=== PATIENT | male | born 1955 | race Caucasian/White ===

== ENCOUNTER 2017-01-04 10:37 | Inpatient (IN) | payer OTHER ==
[2017-01-04] VITALS (7 sets, daily range): BP systolic 110–134; BP diastolic 84–106; PULSE 84–190; RESP 18–22; TEMP 97.5–98; O2SAT 95–100
[~2017-01-04] VITALS: Ht 182.9 cm; Wt 74.5 kg
--- NOTE | 2017-01-04 10:50 | PD ---
HPI Chief Complaint: Cardiac Complaint Time Seen by Provider: 10:47 Travel History International Travel<30 days: No Contact w/Intl Traveler<30days: No Traveled to known affect area: No History of Present Illness HPI Patient is a 61-year-old male presents emergency Department with palpitations the funny feeling in his chest. He is also had some shortness of breath. 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 Initially was noted to have a heart rate of 180 in triage and was brought back to the emergency department expeditiously. He states he is also noticed that his legs of been more swollen recently. Denies any nausea vomiting denies any long stasis trips or history of blood clots. FOR[facility]LY [facility], LATER [facility] Past Medical History Medical History: Denies Significant Hx Past Surgical History Surgical History: No Previous Surgery Social History Alcohol Use: Yes Tobacco Use: Yes Substance Use: No (Ex cocaine user.) Allergies-Medications (Allergen,Severity, Reaction): Coded Allergies: No Known Allergies (Unverified , 01/04/17) Review of Systems Except as stated in HPI: all other systems reviewed are Neg Physical Exam Narrative GENERAL: Well-developed well-nourished no obvious distress SKIN: Focused skin assessment warm/dry. HEAD: Atraumatic. Normocephalic. EYES: Pupils equal and round. No scleral icterus. No injection or drainage. ENT: No nasal bleeding or discharge. Mucous membranes pink and moist. NECK: Trachea midline. No JVD. CARDIOVASCULAR: Mildly tachycardic and regular rhythm.. 2+ bilateral equal pulses in all 4 extremity's.. No murmur appreciated. RESPIRATORY: No accessory muscle use. Clear to auscultation. Breath sounds equal bilaterally. GASTROINTESTINAL: Abdomen soft, non-tender, nondistended. Hepatic and splenic margins not palpable. MUSCULOSKELETAL: No obvious deformities. No clubbing. No cyanosis. 2+ bilateral lower extremity edema from the knees distally. Slightly larger on the right. NEUROLOGICAL: Awake and alert. No obvious cranial nerve deficits. Motor grossly within normal limits. Normal speech. PSYCHIATRIC: Appropriate mood and affect; insight and judgment normal. Data Data Last Documented VS Vital Signs Date Time Temp Pulse Resp B/P Pulse Ox O2 Delivery O2 Flow Rate FiO2 01/04/17 10:55 100 Room Air 01/04/17 10:50 97.9 108 20 134/106 Orders Electrocardiogram (01/04/17 10:47) B-Type Natriuretic Peptide (01/04/17 10:47) Ckmb (Isoenzyme) Profile (01/04/17 10:47) Complete Blood Count With Diff (01/04/17 10:47) Comprehensive Metabolic Panel (01/04/17 10:47) Magnesium (Mg) (01/04/17 10:47) Prothrombin Time / Inr (Pt) (01/04/17 10:47) Act Partial Throm Time (Ptt) (01/04/17 10:47) Troponin I (01/04/17 10:47) Chest, Single Ap (01/04/17 10:47) Ecg Monitoring (01/04/17 10:47) Iv Access Insert/Monitor (01/04/17 10:47) Oximetry (01/04/17 10:47) Oxygen Administration (01/04/17 10:47) Aspirin Chew (Aspirin Chew) (01/04/17 11:00) Sodium Chloride 0.9% Flush (Ns Flush) (01/04/17 11:00) Ct Pulmonary Angiogram (01/04/17 10:47) Us Leg Venous Doppler Bilat (01/04/17 10:47) Sodium Chlorid 0.9% 500 Ml Inj (Ns 500 M (01/04/17 11:00) Iohexol 350 Inj (Omnipaque 350 Inj) (01/04/17 13:21) Furosemide Inj (Lasix Inj) (01/04/17 13:30) Admit Order (Ed Use Only) (01/04/17 ) Labs Laboratory Tests Test 01/04/17 10:55 White Blood Count 7.2 TH/MM3 Red Blood Count 4.54 MIL/MM3 Hemoglobin 13.9 GM/DL Hematocrit 43.2 % Mean Corpuscular Volume 95.2 FL Mean Corpuscular Hemoglobin 30.6 PG Mean Corpuscular Hemoglobin 32.2 % Concent Red Cell Distribution Width 15.5 % Platelet Count 298 TH/MM3 Mean Platelet Volume 7.7 FL Neutrophils (%) (Auto) 64.5 % Lymphocytes (%) (Auto) 24.8 % Monocytes (%) (Auto) 8.5 % Eosinophils (%) (Auto) 1.4 % Basophils (%) (Auto) 0.8 % Neutrophils # (Auto) 4.6 TH/MM3 Lymphocytes # (Auto) 1.8 TH/MM3 Monocytes # (Auto) 0.6 TH/MM3 Eosinophils # (Auto) 0.1 TH/MM3 Basophils # (Auto) 0.1 TH/MM3 CBC Comment DIFF FINAL Differential Comment Prothrombin Time 12.5 SEC Prothromb Time International 1.1 RATIO Ratio Activated Partial 25.4 SEC Thromboplast Time Sodium Level 139 MEQ/L Potassium Level 4.4 MEQ/L Chloride Level 108 MEQ/L Carbon Dioxide Level 23.8 MEQ/L Anion Gap 7 MEQ/L Blood Urea Nitrogen 23 MG/DL Creatinine 1.28 MG/DL Estimat Glomerular Filtration 57 ML/MIN Rate Random Glucose 75 MG/DL Calcium Level 8.6 MG/DL Magnesium Level 2.1 MG/DL Total Bilirubin 0.6 MG/DL Aspartate Amino Transf 28 U/L (AST/SGOT) Alanine Aminotransferase 59 U/L (ALT/SGPT) Alkaline Phosphatase 132 U/L Total Creatine Kinase 96 U/L Troponin I 0.05 NG/ML B-Type Natriuretic Peptide 2441 PG/ML Total Protein 6.9 GM/DL Albumin 3.5 GM/DL [facility] Medical Decision Making Medical Screen Exam Complete: Yes Emergency Medical Condition: Yes Interpretation(s) EKG shows sinus tachycardia at a rate of 114, intervals otherwise within normal limits. Left atrial enlargement, borderline LVH. T-wave inversions in V4 through V6 without any ST segment elevation. This is an abnormal EKG. Differential Diagnosis DVT, PE, ACS, acute CHF, new onset CHF, AMI. Narrative Course Patient roomed emergency department, initial workup and physical exam consistent with new onset CHF and pleural effusions. DVT study negative, PE study negative. Recommended patient to be admitted for new onset CHF and management an. He is agreeable. Was given Lasix. Aspirin. Heart rate somewhat better in emerged Department with minimal intervention. Diagnosis Primary Impression: Tachycardia Additional Impressions: New onset of congestive heart failure Heart failure Pleural effusion Admitting Information Admitting Physician Requests: Admit Condition: Stable Heri Cramer MD Jan 04, 2017 10:50
[2017-01-04] MEDS ORDERED: SODIUM CHLORID 0.9% 500 ML INJ 500 ML IV ONE (11:00)
[2017-01-04] MEDS ORDERED: ASPIRIN 81 MG CHEW TAB PO ONE (11:00)
[2017-01-04] MEDS ORDERED: SODIUM CHLORIDE 0.9% FLUSH 10 ML FLUSH IVF PRN (11:00)
[2017-01-04 11:16] LABS: AUTOMATED NEUTROPHIL # 4.6 TH/MM3 (1.8-7.7); BASOPHIL # 0.1 TH/MM3 (0-0.2); BASOPHIL % 0.8 % (0.0-2.0); EOSINOPHIL # 0.1 TH/MM3 (0-0.4); EOSINOPHIL % 1.4 % (0.0-4.0); HEMATOCRIT 43.2 % (39.0-51.0); HEMO FLAGS DIFF FINAL; LYMPH % 24.8 % (9.0-44.0); LYMPHOCYTE # 1.8 TH/MM3 (1.0-4.8); MEAN CELL VOLUME 95.2 FL (80.0-100.0); MEAN CORPUSCULAR HEMOGLOBIN 30.6 PG (27.0-34.0); MEAN CORPUSCULAR HGB CONC 32.2 % (32.0-36.0); MONO % 8.5 % (0.0-8.0); NEUT % 64.5 % (16.0-70.0); PLATELET COUNT 298 TH/MM3 (150-450); RED BLOOD COUNT 4.54 MIL/MM3 (4.50-5.90); RED CELL DISTRIBUTION WIDTH 15.5 % (11.6-17.2); WHITE BLOOD COUNT 7.2 TH/MM3 (4.0-11.0)
[2017-01-04 11:21] LABS: APTT (PATIENT) 25.4 SEC (24.3-30.1); INTERNATIONAL NORMALIZED RATIO 1.1 RATIO; PROTHROMBIN TIME - PATIENT 12.5 SEC (9.8-11.6)
[2017-01-04 11:30] LABS: ANION GAP 7 MEQ/L (5-15); AST (GOT) 28 U/L (15-37); BICARBONATE 23.8 MEQ/L (21.0-32.0); BLOOD UREA NITROGEN 23 MG/DL (7-18); CHLORIDE 108 MEQ/L (98-107); GLOMERULAR FILTRATION RATE 57 ML/MIN (>89); MAGNESIUM 2.1 MG/DL (1.5-2.5); POTASSIUM 4.4 MEQ/L (3.5-5.1); SODIUM (NA) 139 MEQ/L (136-145)
[2017-01-04 11:31] LABS: ALT (GPT) 59 U/L (12-78)
[2017-01-04 11:35] LABS: ALKALINE PHOSPHATASE 132 U/L (45-117); TOTAL BILIRUBIN ADULT 0.6 MG/DL (0.2-1.0)
[2017-01-04 11:39] LABS: CREATINE KINASE 96 U/L (39-308)
--- NOTE | 2017-01-04 11:51 | RADRPT ---
EXAM DATE/TIME: 01/04/2017 11:08 [facility] COMPARISON: No previous studies available for comparison. INDICATIONS : Short of breath and difficulty breathing for a few weeks. MEDICAL HISTORY : None. SURGICAL HISTORY : None. ENCOUNTER: Initial ACUITY: 2 weeks PAIN SCORE: 0/10 LOCATION: Bilateral chest FINDINGS: The heart is enlarged. Minimal patchiness is noted within the right medial lung base consistent with atelectasis and/or mild infiltrate. The left lung is clear. CONCLUSION: 1. Minimal patchiness within the medial aspect of the right lung base consistent with atelectasis and /or mild infiltrate. Clinical correlation is recommended. 2. Cardiomegaly. Heri Patino MD on January 04, 2017 at 11:21 Board Certified Radiologist. This report was verified electronically.
--- NOTE | 2017-01-04 12:21 | RADRPT ---
EXAM DATE/TIME: 01/04/2017 11:16 [facility] COMPARISON: No previous studies available for comparison. INDICATIONS : Bilateral leg swelling. MEDICAL HISTORY : Bilateral leg swelling. SURGICAL HISTORY : None. ENCOUNTER: Initial ACUITY: 1 week PAIN SCORE: 4/10 LOCATION: Bilateral leg. TECHNIQUE: Venous ultrasound of the left and right leg was performed from the inguinal ligament to the proximal calf. Real-time, color Doppler and spectral tracing, compression and augmentation techniques were us ed. FINDINGS: RIGHT LEG: There is normal compressibility of the deep venous system from the inguinal region to the proximal ca lf. No echogenic clot is seen in the lumen of the common femoral, femoral, popliteal, and posterior tibial veins. There is a normal response of the venous system to proximal and distal augmentation an d respiration. LEFT LEG: There is normal compressibility of the deep venous system from the inguinal region to the proximal ca lf. No echogenic clot is seen in the lumen of the common femoral, femoral, popliteal, and posterior tibial veins. There is a normal response of the venous system to proximal and distal augmentation an d respiration. CONCLUSION: No evidence of deep venous thrombosis within the lower extremities. Heri Patino MD on January 04, 2017 at 12:19 Board Certified Radiologist. This report was verified electronically.
[2017-01-04] MEDS ORDERED: IOHEXOL 350 MG/ML 10 ML VIAL (for RAD DIAG) IV ONE (13:21)
[2017-01-04] MEDS ORDERED: FUROSEMIDE 40 MG/4 ML VIAL IV PUSH ONE (13:30)
--- NOTE | 2017-01-04 13:31 | RADRPT ---
EXAM DATE/TIME: 01/04/2017 13:12 [facility] COMPARISON: CHEST SINGLE AP, January 04, 2017, 11:08. INDICATIONS : Dypsnea with shortness of breath and difficulty breathing. Bilateral lower extremity swelling. IV CONTRAST: 55 cc Omnipaque 350 (iohexol) IV RADIATION DOSE: 10.03 CTDIvol (mGy) MEDICAL HISTORY : None SURGICAL HISTORY : None. ENCOUNTER: Initial ACUITY: 1 day PAIN SCALE: 2/10 LOCATION: chest TECHNIQUE: Volumetric scanning of the chest was performed using a pulmonary embolism protocol MIP images were re constructed. Using automated exposure control and adjustment of the mA and/or kV according to patien t size, radiation dose was kept as low as reasonably achievable to obtain optimal diagnostic quality images. DICOM format image data is available electronically for review and comparison. Follow-up recommendations for detected pulmonary nodules are based at a minimum on nodule size and pa tient risk factors according to Fleischner Society Guidelines. FINDINGS: PULMONARY ARTERIES: No filling defects are seen in the pulmonary arteries through the segmental level. LUNGS: There is no pneumothorax . There is mild patchy consolidation in the right posterior lung base which may be compressive. No concerning pulmonary nodule is visualized. PLEURAE: There are small to moderate bilateral pleural effusions right greater than left. MEDIASTINUM: There is good visualization of the great vessels of the middle mediastinum. No evidence of mediastin al or hilar adenopathy/mass. Heart size is mildly enlarged. MUSCULOSKELETAL: Within normal limits for patient age. MISCELLANEOUS: The visualized upper abdominal organs demonstrate no acute abnormality. There are degenerative change s in the right glenohumeral joint. CONCLUSION: 1. No evidence of pulmonary embolism. 2. Rhls-th-[id number] bilateral pleural effusions right greater than left. 3. No pulmonary edema. Andrew French MD on January 04, 2017 at 13:27 Board Certified Radiologist. This report was verified electronically.
[2017-01-04] MEDS ORDERED: SODIUM CHLORIDE 0.9% FLUSH 10 ML FLUSH IV FLUSH PRN (14:00)
[2017-01-04] MEDS ORDERED: HEPARIN SODIUM - SQ 10,000 UNITS/ML VIAL SQ SCH (15:00)
--- NOTE | 2017-01-04 15:31 | PD.CONS ---
HPI Consult Requested By Primary Care Physician No Primary Care Physician History of Present Illness 61-year-old male presents to the ER with palpitations and shortness of breath no significant past medical history. 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 In the triage heart rate of 180, uncontrolled BP. He also reports legs swelling. BNP elevated. Denies nausea, vomiting, diarrhea, bleeding, chills, fever, chest pain, PND or orthopnea. Cardiology consulted for evaluation of new onset CHF. Review of Systems Consitutional: DENIES: Fatigue, Fever, Chills, Weight gain, Weight loss Eyes: DENIES: Amaurosis Fugax, Change in vision HEENT: DENIES: Lightheadedness, Change in hearing Respiratory: DENIES: See HPI, Cough, Snoring, Shortness of breath, Wheezing, Sputum production Cardiovascular: COMPLAINS OF: See HPI, Palpitations, DENIES: Chest pain, Syncope, Tachycardia Gastrointestinal: DENIES: Nausea, Vomiting, Change in bowel habits, Reflux, Bloody stools, Melena Genitourinary: DENIES: Urinary incontinence, Difficulty voiding Integumentary: DENIES: Rash Neurologic: DENIES: Tingling or numbness, Memory problems, Poor Balance, Stroke symptoms Musculoskeletal: DENIES: Joint pain, Muscle pain, Limited range of motion, Back pain Psychiatric: DENIES: Anxiety, Depression, Sleep disturbances Hematologic: DENIES: Bruising tendencies, Bleeding tendencies Endocrine: DENIES: Weight gain, Weight loss, Thyroid disease Past Family Social History Allergies: Coded Allergies: No Known Allergies (Unverified , 01/04/17) Past Medical History None Past Surgical History None Reported Medications Current Medications Medications (Trade) Dose Ordered Sig/Gian Route Start Time Stop Time Status Last Admin (NS Flush) 2 ml UNSCH PRN IVF 01/04/17 11:00 (NS Flush) 2 ml BID IV FLUSH 01/04/17 21:00 (Lasix Inj) 40 mg BID@18 IVP 01/05/17 09:00 (KCl) 20 meq DAILY PO 01/05/17 09:00 (Aspirin Chew) 81 mg DAILY CHEW 01/05/17 09:00 (Prinivil) 10 mg DAILY PO 01/05/17 09:00 (Heparin Inj) 5,000 units Q12H SQ 01/04/17 15:00 Active Ordered Medications Current Medications Medications (Trade) Dose Ordered Sig/Gian Route Start Time Stop Time Status Last Admin (NS Flush) 2 ml UNSCH PRN IVF 01/04/17 11:00 (NS Flush) 2 ml BID IV FLUSH 01/04/17 21:00 (Lasix Inj) 40 mg BID@09,18 IVP 01/05/17 09:00 (KCl) 20 meq DAILY PO 01/05/17 09:00 (Aspirin Chew) 81 mg DAILY CHEW 01/05/17 09:00 (Prinivil) 10 mg DAILY PO 01/05/17 09:00 (Heparin Inj) 5,000 units Q12H SQ 01/04/17 15:00 Social History +Alcohol + hx Cocaine Physical Exam Vital Signs Vital Signs Date Time Temp Pulse Resp B/P Pulse Ox O2 Delivery O2 Flow Rate FiO2 01/04/17 10:55 100 Room Air 01/04/17 10:55 100 Room Air 01/04/17 10:50 97.9 108 20 134/106 100 Room Air 01/04/17 10:46 97.9 112 22 134/106 100 01/04/17 10:42 97.5 190 19 131/100 95 Laboratory Laboratory Tests Test 01/04/17 10:55 White Blood Count 7.2 Red Blood Count 4.54 Hemoglobin 13.9 Hematocrit 43.2 Mean Corpuscular Volume 95.2 Mean Corpuscular Hemoglobin 30.6 Mean Corpuscular Hemoglobin 32.2 Concent Red Cell Distribution Width 15.5 Platelet Count 298 Mean Platelet Volume 7.7 Neutrophils (%) (Auto) 64.5 Lymphocytes (%) (Auto) 24.8 Monocytes (%) (Auto) 8.5 Eosinophils (%) (Auto) 1.4 Basophils (%) (Auto) 0.8 Neutrophils # (Auto) 4.6 Lymphocytes # (Auto) 1.8 Monocytes # (Auto) 0.6 Eosinophils # (Auto) 0.1 Basophils # (Auto) 0.1 CBC Comment DIFF FINAL Differential Comment Prothrombin Time 12.5 Prothromb Time International 1.1 Ratio Activated Partial 25.4 Thromboplast Time Sodium Level 139 Potassium Level 4.4 Chloride Level 108 Carbon Dioxide Level 23.8 Anion Gap 7 Blood Urea Nitrogen 23 Creatinine 1.28 Estimat Glomerular Filtration 57 Rate Random Glucose 75 Calcium Level 8.6 Magnesium Level 2.1 Total Bilirubin 0.6 Aspartate Amino Transf 28 (AST/SGOT) Alanine Aminotransferase 59 (ALT/SGPT) Alkaline Phosphatase 132 Total Creatine Kinase 96 Troponin I 0.05 B-Type Natriuretic Peptide 2441 Total Protein 6.9 Albumin 3.5 Result Diagram: 01/04/17 1055 01/04/17 1055 Imaging Last Impressions Lower Extremity Ultrasound 01/04/17 1047 Signed Impressions: Service Date/Time: December 11:16 - CONCLUSION: No evidence of deep venous thrombosis within the lower extremities. Heri Patino MD Chest X-Ray 01/04/17 104 Signed Impressions: Service Date/Time: , January 04, 2017 11:08 - CONCLUSION: 1. Minimal patchiness within the medial aspect of the right lung base consistent with atelectasis and/or mild infiltrate. Clinical correlation is recommended. 2. Cardiomegaly. Heri Patino MD CT Angiography 01/04/171046 Signed Impressions: Service Date/Time: December 13:12 - CONCLUSION: 1. No evidence of pulmonary embolism. 2. [id number] bilateral pleural effusions right greater than left. 3. No pulmonary edema. Andrew French MD Assessment and Plan Problem List: (1) Heart failure Assessment and Plan: 61 y/o M with new onset heart failure. Cardiac risk factors uncontrolled BP, age. Chest pain free. Recommendations: - IV diuresis - Strict I&O - Low salt diet - 2Dechocardiogram - Aspirin 81 mg PO daily - Lipid profile - TSH, Free T3 and T4 - Cycle cardiac markers x3 - Toxicology screen - Ischemic w/o before d/c (2) Tachycardia Villafuerte-Moe Silver MD Jan 04, 2017 15:31
--- NOTE | 2017-01-04 16:07 | HHI.HP ---
[facility] No Primary Care Physician Admission Diagnosis New Onset CHF, SOB. Diagnoses: (1) New onset of congestive heart failure Chief Complaint: Dyspnea Travel History International Travel<30 Days: No Contact w/Intl Traveler <30 Da: No Traveled to Known Affected Are: No History of Present Illness The patient is a 61-year-old male who denies prior medical history. He presented to emergency department with complaint of shortness of breath has been worsening over last few days. It initially started about 2 weeks ago. 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 He reports increased swelling in both legs. He denies chest pain. He states that he had an episode of worsening shortness of breath about 10 days ago. He states that he contacted a friend who is a physician and advised him to come to the hospital because he was "having a heart attack". The patient did not seek medical attention at that time. He is not having any chest pain now. Review of Systems Constitutional: DENIES: Fever, Chills, Night Sweats Eyes: DENIES: Blurred vision, Vision loss Ears, nose, mouth, throat: DENIES: Hearing loss Respiratory: COMPLAINS OF: Shortness of breath, DENIES: Cough, Wheezing, Sputum production Cardiovascular: COMPLAINS OF: Dyspnea on Exertion, Lower Extremity Edema, DENIES: Chest pain, Palpitations Gastrointestinal: DENIES: Abdominal pain, Constipation, Diarrhea, Nausea, Vomiting Genitourinary: DENIES: Urinary frequency, Urinary incontinence, Urgency, Hematuria, Dysuria, Nocturia Musculoskeletal: DENIES: Joint pain, Muscle aches Integumentary: DENIES: Pruritus, Rash Hematologic/lymphatic: DENIES: Bruising Neurologic: DENIES: Headache Past Family Social History Past Medical History History of hypertension many years ago, patient states that resolved with diet changes Past Surgical History Inguinal hernia surgery 2 Tonsillectomy Orchiectomy Reported Medications None Allergies: Coded Allergies: No Known Allergies (Unverified , 01/04/17) Family History Heart disease, hypertension Social History Denies tobacco use. Has history of heavy alcohol use. Recently switched from vodka to beer. Reports history of cocaine use, most recently 1 month ago. Denies IV drug use. Physical Exam Vital Signs Vital Signs Date Time Temp Pulse Resp B/P Pulse Ox O2 Delivery O2 Flow Rate FiO2 01/04/17 10:55 100 Room Air 01/04/17 10:55 100 Room Air 01/04/17 10:50 97.9 108 20 134/106 100 Room Air 01/04/17 10:46 97.9 112 22 134/106 100 01/04/17 10:42 97.5 190 19 131/100 95 Physical Exam GENERAL: Well-nourished, well-developed male in no acute distress. HEENT: Normocephalic, atraumatic. Pupils equal, round and reactive. Extraocular movements intact. No scleral icterus. No injection or drainage. Oropharynx is clear. Mucous membranes are moist. Dentures. CARDIOVASCULAR: Tachycardic. 2/6 systolic murmur. RESPIRATORY: Bibasilar crackles are noted. Breathing is non-labored. GASTROINTESTINAL: Abdomen soft, non-tender, nondistended. EXTREMITIES: 2+ bilateral ankle edema. No calf tenderness. PSYCH: Alert and oriented x 3. Laboratory Laboratory Tests Test 01/04/17 10:55 White Blood Count 7.2 Red Blood Count 4.54 Hemoglobin 13.9 Hematocrit 43.2 Mean Corpuscular Volume 95.2 Mean Corpuscular Hemoglobin 30.6 Mean Corpuscular Hemoglobin 32.2 Concent Red Cell Distribution Width 15.5 Platelet Count 298 Mean Platelet Volume 7.7 Neutrophils (%) (Auto) 64.5 Lymphocytes (%) (Auto) 24.8 Monocytes (%) (Auto) 8.5 Eosinophils (%) (Auto) 1.4 Basophils (%) (Auto) 0.8 Neutrophils # (Auto) 4.6 Lymphocytes # (Auto) 1.8 Monocytes # (Auto) 0.6 Eosinophils # (Auto) 0.1 Basophils # (Auto) 0.1 CBC Comment DIFF FINAL Differential Comment Prothrombin Time 12.5 Prothromb Time International 1.1 Ratio Activated Partial 25.4 Thromboplast Time Sodium Level 139 Potassium Level 4.4 Chloride Level 108 Carbon Dioxide Level 23.8 Anion Gap 7 Blood Urea Nitrogen 23 Creatinine 1.28 Estimat Glomerular Filtration 57 Rate Random Glucose 75 Calcium Level 8.6 Magnesium Level 2.1 Total Bilirubin 0.6 Aspartate Amino Transf 28 (AST/SGOT) Alanine Aminotransferase 59 (ALT/SGPT) Alkaline Phosphatase 132 Total Creatine Kinase 96 Troponin I 0.05 B-Type Natriuretic Peptide 2441 Total Protein 6.9 Albumin 3.5 Result Diagram: 01/04/17 1055 01/04/17 1055 Imaging Last Impressions Lower Extremity Ultrasound 01/04/17 1047 Signed Impressions: Service Date/Time: December 11:16 - CONCLUSION: No evidence of deep venous thrombosis within the lower extremities. Heri Patino MD Chest X-Ray 01/04/17 104 Signed Impressions: Service Date/Time: , January 04, 2017 11:08 - CONCLUSION: 1. Minimal patchiness within the medial aspect of the right lung base consistent with atelectasis and/or mild infiltrate. Clinical correlation is recommended. 2. Cardiomegaly. Heri Patino MD CT Angiography 01/04/171046 Signed Impressions: Service Date/Time: December 13:12 - CONCLUSION: 1. No evidence of pulmonary embolism. 2. [id number] bilateral pleural effusions right greater than left. 3. No pulmonary edema. Andrew French MD Assessment and Plan Assessment and Plan 1. New onset congestive heart failure: Appreciate cardiology recommendations. Continue diuresis. Strict intake/output. Heart healthy diet. Check 2-D echocardiogram. Aspirin 81 mg daily. Monitor on telemetry. 2. Alcohol abuse: Patient was counseled. CIWA protocol. Alcohol withdrawal precautions. 3. Cocaine abuse: Patient was counseled. States that his most recent use was 1 month ago. Check toxicology screen. 4. DVT prophylaxis: Heparin. Sukumar Locke MD Jan 04, 2017 16:07
[2017-01-04] MEDS ORDERED: IOHEXOL 350 MG/ML 100 ML BTL (for Cath Lab) OTHER ONE (18:38)
[2017-01-04] MEDS ORDERED: HEPARIN-NS/PF INJ 500 ML ONE (18:42)
[2017-01-04] MEDS ORDERED: MIDAZOLAM HCL 2 MG/2 ML VIAL ONE (18:51)
[2017-01-04] MEDS ORDERED: ONDANSETRON HCL 4 MG/2 ML VIAL IV PRN (20:00)
[2017-01-04] MEDS ORDERED: ATROPINE SULFATE 1 MG/ML VIAL IV PRN (20:00)
[2017-01-04] MEDS ORDERED: MISC INFORMATION XX ONE (20:00)
--- NOTE | 2017-01-04 20:07 | CATHPROC ---
[employer] HIS Report Study Information Study Number Admission Scheduled Start Study Start [id number] Jan 04 2017 1:49PM 01/04/2017 Jan 04 2017 6:30PM [facility] Service Cardiac Catheterization Admit Source Facility Department Emergency department [facility] - Digital Strategy Director Physician and Clinical Staff Initial Moe Maxwell Ophthalmic Medical Technician Sandar Middleton,MARTA Recorder Keila Ruffin,RT(R) (BS) Recorder Vivien Spangler,RT(R) Andrew Torres RCIS(BS) Procedures Performed Procedure Location (Site) Vessel Name Angiogram LV LV Ventricle Coronary Angiograms LCA Left Coronary Coronary Angiograms RCA Right Coronary L Heart Cath Wire insertion Fem Art (right) Femoral Art Equipment Time Wholesale Diamond Broker Description Size Mfg Part Number Used/Scraped PERCLOSE, PRO GLIDE CLOSER 19:41 PAN [employer]ITICAL CARE FR 6 [id number] *[id number] Used DEVICE TRANSDUCER, TRUWAVE [id number] 19:16 REYES ELDRIDGE * Used W/STOCKCOCK *[id number]- INTRODUCER SET, 19:16 [employer]. FR 5 SC-NT-U-SST Used MICROPUNCTURE, STIFFENED *[id number] 534-545T *[id number] 534-546T *[id number] 534-520T *[id number] 534-521T *[id number] [id number] *[id number] WIRE, AMPLATZ SUPER STIFF 19:22 Meditech .035 [id number] *[id number] Used STRT [id number] 19:16 [email or web address] PACK, CCL CUSTOM * Used *[id number] 19:16 Protean Payment MEDICAL WIRE, 3MMJ .035 180CM 180CM Used *[id number] 19:16 NAMIC MANIFOLD, 4 PORT * Used *[id number] 19:35 NYCOMED OMNIPAQUE, 300 MG, 50ML 50ML [id number] Used 19:16 NYCOMED OMNIPAQUE, 350 MG, 150ML 150ML [id number] Used [id number] 19:16 BOTELLO MEDICAL BLANKET,WARM AIR CCL * Used *[id number] 19:16 TERUMO MEDICAL SHEATH, FR5 TERUMO (10CM) FR 5 Used *[id number] Equipment Model, Serial, Lot Number and Expiration Data Description Model Number Serial Number Lot Number Expiration Date WIRE, AMPLATZ SUPER STIFF STRT [id number] 10-16-2019 History: Current Medications Medication Dosage/Unit Route Frequency Last Date/Time Taken HEPARIN ASA History: Allergies Allergy Reaction No Known Allergies History: Risk Factors Family History of Hypertension Dyslipidemia Previous CO Previous Heart Failure Premature CAD Yes No No No Yes Prior Valve Prior PCI Prior CABG Surgery No No No Cerebrovascular Peripheral Artery Chronic Lung On Dialysis Diabetes Disease Disease Disease No No No No No History: Symptoms/Diagnosis Selection Items Chest pain History: Stress Tests Stress or Imaging Studies Performed No History: Other Current Smoker No Labs Hgb (g/dl) Hct (%) WBC (l/cumm) Platelets (thousands) 11.60-17.00 35.00-51.00 4.00-11.00 150.00-450.00 13.9 43.2 7.2 298 Glucose (mg/dl) BUN (mg/dl) Creatinine (mg/dl) BUN:Creatinine (1:x) 74.00-106.00 7.00-18.00 0.50-1.30 10.00-20.00 75 23 1.2 19.2 Na (meq/l) K (meq/l) 136.00-145.00 3.50-5.10 139 4.4 INR (PTT:PT) 0.90-1.10 1.1 Medication Medication Total Dose (Bolus/Oral) Medication Total Dosage/Unit 1% XYLOCAINE 20 mL FENTANYL 50 mcg VERSED 2 mg Medications (Bolus/Oral) Medication Time Given Dosage/Unit Administered By Reason VERSED 01/04/2017 7:11:30 PM 2 mg Sandra Middleton 2 mg VERSED given in lab by Sandra Middleton, MARTA in Left Antecubital via Peripheral IV. Ordered by Moe Casper. FENTANYL 01/04/2017 7:12:45 PM 50 mcg Sandra Middleton 50 mcg FENTANYL given in lab by Sandra Middleton RN in Left Antecubital via Peripheral IV. Ordered by Moe Ruggiero. 1% XYLOCAINE 01/04/2017 7:13:18 PM 20 mL Moe Ruggiero 20 mL 1% XYLOCAINE given in lab by Moe Ruggiero in Right Groin via Subcutaneous. Ordered by Moe Casper. Medication (Drip) Medication Time Given Dosage/Unit Concentration/Unit Diluent (ml) Solution IV Solutions 01/04/2017 6:38:28 PM 50 mL (IV) 500 NaCl .9 IV Solutions given in lab by Sandra Middleton RN in Left Antecubital via Peripheral IV. Pump/Drip Flow using NaCl .9. Initial Case Assessment Cardiovascular HR Rhythm NIBP Chest Pain 96 nsr 129/103 0 Edema Present Skin color Skin Moderate Normal Warm Circulatory - Right Pulses Dorsalis Pedis Femoral 3 3 Scale (0,1,2,3,4,d) Circulatory - Left Pulses Dorsalis Pedis Femoral 3 3 Scale (0,1,2,3,4,d) Circulatory - Lower Extremities Color Lower Right Color Lower Left Normal Normal Neurological State Oriented to time-place- Alert Moves all extremities person Respiration - General Respiration Rate SpO2 (%) (B/min) 20 100 Final Case Assessment Cardiovascular HR Rhythm NIBP Chest Pain 88 nsr 113/90 0 Edema Present Skin color Skin Moderate Normal Warm Circulatory - Right Pulses Dorsalis Pedis Femoral 3 3 Scale (0,1,2,3,4,d) Circulatory - Left Pulses Dorsalis Pedis Femoral 3 3 Scale (0,1,2,3,4,d) Circulatory - Lower Extremities Color Lower Right Color Lower Left Normal Normal Neurological State Oriented to time-place- Alert Moves all extremities person Respiration - General Respiration Rate SpO2 (%) (B/min) 19 97 Chronological Log Time Study Chronological Log 18:38:28 IV Solutions given in lab by Sandra Middleton RN in Left Antecubital via Peripheral IV. Pump /Drip Flow using NaCl .9. 18:38:49 Patient arrived via Bed. 18:38:50 Patient Name, D.O.B, / Armband Verified By R.N. 18:42:17 Consent signed by the physician and the patient and verified by the Digital Strategy Director staff. 18:42:19 Pre-op and post- op instructions given; patient acknowledges understanding of instructions. 18:42:20 Verbal Stimulation=2 Physical Stimulation=2 Airway=2 Respiration=2 TOTAL=8. (0=absent, 1=li mited, 2=present) 18:42:23 Presedation assessment performed by Digital Strategy Director RN. 18:43:21 Patient has been NPO for More than 6Hrs. 18:43:22 Skin Breakdown- none per pt 18:43:23 Patient Warmer Placed on the Table. 18:43:25 Roselia Prominences Protected 18:43:27 A # 20 IV was noted in the Antecubital (left). Grade = 0 18:43:29 History and physical on the chart or being dictated. Assessment: Initial Case, HR=96 BPM, Rhythm=nsr, JFHW=715/103 mmhg, Chest Pain=0, Edema=Mod, Co andrzej=Normal, Skin = Warm Right Pulses: John Ped=3, Femoral=3 Left Pulses: John Ped=3, Femoral=3 18:43:30 Lower Right Extremities: Color=Normal Lower Left Extremities: Color=Normal Neurological: State=Alert, Ox3, WALLER Respiration: Resp=20 B/min, PgY0=574 % Vitals capture started with the following parameters, Patient=Adult, Interval=3 min, Initial Pr uicroy=569 mmHg, 18:46:27 Deflation Rate=5 mmHg, Cuff placed on Right Arm 18:46:59 HR=96 bpm, CEBP=181/103 mmhg, HfZ3=548 %, Resp=23 B/min, Pain=0, Augie=10, Krueger=2 18:47:18 Reference ECG taken 18:49:59 HR=98 bpm, LXBH=057/101 mmhg, SpO2=98.0 %, Resp=28 B/min, Pain=0, Augie=10, Krueger=2 18:52:59 HR=98 bpm, CRSD=825/101 mmhg, WxS6=963.0 %, Resp=21 B/min, Pain=0, Augie=10, Krueger=2 18:55:58 HR=95 bpm, GLZG=238/104 mmhg, SpO2=99.0 %, Resp=22 B/min, Pain=0, Augie=10, Krueger=2 18:59:02 HR=92 bpm, VJKH=741/85 mmhg, Resp=17 B/min, Pain=0, Augie=10, Krueger=2 19:01:58 HR=92 bpm, ZLHE=126/102 mmhg, Resp=24 B/min, Pain=0, Augie=10, Krueger=2 19:03:52 Bilateral groins prepped with 2% chlorhexidine, and draped after a 3 min. waiting time. 19:04:58 HR=92 bpm, OVLT=602/102 mmhg, IfF6=096 %, Resp=23 B/min, Pain=0, Augie=10, Krueger=2 19:05:38 Pressure channel 1 zeroed. 19:07:59 HR=95 bpm, LLVD=709/104 mmhg, WqB0=946.0 %, Resp=22 B/min, Pain=0, Augie=10, Krueger=2 19:09:52 MD paged 19:09:55 MD responded 19:10:59 HR=97 bpm, ORNT=956/104 mmhg, GmF6=791.0 %, Resp=20 B/min, Pain=0, Augie=10, Krueger=2 19:11:27 MD arrived. 19:11:30 2 mg VERSED given in lab by Sandra Middleton, RN in Left Antecubital via Peripheral IV. Order ed by Moe Ruggiero. 50 mcg FENTANYL given in lab by Sandra Middleton, MARTA in Left Antecubital via Peripheral IV. Order ed by Bahman, 19:12:45 Moe. Time Out. Correct patient, correct procedure,correct physician, power injector not loaded with contrast with surgical 19:12:54 team present. Time Out Concurred by , individual staff in procedure 19:13:16 Case Start 20 mL 1% XYLOCAINE given in lab by Moe Ruggiero in Right Groin via Subcutaneous. Ordered b y Bahman, 19:13:18 Moe. 19:13:59 HR=97 bpm, JATV=400/103 mmhg, KfV2=530.0 %, Resp=22 B/min, Pain=0, Augie=10, Krueger=2 19:14:20 Access site was Right Femoral Artery. A INTRODUCER SET, MICROPUNCTURE, STIFFENED FR 5 was advanced into the Fem Art (right) using the 19:14:32 Percutaneous technique. A SHEATH, FR5 TERUMO (10CM) FR 5 was exchanged in the Fem Art (right). This was necessary in or gareth to 19:14:59 accomodate a larger catheter. 19:15:34 An injection in the Fem Art (right) was made through the SHEATH, FR5 TERUMO (10CM) FR 5. A JR 4.0 INFINITI CATHETER FR 5 was advanced over a wire. OMNIPAQUE, 350 MG, 150ML 150ML was us ed for 19:16:19 injections. 19:16:59 PD=846 bpm, ODHN=450/101 mmhg, SpO2=98.0 %, Resp=18 B/min, Pain=0, Augie=10, Krueger=2 19:17:40 The RCA was injected and visualized at various angles. OMNIPAQUE, 350 MG, 150ML 150ML used . 19:18:28 Catheter was removed A JL 4.0 INFINITI CATHETER FR 5 was advanced over a wire. OMNIPAQUE, 350 MG, 150ML 150ML was us ed for 19:18:29 injections. 19:19:29 The LCA was injected and visualized at various angles. OMNIPAQUE, 350 MG, 150ML 150ML used . 19:19:59 YU=239 bpm, QIUV=321/105 mmhg, SpO2=97.0 %, Resp=18 B/min, Pain=0, Augie=10, Krueger=2 Recorded Pressure: Ao, HI=893, Condition=Condition 1 19:20:34 (Aorta) Ao 118/97/107 19:20:43 Catheter was removed A JL 5.0 INFINITI CATHETER FR 5 was advanced over a wire. OMNIPAQUE, 350 MG, 150ML 150ML was us ed for 19:21:23 injections. 19:23:00 HR=97 bpm, FKAC=065/101 mmhg, SpO2=97.0 %, Resp=17 B/min, Pain=0, Augie=10, Krueger=2 19:23:08 Catheter was removed A AL 1 INFINITI CATHETER FR 5 was advanced over a wire. OMNIPAQUE, 350 MG, 150ML 150ML was used for 19:23:13 injections. 19:24:23 A WIRE, AMPLATZ SUPER STIFF STRT .035 was inserted via Fem Art (right). 19:25:26 Wire removed 19:25:31 Catheter was removed A AL 2 INFINITI CATHETER FR 5 was advanced over a wire. OMNIPAQUE, 350 MG, 150ML 150ML was used for 19:25:38 injections. 19:25:58 HR=97 bpm, JCHP=264/94 mmhg, SpO2=97.0 %, Resp=15 B/min, Pain=0, Augie=10, Krueger=2 19:26:49 A WIRE, AMPLATZ SUPER STIFF STRT .035 was inserted via Fem Art (right). 19:27:57 Wire removed 19:29:00 HR=98 bpm, OTZS=530/91 mmhg, SpO2=98.0 %, Resp=15 B/min, Pain=0, Augie=10, Krueger=2 19:29:07 A WIRE, AMPLATZ SUPER STIFF STRT .035 was inserted via Fem Art (right). 19:29:47 Catheter was removed A PIGTAIL ANG. INFINITI CATHETER FR 5 was advanced over a wire. OMNIPAQUE, 350 MG, 150ML 150ML was used 19:29:51 for injections. 19:30:52 Wire removed Recorded Pressure: LV, HR=98, Condition=Condition 1 19:31:29 (Left Ventricle) LV 150/17/33 19:32:43 HR=95 bpm, KPOI=627/93 mmhg, SpO2=97.0 %, Resp=15 B/min, Pain=0, Augie=10, Krueger=2 19:32:55 Power injector loaded by 19:33:52 The LV was injected at 15 cc/sec for a total of 30. OMNIPAQUE, 300 MG, 50ML 50ML used. 19:34:56 HR=95 bpm, QDMD=405/93 mmhg, SpO2=97.0 %, Resp=14 B/min, Pain=0, Augie=10, Krueger=2 Recorded Pressure: LV, Ao, HR=97, Condition=Condition 1 19:35:18 (Left Ventricle) LV 152/18/37, (Aorta) Ao 111/84/97 19:37:59 HR=92 bpm, OKRL=626/94 mmhg, SpO2=98.0 %, Resp=15 B/min, Pain=0, Augie=10, Krueger=2 19:39:40 PERCLOSE, PRO GLIDE CLOSER DEVICE FR 6 placement in the Fem Art (right) 19:39:57 Case End 19:39:59 Sterile dressing applied to site 19:40:00 Contrast Scanned 19:40:00 No case complications noted. 19:40:12 Cine recording checked. 19:40:59 HR=94 bpm, VAGS=658/92 mmhg, SpO2=98.0 %, Resp=20 B/min 19:44:01 HR=90 bpm, TPGM=381/91 mmhg, SpO2=98.0 %, Resp=17 B/min 19:47:01 HR=88 bpm, DOSY=049/90 mmhg, SpO2=97.0 %, Resp=19 B/min Assessment: Final Case, HR=88 BPM, Rhythm=nsr, WZJE=091/90 mmhg, Chest Pain=0, Edema=Mod, Deep [place] r=Normal, Skin = Warm Right Pulses: John Ped=3, Femoral=3 Left Pulses: John Ped=3, Femoral=3 19:48:40 Lower Right Extremities: Color=Normal Lower Left Extremities: Color=Normal Neurological: State=Alert, Ox3, WALLER Respiration: Resp=19 B/min, SpO2=97 % 19:55:29 A Left Heart Cath was performed. 19:56:14 Patient moved to bed End Study - Contrast Media Used In Study Contrast Total Opened (mL) Total Used (mL) Total Wasted (mL) Omnipaque 90 90 0 End Study - Maximum Contrast Load Max Contrast Load (mL) 341.7 End Study - Radiation Exposure Fluoro Time (minutes) 7.8 End Study - Patient Disposition Complications Transferred To Interventional Outcome No Telemetry Bed No attempt made
[2017-01-04] MEDS: SODIUM CHLORIDE 0.9% FLUSH 10 ML FLUSH IV FLUSH SCH (21:00)
--- NOTE | 2017-01-04 22:17 | MA ---
cc: SAPNA HU DATE 01/04/17 DATE OF 1955 PROCEDURE PERFORMED 1. Left heart catheterization. 2. Selective right and left coronary angiography. 3. Left ventriculogram. 4. Right common femoral artery angiography. INDICATION New-onset heart failure. DESCRIPTION OF PROCEDURE Consent signed. The patient was brought into the cardiac salvage laborer in fasting state. The right groin was prepped and draped in sterile fashion using 1% lidocaine for local anesthesia and a micropuncture kit, a 5-Yakut sheath was inserted into the right common femoral artery. The right common femoral artery angiography was performed to confirm position of the sheath, then selective right and left coronary angiography was performed with a JR-4 and JL-5 diagnostic catheters. Angiography was taken in multiple views. The aortic valve was not able to crossed with a pigtail and a J-wire, This appears to be severe calcification in the LVOT and the aortic valve annulus. Thus, we were able to cross with an AL-2 over a straight Amplatz wire. The Amplatz then was exchanged for a pigtail, this was followed by pressure recordings, left ventriculogram and pullback. The patient tolerated the procedure well without complications. Estimated blood loss less than 30 cc. Total contrast used 90 cc. The right groin access site was closed with a basket closure device. RESULTS LEFT VENTRICLE The left ventricular pressure was 152/21 with an LVEDP of 37. The aortic pressure was 112/83 with a mean of 97. There was a significant gradient upon pullback of more than 40 mmHg consistent with severe aortic stenosis. Left ventriculogram revealed diffusely hypokinetic left ventricle with an estimated ejection fraction of 20-25%. ANGIOGRAPHY 1. Right coronary artery. The right coronary artery is a small vessel, is patent with DINORAH III flow, nonobstructive coronary artery disease. 2. The left main is patent with DINORAH III flow. It measures more than 4 mm. 3. The LAD is a transapical vessel, is giving off one diagonal branch which is patent. The LAD is patent with nonobstructive coronary artery disease. It had a 10% lesion on its proximal segment right at the take off of S1. 4. Left circumflex artery is a dominant vessel. It is patent with DINORAH III flow. No significant obstructive coronary artery disease, is giving off two OM branches which are patent and small. 5. Ramus, the patient has a prominent ramus that bifurcates and goes all the way into the apex. The ramus vessel has minimal luminal irregularities and is patent. CONCLUSION 1. Nonischemic cardiomyopathy with what appears to be severe aortic stenosis. 2. Severe systolic dysfunction. 3. Elevated LVEDP. RECOMMENDATIONS The patient will be admitted to the [facility] for post cath care. He will be managed for his heart failure with IV diuresis, strict in and outputs, low-salt diet and daily weights. He will be started in optimal medical management for heart failure with Coreg, SUMIT inhibitors, Aldactone. He will also get a full 2-D echocardiogram for better interrogate the aortic valve and he will be consulted to CT surgery for AVR. MD FUNMILAYO Duarte/DEJA /7:47 PM /9:49 PM NATIVIDAD
[2017-01-05] VITALS (26 sets, daily range): BP systolic 110–126; BP diastolic 80–96; PULSE 82–104; RESP 18; TEMP 97.7–98.7; O2SAT 96–100
[2017-01-05] MEDS: POTASSIUM CHLORIDE 20 MEQ CONTROLLED RELEASE TAB PO SCH (07:34)
[2017-01-05] MEDS: LISINOPRIL 10 MG TAB PO SCH (07:35)
[2017-01-05] MEDS: SODIUM CHLORIDE 0.9% FLUSH 10 ML FLUSH IV FLUSH SCH ×2 (07:35→20:39)
[2017-01-05] MEDS: ASPIRIN 81 MG CHEW TAB CHEW SCH (07:35)
[2017-01-05] MEDS: FUROSEMIDE 40 MG/4 ML VIAL IVP SCH ×2 (07:35→17:19)
[2017-01-05 08:17] LABS: BICARBONATE 28.9 MEQ/L (21.0-32.0)
[2017-01-05 08:28] LABS: HDL CHOLESTEROL 50.9 MG/DL (40.0-60.0)
--- NOTE | 2017-01-05 09:13 | EKG ---
Date Performed: 01/04/2017 Time Performed: 10:44:50 PTAGE: 61 years EKG: SINUS TACHYCARDIA POSSIBLE LEFT ATRIAL ENLARGEMENT ST DEVIATION AND MODERATE T-WAVE ABNORMA LITY, CONSIDER LATERAL ISCHEMIA ABNORMAL ECG NO PREVIOUS TRACING DOCTOR: Abdelrahman Rader Interpretating Date/Time 01/05/2017 09:13:00
--- NOTE | 2017-01-05 09:16 | EKG ---
Date Performed: 01/05/2017 Time Performed: 06:22:22 PTAGE: 61 years EKG: Sinus rhythm Possible left atrial abnormality Left ventricular hypertrophy Extensive ST-T changes may be due to h ypertrophy and/or ischemia Abnormal ECG PREVIOUS TRACING : 01/04/2017 18.32 Compared to prior tracing no significant change DOCTOR: Abdelrahman Rader Interpretating Date/Time 01/05/2017 09:15:48
--- NOTE | 2017-01-05 09:16 | EKG ---
Date Performed: 01/04/2017 Time Performed: 18:32:25 PTAGE: 61 years EKG: Sinus rhythm LEFT ATRIAL ENLARGEMENT LEFT VENTRICULAR HYPERTROPHY AND ST-T CHANGE ABNORMAL ECG Compared to prior tracing no significant change PREVIOUS TRACING : 01/04/2017 10.44 DOCTOR: Abdelrahman Rader Interpretating Date/Time 01/05/2017 09:15:51
--- NOTE | 2017-01-05 10:35 | HHI.PR ---
Subjective Remarks Follow-up CHF. The patient denies chest pain. Shortness of breath is improving. He also believes that his lower extremity swelling is improving. Had cardiac catheterization yesterday evening. Objective Vitals Vital Signs Date Time Temp Pulse Resp B/P Pulse Ox O2 Delivery O2 Flow Rate FiO2 01/05/17 09:00 95 01/05/17 08:00 99 01/05/17 07:00 97.7 82 18 126/96 97 01/05/17 07:00 100 01/05/17 06:06 99 01/05/17 05:00 100 01/05/17 04:00 100 01/05/17 03:00 97.9 103 18 110/80 96 01/05/17 03:00 92 01/05/17 02:00 96 01/05/17 01:00 92 01/05/17 00:00 92 01/04/17 23:00 98.0 98 18 110/84 99 01/04/17 23:00 94 01/04/17 22:24 100 01/04/17 22:00 84 01/04/17 20:17 100 Room Air 01/04/17 10:55 100 Room Air 01/04/17 10:55 100 Room Air 01/04/17 10:50 97.9 108 20 134/106 100 Room Air 01/04/17 10:46 97.9 112 22 134/106 100 01/04/17 10:42 97.5 190 19 131/100 95 I/O 01/04/17 01/04/17 01/04/17 01/05/17 01/05/17 01/05/17 07:00 15:00 23:00 07:00 15:00 23:00 Intake Total 800 ml Output Total 3100 ml 300 ml Balance -3100 ml 500 ml Intake Oral 800 ml Output Urine Total 3100 ml 300 ml # Voids 4 2 Result Diagram: 01/04/17 1055 01/05/17 0656 Imaging Last Impressions Lower Extremity Ultrasound 01/04/17 104 Signed Impressions: Service Date/Time: December 11:16 - CONCLUSION: No evidence of deep venous thrombosis within the lower extremities. Heri Patino MD Chest X-Ray 01/04/17 1047 Signed Impressions: Service Date/Time: December 11:08 - CONCLUSION: 1. Minimal patchiness within the medial aspect of the right lung base consistent with atelectasis and/or mild infiltrate. Clinical correlation is recommended. 2. Cardiomegaly. Heri Patino MD CT Angiography 01/04/17 1047 Signed Impressions: Service Date/Time: December 13:12 - CONCLUSION: 1. No evidence of pulmonary embolism. 2. Kmly-di-viowukza bilateral pleural effusions right greater than left. 3. No pulmonary edema. Andrew French MD Objective Remarks General: No acute distress. Heart: Regular rate and rhythm. 2/6 systolic murmur. Lungs: Clear to auscultation bilaterally. No wheezes, rales, or rhonchi. Breathing is nonlabored. Abdomen: Soft, nontender, nondistended. Extremities: 1+ bilateral lower extremity edema. Psych: Alert and oriented. Procedures 01/04/17 cardiac catheterization Urinary Catheter: No Vascular Central Line Catheter: No A/P Problem List: (1) Acute systolic (congestive) heart failure ICD Code: I50.21 Status: Acute (2) Aortic stenosis ICD Code: I35.0 Status: Acute (3) Cardiomyopathy ICD Code: I42.9 Status: Acute Assessment and Plan 1. Acute systolic congestive heart failure, cardiomyopathy: Appreciate cardiology recommendations. Continue diuresis. Strict intake/output. Heart healthy diet. Check 2-D echocardiogram. Aspirin 81 mg daily. Monitor on telemetry. Status post cardiac catheterization, which showed aortic stenosis and cardiomyopathy with ejection fraction of 10-15%. 2. Alcohol abuse: Patient was counseled. [place] protocol. Alcohol withdrawal precautions. 3. Cocaine abuse: Patient was counseled. States that his most recent use was 1 month ago. Urine drug screen is negative. 4. Aortic stenosis: Cardiothoracic surgery consult. Discussed with Dr. Szymanski. 5. DVT prophylaxis: Heparin. Sukumar Locke MD Jan 05, 2017 10:35
[2017-01-05] MEDS ORDERED: LORazepam 2 MG TAB PO PRN (10:45)
[2017-01-05] MEDS ORDERED: FLUMAZENIL 0.5 MG/5 ML VIAL IV PUSH PRN (10:45)
[2017-01-05] MEDS ORDERED: LORazepam 2 MG/ML VIAL IV PUSH PRN ×4 (10:45)
[2017-01-05] MEDS ORDERED: LORazepam 1 MG TAB PO PRN (10:45)
--- NOTE | 2017-01-05 12:11 | PD.CARD.PN ---
Subjective Subjective Remarks no CV complaints no overnight events Objective Medications Current Medications Medications (Trade) Dose Ordered Sig/Gian Route Start Time Stop Time Status Last Admin (NS Flush) 2 ml UNSCH PRN IVF 01/04/17 11:00 (NS Flush) 2 ml BID IV FLUSH 01/04/17 21:00 01/05/17 07:35 (Lasix Inj) 40 mg BID@09,18 IVP 01/05/17 09:00 01/05/17 07:35 (KCl) 20 meq DAILY PO 01/05/17 09:00 01/05/17 07:34 (Aspirin Chew) 81 mg DAILY CHEW 01/05/17 09:00 01/05/17 07:35 (Prinivil) 10 mg DAILY PO 01/05/17 09:00 01/05/17 07:35 (Atropine Inj) 0.5 mg UNSCH PRN IV 01/04/17 20:00 (Zofran Inj) 4 mg Q4H PRN IV 01/04/17 20:00 (Romazicon Inj) 0.2 mg Q1M PRN IV PUSH 01/05/17 10:45 (Ativan) 1 mg Q4H PRN PO 01/05/17 10:45 (Ativan Inj) 1 mg Q4H PRN IV PUSH 01/05/17 10:45 (Ativan) 2 mg Q2H PRN PO 01/05/17 10:45 (Ativan Inj) 2 mg Q2H PRN IV PUSH 01/05/17 10:45 (Ativan Inj) 2 mg Q1H PRN IV PUSH 01/05/17 10:45 (Ativan Inj) 2 mg Q15M PRN IV PUSH 01/05/17 10:45 Vital Signs / I&O Vital Signs Date Time Temp Pulse Resp B/P Pulse Ox O2 Delivery O2 Flow Rate FiO2 01/05/17 11:04 104 01/05/17 10:34 94 01/05/17 09:00 95 01/05/17 08:00 99 01/05/17 07:00 97.7 82 18 126/96 97 01/05/17 07:00 100 01/05/17 06:06 99 01/05/17 05:00 100 01/05/17 04:00 100 01/05/17 03:00 97.9 103 18 110/80 96 01/05/17 03:00 92 01/05/17 02:00 96 01/05/17 01:00 92 01/05/17 00:00 92 01/04/17 23:00 98.0 98 18 110/84 99 01/04/17 23:00 94 01/04/17 22:24 100 01/04/17 22:00 84 01/04/17 20:17 100 Room Air I/O 01/04/17 01/04/17 01/04/17 01/05/17 01/05/17 01/05/17 07:00 15:00 23:00 07:00 15:00 23:00 Intake Total 800 ml Output Total 3100 ml 300 ml Balance -3100 ml 500 ml Intake Oral 800 ml Output Urine Total 3100 ml 300 ml # Voids 4 2 Physical Exam GENERAL: Well-nourished, well-developed patient. SKIN: Warm and dry. HEAD: Normocephalic. EYES: No scleral icterus. No injection or drainage. NECK: Supple, trachea midline. No JVD or lymphadenopathy. CARDIOVASCULAR: Regular rate and rhythm ++murmurs, gallops, or rubs. RESPIRATORY: Breath sounds equal bilaterally. No accessory muscle use. GASTROINTESTINAL: Abdomen soft, non-tender, nondistended. EXTREMITIES: No cyanosis, or edema. NEUROLOGICAL: Awake, alert, and oriented x 3. Non-focal. Laboratory Laboratory Tests Test 01/04/17 01/04/17 01/05/17 17:40 23:04 06:56 Total Creatine Kinase 74 U/L 60 U/L Troponin I 0.12 NG/ML 0.24 NG/ML Urine Opiates Screen NEG Urine Barbiturates Screen NEG Urine Amphetamines Screen NEG Urine Benzodiazepines Screen NEG Urine Cocaine Screen NEG Urine Cannabinoids Screen NEG Sodium Level 139 MEQ/L Potassium Level 4.0 MEQ/L Chloride Level 106 MEQ/L Carbon Dioxide Level 28.9 MEQ/L Anion Gap 4 MEQ/L Blood Urea Nitrogen 22 MG/DL Creatinine 1.11 MG/DL Estimat Glomerular Filtration 67 ML/MIN Rate Random Glucose 80 MG/DL Calcium Level 8.3 MG/DL Triglycerides Level 81 MG/DL Cholesterol Level 128 MG/DL LDL Cholesterol 61 MG/DL HDL Cholesterol 50.9 MG/DL Cholesterol/HDL Ratio 2.51 RATIO Thyroid Stimulating Hormone 3.060 uIU/ML 3rd Gen Imaging Last Impressions Lower Extremity Ultrasound 01/04/171046 Signed Impressions: Service Date/Time: December 11:16 - CONCLUSION: No evidence of deep venous thrombosis within the lower extremities. Heri Patino MD Chest X-Ray 01/04/171046 Signed Impressions: Service Date/Time: , January 04, 2017 11:08 - CONCLUSION: 1. Minimal patchiness within the medial aspect of the right lung base consistent with atelectasis and/or mild infiltrate. Clinical correlation is recommended. 2. Cardiomegaly. Heri Patino MD CT Angiography [id number]/04/171046 Signed Impressions: Service Date/Time: December 13:12 - CONCLUSION: 1. No evidence of pulmonary embolism. 2. Ntwb-xh-axqajefu bilateral pleural effusions right greater than left. 3. No pulmonary edema. Andrew French MD Assessment and Plan Problem List: (1) Heart failure Assessment and Plan: 61 y/o with nonischemic cardiomyopathy, calcific aortic valve likely severe with symptoms of syncope. Awaiting echo and CT surgery evaluation. Recommendations: - Medical management (2) Tachycardia Problem Qualifiers (1) Heart failure: Moe Ruggiero MD Jan 05, 2017 12:11
[2017-01-05] MEDS ORDERED: DOBUTamine PREMIX DRIP 250 ML ONE (13:56)
[2017-01-05] MEDS ORDERED: METOPROLOL TARTRATE 5 MG/5 ML VIAL ONE (15:14)
--- NOTE | 2017-01-05 20:08 | ECHRPT ---
Indication: CONCLUSIONS The left ventricular systolic function is severely reduced with an estimated ejection fraction in th e range of 20-25%. There is global left ventricular dysfunction. The right ventricular systoilc function is mildly decreased. Mild mitral valve regurgitation. Severe aortic valve stenosis (Mean grad 37, Peak grad 68, ASHLYN 0.42). Trace aortic valve regurgitation. There is mild tricuspid valve regurgitation. BP: 134 / 106 HR: 108 Rhythm: Technical Quality:Good FINDINGS LEFT VENTRICLE Normal left ventricular size. Wall thickness is measured at the upper limits of normal. The left ventricular systolic function is severely reduced with an estimated ejection fraction in th e range of 20-25%. There is global left ventricular dysfunction. RIGHT VENTRICLE The right ventricular systoilc function is mildly decreased. The right ventricle is mildly dilated. LEFT ATRIUM The left atrial size is normal. RIGHT ATRIUM The right atrial size is mildly dilated. ATRIAL SEPTUM The interatrial septum not well visualized. AORTA The aortic root and proximal ascending aorta are normal in size on limited imaging. MITRAL VALVE Mild thickening of the mitral valve leaflets. Mild mitral annular calcification. Mild mitral valve regurgitation. No mitral valve stenosis (MVA calculated at 1.15, but mean gradient of 1) AORTIC VALVE Severe aortic valve stenosis (Mean grad 37, Peak grad 68, ASHLYN 0.42) Severe thickening of the aortic valve leaflets. Trace aortic valve regurgitation. TRICUSPID VALVE There is mild tricuspid valve regurgitation. There is estimated moderate pulmonary hypertension present (58 mmHg). PULMONARY VALVE The pulmonary valve is not well visualized. VESSELS The inferior vena cava is normal in size. PERICARDIUM No pericardial effusion. Terry Barnes DO (Electronically Signed) Final Date:05 January 2017 20:07
--- NOTE | 2017-01-05 20:32 | RADRPT ---
EXAM DATE/TIME: 01/05/2017 19:12 [facility] COMPARISON: No previous studies available for comparison. INDICATIONS : Pre operation AVR. MEDICAL HISTORY : Bilateral leg swelling. SURGICAL HISTORY : None. ENCOUNTER: Initial ACUITY: 1 day PAIN SCORE: 0/10 LOCATION: Bilateral neck PEAK SYSTOLIC VELOCITIES (cm/sec): ICA/CCA RATIO: Right: 1.2 Left: 1.0 ICA: Right: 61 Left: 50 CCA: Right: 61 Left: 77 ECA: Right: 64 Left: 72 VERTEBRAL: Right: 25 antegrade Left: 19 antegrade Elevated flow velocities and ICA/CCA ratios have been found to correlate with increased degrees of vessel stenosis, calculated as percentage of diameter relative to a normal segment of distal ICA/CCA FINDINGS: RIGHT CAROTID: No significant stenosis is visualized. The waveforms are within normal limits. LEFT CAROTID: No significant stenosis is visualized. The waveforms are within normal limits. VERTEBRAL ARTERIES: Antegrade flow is seen in both vertebral arteries. MISCELLANEOUS: None. CONCLUSION: No significant plaque or stenosis of either carotid. Willie Joseph MD on January 05, 2017 at 20:30 Board Certified Radiologist. This report was verified electronically.
[2017-01-06] VITALS (24 sets, daily range): BP systolic 96–126; BP diastolic 76–96; PULSE 87–105; RESP 17–20; TEMP 97.7–98.3; O2SAT 92–100
[2017-01-06] MEDS: LISINOPRIL 10 MG TAB PO SCH (08:20)
[2017-01-06] MEDS: POTASSIUM CHLORIDE 20 MEQ CONTROLLED RELEASE TAB PO SCH (08:20)
[2017-01-06] MEDS: FUROSEMIDE 40 MG/4 ML VIAL IVP SCH ×2 (08:20→17:49)
[2017-01-06] MEDS: SODIUM CHLORIDE 0.9% FLUSH 10 ML FLUSH IV FLUSH SCH ×2 (08:21→21:00)
[2017-01-06] MEDS: ASPIRIN 81 MG CHEW TAB CHEW SCH (08:21)
--- NOTE | 2017-01-06 09:23 | PD.CARD.PN ---
Subjective Subjective Remarks Pt asymptomatic Objective Medications Administered Medications Medications (Trade) Dose Ordered Sig/Gian Route PRN Reason Start Time Stop Time Status Last Admin Dose Admin Sodium Chloride (NS Flush) 2 ml BID IV FLUSH 01/04/17 21:00 01/06/17 08:21 Furosemide (Lasix Inj) 40 mg BID@,18 IVP 01/05/17 09:00 01/06/17 08:20 Potassium Chloride (KCl) 20 meq DAILY PO 01/05/17 09:00 01/06/17 08:20 Aspirin (Aspirin Chew) 81 mg DAILY CHEW 01/05/17 09:00 01/06/17 08:21 Lisinopril (Prinivil) 10 mg DAILY PO 01/05/17 09:00 01/06/17 08:20 Vital Signs / I&O Vital Signs Date Time Temp Pulse Resp B/P Pulse Ox O2 Delivery O2 Flow Rate FiO2 01/06/17 08:00 97.7 100 17 126/96 100 01/06/17 07:00 105 01/06/17 06:00 87 01/06/17 05:00 93 01/06/17 04:00 96 01/06/17 04:00 98.0 96 18 124/93 96 01/06/17 03:00 92 01/06/17 02:00 90 01/06/17 01:00 89 01/06/17 00:00 98.3 92 18 122/91 97 01/06/17 00:00 92 01/05/17 23:00 88 01/05/17 22:00 90 01/05/17 21:00 93 01/05/17 20:00 92 01/05/17 20:00 98.1 92 18 110/84 98 01/05/17 18:18 83 01/05/17 17:41 98 01/05/17 16:11 96 01/05/17 15:34 100 01/05/17 15:33 98.7 97 18 119/91 100 01/05/17 14:03 86 01/05/17 13:39 99 01/05/17 13:14 95 01/05/17 12:20 96 01/05/17 12:17 98.2 95 18 111/88 98 01/05/17 11:04 104 01/05/17 10:34 94 I/O 801/05/17 01/05/17 01/06/17 01/06/17 01/06/17 07:00 15:00 23:00 07:00 15:00 23:00 Intake Total 800 ml 450 ml 610 ml Output Total 300 ml 2900 ml 1500 ml Balance 500 ml -2450 ml -890 ml Intake Oral 800 ml 450 ml 600 ml IV Total 10 ml Output Urine Total 300 ml 2900 ml 1500 ml # Voids 2 # Bowel Movements 0 0 Physical Exam GENERAL: This is a well-nourished, well-developed patient, in no apparent distress. CARDIOVASCULAR: Regular rate and rhythm 3/6 patel RESPIRATORY: Clear to auscultation. Breath sounds equal bilaterally. No wheezes , rales, or rhonchi. GASTROINTESTINAL: Abdomen soft, non-tender, nondistended. Normal active bowel sounds MUSCULOSKELETAL: Extremities without clubbing, cyanosis, or edema. NEURO: Alert & Oriented x4 to person, place, time, situation. Moves all ext x4 Imaging Last Impressions Carotid Artery Ultrasound 01/05/17 0000 Signed Impressions: Service Date/Time: Thursday, January 05, 2017 19:12 - CONCLUSION: No significant plaque or stenosis of either carotid. Willie Joseph MD Lower Extremity Ultrasound 01/04/171046 Signed Impressions: Service Date/Time: December 11:16 - CONCLUSION: No evidence of deep venous thrombosis within the lower extremities. Heri Patino MD Chest X-Ray 01/04/171046 Signed Impressions: Service Date/Time: December 11:08 - CONCLUSION: 1. Minimal patchiness within the medial aspect of the right lung base consistent with atelectasis and/or mild infiltrate. Clinical correlation is recommended. 2. Cardiomegaly. Heri Patino MD CT Angiography 01/04/171046 Signed Impressions: Service Date/Time: December 13:12 - CONCLUSION: 1. No evidence of pulmonary embolism. 2. Gcho-al-sncyuzzd bilateral pleural effusions right greater than left. 3. No pulmonary edema. Andrew French MD Assessment and Plan Problem List: (1) Heart failure Assessment and Plan: 61 y/o with nonischemic cardiomyopathy, calcific aortic valve likely severe with symptoms of syncope. Awaiting echo and CT surgery evaluation. Recommendations: - Medical management (2) Tachycardia Problem Qualifiers (1) Heart failure: Js Zelaya MD Jan 06, 2017 09:23
[2017-01-06 10:04] LABS: BICARBONATE 31.6 MEQ/L (21.0-32.0); POTASSIUM 3.8 MEQ/L (3.5-5.1)
--- NOTE | 2017-01-06 13:28 | HHI.PR ---
Subjective Remarks No acute events overnight. Afebrile, vital signs stable. Patient with no complaints this morning. States his leg swelling is significantly improved. Denies shortness of breath or chest pain at rest. Does endorse shortness of breath on ambulation. Objective Vitals Vital Signs Date Time Temp Pulse Resp B/P Pulse Ox O2 Delivery O2 Flow Rate FiO2 01/06/17 13:00 103 01/06/17 12:00 96 01/06/17 11:00 98 01/06/17 11:00 98.0 97 17 96/76 97 01/06/17 10:00 93 01/06/17 09:00 92 01/06/17 08:30 92 21 01/06/17 08:00 97.7 100 17 126/96 100 01/06/17 08:00 92 01/06/17 07:00 105 01/06/17 06:00 87 01/06/17 05:00 93 01/06/17 04:00 96 01/06/17 04:00 98.0 96 18 124/93 96 01/06/17 03:00 92 01/06/17 02:00 90 01/06/17 01:00 89 01/06/17 00:00 98.3 92 18 122/91 97 01/06/17 00:00 92 01/05/17 23:00 88 01/05/17 22:00 90 01/05/17 21:00 93 01/05/17 20:00 92 01/05/17 20:00 98.1 92 18 110/84 98 01/05/17 18:18 83 01/05/17 17:41 98 01/05/17 16:11 96 01/05/17 15:34 100 01/05/17 15:33 98.7 97 18 119/91 100 01/05/17 14:03 86 01/05/17 13:39 99 I/O 01/05/17 01/05/17 01/05/17 01/06/17 01/06/17 01/06/17 07:00 15:00 23:00 07:00 15:00 23:00 Intake Total 800 ml 450 ml 610 ml Output Total 300 ml 2900 ml 1500 ml Balance 500 ml -2450 ml -890 ml Intake Oral 800 ml 450 ml 600 ml IV Total 10 ml Output Urine Total 300 ml 2900 ml 1500 ml # Voids 2 # Bowel Movements 0 0 Result Diagram: 01/04/17 1055 01/06/17 0901 Objective Remarks General: No acute distress. Heart: Regular rate and rhythm. 2/6 systolic murmur. Lungs: Clear to auscultation bilaterally. No wheezes, rales, or rhonchi. Breathing is nonlabored. Abdomen: Soft, nontender, nondistended. Extremities: 1+ bilateral lower extremity edema. Psych: Alert and oriented. Procedures 01/04/17 cardiac catheterization A/P Problem List: (1) Acute systolic (congestive) heart failure ICD Code: I50.21 Status: Acute (2) Aortic stenosis ICD Code: I35.0 Status: Acute (3) Cardiomyopathy ICD Code: I42.9 Status: Acute Assessment and Plan 1. Acute systolic congestive heart failure, cardiomyopathy: Appreciate cardiology recommendations for medical management at this time. Continue diuresis. Strict intake/output. Heart healthy diet. ECHO significant for severe aortic stenosis and ejection fraction of 2025 percent. Aspirin 81 mg daily. Monitor on telemetry. Status post cardiac catheterization, which showed aortic stenosis and cardiomyopathy with ejection fraction of 10-15%. CT surgery consulted. 2. Alcohol abuse: Patient was counseled. CIWA protocol. Alcohol withdrawal precautions. 3. Cocaine abuse: Patient was counseled. States that his most recent use was 1 month ago. Urine drug screen is negative. 4. Aortic stenosis: Cardiothoracic surgery consult. 5. DVT prophylaxis: Heparin. Discharge Planning Pending CT surgery recommendations Esme Barnett MD R3 Jan 06, 2017 13:28
[2017-01-06] MEDS ORDERED: EPINEPHrine HCL (1:10,000) 1 MG/10 ML SYRINGE ONE (16:57)
[2017-01-06] MEDS ORDERED: ATROPINE SULFATE 1 MG/10 ML SYRINGE ONE (16:57)
[2017-01-06] MEDS ORDERED: IOHEXOL 350 MG/ML 10 ML VIAL (for RAD DIAG) IV ONE (18:51)
--- NOTE | 2017-01-06 20:23 | RADRPT ---
EXAM DATE/TIME: 01/06/2017 17:28 [facility] COMPARISON: No previous studies available for comparison. INDICATIONS : Chest pain. IV CONTRAST: 100 cc Omnipaque 350 (iohexol) IV RADIATION DOSE: 9.33 CTDIvol (mGy) MEDICAL HISTORY : None SURGICAL HISTORY : Umbilical hernia repair. ENCOUNTER: Initial ACUITY: 1 day PAIN SCALE: 0/10 LOCATION: chest TECHNIQUE: Volumetric scanning was performed using a multi-row detector CT scanner. The data was post processed with a variety of visualization algorithms including full volume maximum intensity projection, multi -planar sliding thin slab reformation, curved planar reformation, and surface rendering techniques. Using automated exposure control and adjustment of the mA and/or kV according to patient size, radiat ion dose was kept as low as reasonably achievable to obtain optimal diagnostic quality images. DIC OM format image data is available electronically for review and comparison. FINDINGS: CARDIAC: The coronary system is left dominant. The RCA is patent without any calcifications in left main is al so patent. There is mild to moderate calcifications involving the diagonal branch and mild to moderat e stenosis is present. The circumflex appears intact. There is no pericardial effusion AORTIC ROOT/VALVE: Aortic cusps and anulus demonstrate dense calcifications. The aortic root measures 3.2 x 3.1 cm in AP and transverse diameters. Mid thoracic ascending aorta measures 3.9 x 3.7 cm in AP and transverse diameters with no calcif ications. The distance from the annular base 2 left coronary takeoff measures 1.5 cm and 1.7 cm the r ight coronary takeoff. THORACIC AORTA: Origin of the great vessels is normal. No evidence of aneurysm, mural thrombus, dissection, mural ca lcification, or stenosis. ABDOMINAL AORTA: No evidence of aneurysm, mural thrombus, dissection, mural calcification, or stenosis. CELIAC ARTERY: Celiac artery is widely patent. SMA: Superior mesenteric artery is widely patent. RIGHT RENAL ARTERY: Right renal artery is widely patent. LEFT RENAL ARTERY: Left renal artery is widely patent. RIGHT COMMON ILIAC: No evidence of aneurysm, mural thrombus, dissection, mural calcification, or stenosis. The common fe moral measures 1 cm. LEFT COMMON ILIAC: No evidence of aneurysm, mural thrombus, dissection, mural calcification, or stenosis. The common fe moral measures 1 cm. THORAX: Small bilateral pleural effusions are present with slight right lung base compressive collapse. ABDOMEN: The liver, spleen, pancreas, kidneys, adrenals are unremarkable. PELVIS: There are scattered diverticuli mainly in the sigmoid colon without definite signs of diverticulitis. CONCLUSION: Small bilateral pleural effusions with dense calcifications of aortic valve and measurements as above . Jim Gunderson MD on January 06, 2017 at 20:13 Board Certified Radiologist. This report was verified electronically.
[2017-01-07] VITALS (17 sets, daily range): BP systolic 91–115; BP diastolic 66–87; PULSE 74–99; RESP 18–20; TEMP 97.2–98.4; O2SAT 96–97
[2017-01-07] MEDS: FUROSEMIDE 40 MG/4 ML VIAL IVP SCH ×2 (09:00→18:36)
--- NOTE | 2017-01-07 12:56 | HHI.PR ---
Subjective Remarks No acute events overnight. Afebrile, vital signs stable. Patient with no complaints this morning. Denies chest pain/shortness of breath. Objective Vitals Vital Signs Date Time Temp Pulse Resp B/P (MAP) Pulse Ox O2 Delivery O2 Flow Rate FiO2 01/07/17 06:00 90 01/07/17 05:00 93 01/07/17 04:00 92 01/07/17 04:00 98.0 92 20 114/87 (96) 96 01/07/17 03:00 93 01/07/17 02:00 88 01/07/17 01:00 86 01/07/17 00:00 96 01/07/17 00:00 98.1 96 18 105/80 (88) 97 01/06/17 23:00 93 01/06/17 22:09 96 01/06/17 22:00 90 01/06/17 21:00 88 01/06/17 20:00 98.2 94 20 117/82 (94) 96 01/06/17 20:00 94 01/06/17 18:00 103 01/06/17 16:00 101 01/06/17 15:00 97 01/06/17 15:00 98.0 97 17 112/83 (93) 95 01/06/17 14:13 100 01/06/17 13:00 103 I/O 01/06/17 01/06/17 01/06/17 01/07/17 01/07/17 01/07/17 07:00 15:00 23:00 07:00 15:00 23:00 Intake Total 610 ml 310 ml 471 ml Output Total 1500 ml 1900 ml 2000 ml Balance -890 ml -1590 ml -1529 ml Intake Oral 600 ml 310 ml 461 ml IV Total 10 ml 10 ml Output Urine Total 1500 ml 1900 ml 2000 ml # Bowel Movements 0 0 Result Diagram: 01/04/17 1055 01/06/17 0901 Objective Remarks General: No acute distress. Heart: Regular rate and rhythm. 2/6 systolic murmur. Lungs: Clear to auscultation bilaterally. No wheezes, rales, or rhonchi. Breathing is nonlabored. Abdomen: Soft, nontender, nondistended. Extremities: 1+ bilateral lower extremity edema. Psych: Alert and oriented. Procedures 01/04/17 cardiac catheterization A/P Problem List: (1) Acute systolic (congestive) heart failure ICD Code: I50.21 - Acute systolic (congestive) heart failure Status: Acute (2) Aortic stenosis ICD Code: I35.0 - Nonrheumatic aortic (valve) stenosis Status: Acute (3) Cardiomyopathy ICD Code: I42.9 - Cardiomyopathy, unspecified Status: Acute Assessment and Plan 1. Acute systolic congestive heart failure, cardiomyopathy: Appreciate cardiology recommendations for medical management at this time. Continue diuresis. Strict intake/output. Heart healthy diet. ECHO significant for severe aortic stenosis and ejection fraction of 2024 percent. Aspirin 81 mg daily. Monitor on telemetry. Status post cardiac catheterization, which showed aortic stenosis and cardiomyopathy with ejection fraction of 10-15%. CT surgery consulted. 2. Alcohol abuse: Patient was counseled. [place] protocol. Alcohol withdrawal precautions. 3. Cocaine abuse: Patient was counseled. States that his most recent use was 1 month ago. Urine drug screen is negative. 4. Aortic stenosis: Cardiothoracic surgery consult. 5. DVT prophylaxis: Heparin. Discharge Planning Pending CT surgery recommendations Esme Barnett MD R3 Jan 07, 2017 12:56
[2017-01-07] MEDS: SODIUM CHLORIDE 0.9% FLUSH 10 ML FLUSH IV FLUSH SCH (21:00)
[2017-01-07] MEDS: CARVEDILOL 3.125 MG TAB PO SCH (21:24)
[2017-01-08] VITALS (26 sets, daily range): BP systolic 91–105; BP diastolic 64–82; PULSE 79–103; RESP 16–18; TEMP 97.4–98.4; O2SAT 96–99
--- NOTE | 2017-01-08 08:04 | MB ---
cc: JENNY MINA MD DATE OF CONSULTATION 01/05/17 DATE OF 1955 HISTORY OF PRESENT ILLNESS A 61-year-old male who presented to the emergency room with shortness of breath, palpitations. Apparently, he started having some symptoms of lightheadedness, fatigue approximately 3-4 weeks ago. 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 He describes as some episodes of some previous presyncopal episodes. He just recently had an episode where he had a syncopal episode and apparently woke up after the fire department arrived. He fell back, hit his head, scraped both of his knees. He was working outside with his linen tech which led him to just come into the emergency room department. On arrival his heart rate was in the 180s. Blood pressure was 130/100. Showed some T-wave inversion on EKG in the lateral leads. Sinus tachycardia, concern for some lateral ischemia. Troponins were 0.05, 0.12, 0.24. The patient was felt to be ruled in for a non-STEMI. He underwent cardiac cath by Dr. Villafuerte which showed a significant gradient upon pullback of more than 40 mmHg consistent with severe aortic stenosis. The LV gram showed diffuse hypokinesis of the left ventricle with an EF of 10-15%. The patient had nonobstructive disease in the RCA with minimal stenosis in the proximal LAD. No significant disease in the left circ and also the ramus. At this time full 2-D echo is pending. We were consulted to evaluate for open aortic valve replacement versus candidate for transcatheter aortic valve replacement. Tentative STS risk score is 2.13 but will need to be redone once the full 2-D echo is available. Risk of morbidity/mortality 19, frailty score spending. PAST MEDICAL HISTORY He has not seen a physician or medical care since 1993. Has no past medical history. PAST SURGICAL HISTORY Surgeries include tonsillectomy, right inguinal hernia repair. ALLERGIES No known allergies. MEDICATIONS Takes no home medications. FAMILY HISTORY Mother alive at 85 with a pacemaker and hypertension. Father at age 72 from alcohol and tobacco abuse. He has one living brother that has prostate cancer. SOCIAL HISTORY The patient , has two children. Prior illicit drug use. quit cocaine 1 year ago, quit smoking marijuana 2 years ago. Quit drinking spirits or vodka four years ago but will still drink three beers per day. No tobacco. REVIEW OF SYSTEMS g GENERAL: No night sweats, fever, heat or cold intolerance. SKIN: No psoriasis, itching or hives. HEENT: No blurred vision, hearing loss. RESPIRATORY: Positive for shortness of breath, paroxysmal nocturnal dyspnea, lower extremity edema. CARDIOVASCULAR: No chest pain. Positive for recent syncope. GASTROINTESTINAL: No diarrhea, vomiting. GENITOURINARY: No burning frequency, urgency SUPERINTENDENT RECREATION: No history of TIA, CVA, seizure disorder. ENDOCRINOLOGY: No history of diabetes and/or hypothyroidism. PHYSICAL EXAMINATION VITAL SIGNS: On exam blood pressure 130/90, heart rate of 95-100, O2 sat 100% on room air. GENERAL: Patient is awake, alert, no acute distress. The patient does wear upper and lower dentures. HEENT: Head is normocephalic, atraumatic. Pupils equal and reactive. Oral mucosa pink, moist. NECK: Supple. No JVD. HEART: Sounds S1-S2, regular rate and rhythm. Grade 2-3/6 systolic murmur best noted in the right sternal border. LUNGS: Diminished in the base, otherwise, clear to auscultation. EXTREMITIES: Reveal trace edema with good distal pulses. LABORATORY FINDINGS Shows hemoglobin 13, hematocrit of 43, white cell count 7.2, platelet count 298, sodium 139, potassium 4.0, BUN of 22, creatinine 1.1, glucose of 80, troponin as above, the BNP initially was 2400, TSH of 3, INR 1.1. Urine drug screen negative. RADIOLOGICAL EXAMS Ultrasound of the lower extremities showed no evidence of DVT bilaterally. Chest x-ray showed some minimal patchiness in the medial aspect of the right lung base. CTA of the chest no evidence of pulmonary emboli, mild to moderate bilateral pleural effusions, the right greater than the left. MEDICATIONS Current medications include: 1. Lasix IV. 2. Aspirin. 3. SUMIT inhibitor. IMPRESSION This is a 61-year-old male with nonischemic cardiomyopathy with EF of 10-15%, severe aortic stenosis by heart catheterization, significant gradient upon pullback of more than 40 mmHg consistent with the severe aortic stenosis. 2-D echo is still pending. TAVR CT pending. Pulmonary function testing pending. Again, initial risk score of 2.12, frailty pending. Again, will need second opinion per cardiovascular surgery if the patient would be a candidate for transcatheter aortic valve replacement. We will need to wait for further testing as above for further evaluation if whether or not the patient is a candidate for open versus TAVR. Dictated by CRISTOBAL Ovalle Jenny GARRETT/DEJA /4:08 PM /7:59 AM
--- NOTE | 2017-01-08 08:05 | HHI.PR ---
Subjective Remarks no complains of chest pains or shortness of breath good po telemetry in SR Objective Vitals Vital Signs Date Time Temp Pulse Resp B/P (MAP) Pulse Ox O2 Delivery O2 Flow Rate FiO2 01/08/17 06:00 79 01/08/17 05:00 82 01/08/17 04:00 80 01/08/17 04:00 98.2 80 18 92/76 (81) 97 01/08/17 03:00 82 01/08/17 02:00 85 01/08/17 01:00 89 01/08/17 00:00 98.4 90 18 94/64 (74) 97 01/08/17 00:00 90 01/07/17 23:00 93 01/07/17 22:00 90 01/07/17 21:00 93 01/07/17 20:00 99 01/07/17 20:00 98.0 99 20 115/74 (88) 96 01/07/17 18:21 79 01/07/17 17:24 78 01/07/17 16:36 99 01/07/17 15:00 94 01/07/17 15:00 97.2 74 18 102/71 (81) 96 01/07/17 11:00 98.4 96 18 91/66 (74) 01/07/17 11:00 96 I/O 01/07/17 01/07/17 01/07/17 01/08/17 01/08/17 01/08/17 07:00 15:00 23:00 07:00 15:00 23:00 Intake Total 471 ml 1000 ml 250 ml Output Total 2000 ml 1500 ml 1500 ml Balance -1529 ml -500 ml -1250 ml Intake Oral 461 ml 1000 ml 240 ml IV Total 10 ml 10 ml Output Urine Total 2000 ml 1500 ml 1500 ml # Bowel Movements 0 1 0 Result Diagram: 01/04/17 1055 01/06/17 0901 Imaging Last Impressions Chest CTA 01/05/17 0000 Signed Impressions: Service Date/Time: Friday, January 06, 2017 17:28 - CONCLUSION: Small bilateral pleural effusions with dense calcifications of aortic valve and measurements as above. Jim Gunderson MD Carotid Artery Ultrasound 01/05/17 0000 Signed Impressions: Service Date/Time: Thursday, January 05, 2017 19:12 - CONCLUSION: No significant plaque or stenosis of either carotid. Willie Joseph MD Lower Extremity Ultrasound 01/04/171046 Signed Impressions: Service Date/Time: December 11:16 - CONCLUSION: No evidence of deep venous thrombosis within the lower extremities. Heri Patino MD Chest X-Ray 01/04/171046 Signed Impressions: Service Date/Time: December 11:08 - CONCLUSION: 1. Minimal patchiness within the medial aspect of the right lung base consistent with atelectasis and/or mild infiltrate. Clinical correlation is recommended. 2. Cardiomegaly. Heri Patino MD CT Angiography 01/04/171046 Signed Impressions: Service Date/Time: December 13:12 - CONCLUSION: 1. No evidence of pulmonary embolism. 2. Lhyp-sz-wcmcbrfc bilateral pleural effusions right greater than left. 3. No pulmonary edema. Andrew French MD Objective Remarks awake and alert oriented x 3- good sats at room air anicteric' no carotid bruit lungs- no rales or wheezes regular rhythm, 3/6 systolic murmur left sternal border abdomen soft, nontender extremiteis no edema, ++ peripheral pulses neuro exam- unremarkable Procedures 01/04/17 cardiac catheterization- non ischemic cardiomypathy, severe LV dysfunction A/P Problem List: (1) Acute systolic (congestive) heart failure ICD Code: I50.21 - Acute systolic (congestive) heart failure Status: Acute (2) Aortic stenosis ICD Code: I35.0 - Nonrheumatic aortic (valve) stenosis Status: Acute (3) Cardiomyopathy ICD Code: I42.9 - Cardiomyopathy, unspecified Status: Acute Assessment and Plan 61 years old male admitted for new onset CHF- clinically improved Acute systolic congestive heart failure, cardiomyopathy secondary to - Severe Aortic stenosis. - non ischemic CMP S/P cardiac catheterization: ECHO significant for severe aortic stenosis and ejection fraction of 5 percent. Cardiology ff- ? candidate for AICD/Life Vest if no plans for surgery Cardiothoracic surgery ff - evaluate for open AVR vs TAVR Strict intake/output. Heart healthy diet. Aspirin 81 mg daily. continue on Coreg. - adjust dose as BP tolerates . consider starting SUMIT if BP stabilizes change to po Lasix 40 mg po bid Alcohol abuse: Patient was counseled. [facility] protocol. patient admits to [employer] in the past- 5 years ago. Now states occasionally drinks beer- 1-2 at the most. no DTs Cocaine abuse: Patient was counseled. States that his most recent use was 1 month ago. Urine drug screen is negative. DVT- ambulate, Increase activity. Lovenox 30 mg SQ daily Problem Qualifiers (1) Aortic stenosis: Qualified Codes: I35.0 - Nonrheumatic aortic (valve) stenosis (2) Cardiomyopathy: Qualified Codes: I42.8 - Other cardiomyopathies Oly Mcelroy MD Jan 08, 2017 08:05
[2017-01-08] MEDS: CARVEDILOL 3.125 MG TAB PO SCH ×2 (09:45→21:00)
[2017-01-08] MEDS: POTASSIUM CHLORIDE 20 MEQ CONTROLLED RELEASE TAB PO SCH (09:46)
[2017-01-08] MEDS: ASPIRIN 81 MG CHEW TAB CHEW SCH (09:46)
[2017-01-08] MEDS: LISINOPRIL 10 MG TAB PO SCH (09:47)
[2017-01-08] MEDS: SODIUM CHLORIDE 0.9% FLUSH 10 ML FLUSH IV FLUSH SCH ×3 (09:49→21:15)
--- NOTE | 2017-01-08 10:19 | PD.CARD.PN ---
Subjective Subjective Remarks no CV complaints Objective Medications Current Medications Medications (Trade) Dose Ordered Sig/Gian Route Start Time Stop Time Status Last Admin (NS Flush) 2 ml UNSCH PRN IVF 01/04/17 11:00 (NS Flush) 2 ml BID IV FLUSH 01/04/17 21:00 01/08/17 09:49 (KCl) 20 meq DAILY PO 01/05/17 09:00 01/08/17 09:46 (Aspirin Chew) 81 mg DAILY CHEW 01/05/17 09:00 01/08/17 09:46 (Prinivil) 10 mg DAILY PO 01/05/17 09:00 01/08/17 09:47 (Atropine Inj) 0.5 mg UNSCH PRN IV 01/04/17 20:00 (Zofran Inj) 4 mg Q4H PRN IV 01/04/17 20:00 (Romazicon Inj) 0.2 mg Q1M PRN IV PUSH 01/05/17 10:45 (Ativan) 1 mg Q4H PRN PO 01/05/17 10:45 01/06/17 22:36 (Ativan Inj) 1 mg Q4H PRN IV PUSH 01/05/17 10:45 (Ativan) 2 mg Q2H PRN PO 01/05/17 10:45 01/07/17 21:25 (Ativan Inj) 2 mg Q2H PRN IV PUSH 01/05/17 10:45 (Ativan Inj) 2 mg Q1H PRN IV PUSH 01/05/17 10:45 (Ativan Inj) 2 mg Q15M PRN IV PUSH 01/05/17 10:45 (Coreg) 3.125 mg BID PO 01/07/17 21:00 01/08/17 09:45 (Lasix) 40 mg BID@,18 PO 01/08/17 09:00 (Lovenox Inj) 40 mg Q24H SQ 01/08/17 12:00 Vital Signs / I&O Vital Signs Date Time Temp Pulse Resp B/P (MAP) Pulse Ox O2 Delivery O2 Flow Rate FiO2 01/08/17 09:25 98 01/08/17 08:31 97.4 87 16 105/82 (90) 98 01/08/17 08:31 96 01/08/17 06:00 79 01/08/17 05:00 82 01/08/17 04:00 80 01/08/17 04:00 98.2 80 18 92/76 (81) 97 01/08/17 03:00 82 01/08/17 02:00 85 01/08/17 01:00 89 01/08/17 00:00 98.4 90 18 94/64 (74) 97 01/08/17 00:00 90 01/07/17 23:00 93 01/07/17 22:00 90 01/07/17 21:00 93 01/07/17 20:00 99 01/07/17 20:00 98.0 99 20 115/74 (88) 96 01/07/17 18:21 79 01/07/17 17:24 78 01/07/17 16:36 99 01/07/17 15:00 94 01/07/17 15:00 97.2 74 18 102/71 (81) 96 01/07/17 11:00 98.4 96 18 91/66 (74) 01/07/17 11:00 96 I/O 01/07/17 01/07/17 01/07/17 01/08/17 01/08/17 01/08/17 07:00 15:00 23:00 07:00 15:00 23:00 Intake Total 471 ml 1000 ml 250 ml Output Total 2000 ml 1500 ml 1500 ml Balance -1529 ml -500 ml -1250 ml Intake Oral 461 ml 1000 ml 240 ml IV Total 10 ml 10 ml Output Urine Total 2000 ml 1500 ml 1500 ml # Bowel Movements 0 1 0 Physical Exam GENERAL: Well-nourished, well-developed patient. SKIN: Warm and dry. HEAD: Normocephalic. EYES: No scleral icterus. No injection or drainage. NECK: Supple, trachea midline. No JVD or lymphadenopathy. CARDIOVASCULAR: Regular rate and rhythm ++murmurs, gallops, or rubs. RESPIRATORY: Breath sounds equal bilaterally. No accessory muscle use. GASTROINTESTINAL: Abdomen soft, non-tender, nondistended. EXTREMITIES: No cyanosis, or edema. NEUROLOGICAL: Awake, alert, and oriented x 3. Non-focal. Laboratory Laboratory Tests Test 01/08/17 09:57 Imaging Last Impressions Chest CTA 01/05/17 0000 Signed Impressions: Service Date/Time: Friday, January 06, 2017 17:28 - CONCLUSION: Small bilateral pleural effusions with dense calcifications of aortic valve and measurements as above. K. George Gunderson MD Carotid Artery Ultrasound 01/05/17 0000 Signed Impressions: Service Date/Time: Thursday, January 05, 2017 19:12 - CONCLUSION: No significant plaque or stenosis of either carotid. Willie Joseph MD Lower Extremity Ultrasound 01/04/171046 Signed Impressions: Service Date/Time: , January 04, 2017 11:16 - CONCLUSION: No evidence of deep venous thrombosis within the lower extremities. Heri Patino MD Chest X-Ray 01/04/171046 Signed Impressions: Service Date/Time: , January 04, 2017 11:08 - CONCLUSION: 1. Minimal patchiness within the medial aspect of the right lung base consistent with atelectasis and/or mild infiltrate. Clinical correlation is recommended. 2. Cardiomegaly. Heri Patino MD CT Angiography 01/04/171046 Signed Impressions: Service Date/Time: December 13:12 - CONCLUSION: 1. No evidence of pulmonary embolism. 2. Zxyv-ep-uagjchtb bilateral pleural effusions right greater than left. 3. No pulmonary edema. Andrew French MD Assessment and Plan Problem List: (1) Heart failure ICD Codes: I50.9 - Heart failure, unspecified Status: Acute Plan: 61 y/o M severe symptomatic 2/4 Frail, STS ~2%. Awaiting 2nd CT surgery opinion for TAVR vs AVR. Recommendations: Medical therapy. CT surgery evaluation (2) Tachycardia ICD Codes: R00.0 - Tachycardia, unspecified Status: Acute Problem Qualifiers (1) Heart failure: Qualified Codes: I50.23 - Acute on chronic systolic (congestive) heart failure Moe Ruggiero MD Jan 08, 2017 10:19
--- NOTE | 2017-01-08 10:28 | ECHRPT ---
Indication: AORTIC STENOSIS, DOBUTAMINE CONCLUSIONS Low Flow Low Gradient Severe Aortic Stenosis STRESS TEST Protocol: Duration (m:s): Resting HR (bpm): Resting BP (mmHg): / MPHR: 157 Target HR: 133 Peak HR (bpm): Peak BP (mmHg): / % MPHR: Double Product: Target HR Summary: BP Response: Termination Reason: Cardiac Symptoms: REST ECHO FINDINGS 5 mcgs mean gradient 43 mmHg Post Dobutamine 31 mmHg MEASUREMENTS (Male/Female) Normal Values 2D ECHO LVOT Diameter 1.8 cm Aortic Root Diameter 3.0 cm DOPPLER AV Peak Velocity 374.8 cm/s LVOT Peak Gradient 1.0 mmHg AV Peak Gradient 56.2 mmHg LVOT Velocity Time Integr 9.9 cm AV Mean Gradient 36.8 mmHg AV Area Cont Eq vti 0.3 cm AV Velocity Time Integral 78.1 cm AV Area Cont Eq pk 0.3 cm LVOT Peak Velocity 50.4 cm/s Moe Ruggiero MD (Electronically Signed) Final Date:08 January 2017 10:27
[2017-01-08 10:48] LABS: BICARBONATE 32.9 MEQ/L (21.0-32.0); POTASSIUM 4.4 MEQ/L (3.5-5.1)
[2017-01-08] MEDS: FUROSEMIDE 40 MG TAB PO SCH ×2 (13:28→21:15)
--- NOTE | 2017-01-08 13:35 | PD.CONS ---
History of Present Illness Service CT Surgery Consult Requested By Dr. Villafuerte Reason for Consult Severe , combined acute on chronic CHF Primary Care Physician No Primary Care Physician Diagnoses: (1) Heart failure (2) New onset of congestive heart failure (3) Aortic stenosis (4) Cardiomyopathy History of Present Illness 61y/o male presents with presyncope and dyspnea. He has no past cardiac history and has been seen by Dr. Szymanski for a surgical opinion already. He was working and experienced lightheadedness and dyspnea leading to his presentation. He states he has "blacked out" recently as well. He underwent ECHO and was found to have low EF at ~20% with severe/critical . He denies PND/orthopnea. Review of Systems Constitutional: COMPLAINS OF: Diaphoretic episodes, Fatigue, DENIES: Fever, Weight gain, Weight loss, Chills, Dizziness, Change in appetite, Night Sweats Endocrine: DENIES: Heat/cold intolerance, Polydipsia, Polyuria, Polyphagia Eyes: DENIES: Blurred vision, Diplopia, Eye inflammation, Eye pain, Vision loss , Photosensitivity, Double Vision Ears, nose, mouth, throat: DENIES: Tinnitus, Hearing loss, Vertigo, Nasal discharge, Oral lesions, Throat pain, Hoarseness, Ear Pain, Running Nose, Epistaxis, Sinus Pain, Toothache, Odynophagia Respiratory: DENIES: Apneas, Cough, Snoring, Wheezing, Hemoptysis, Sputum production, Shortness of breath Cardiovascular: COMPLAINS OF: Syncope, Dyspnea on Exertion, DENIES: Chest pain , Palpitations, PND, Lower Extremity Edema, Orthopnea, Claudication Gastrointestinal: DENIES: Abdominal pain, Black stools, Bloody stools, Constipation, Diarrhea, Nausea, Vomiting, Difficulty Swallowing, Anorexia Genitourinary: DENIES: Sexual dysfunction, Urinary frequency, Urinary incontinence, Urgency, Hematuria, Dysuria, Nocturia, Penile Discharge, Testicular Pain, Testicular Swelling Musculoskeletal: DENIES: Joint pain, Muscle aches, Stiffness, Joint Swelling, Back pain, Neck pain Integumentary: DENIES: Abnormal pigmentation, Nail changes, Pruritus, Rash Hematologic/lymphatic: DENIES: Bruising, Lymphadenopathy Immunologic/allergic: DENIES: Eczema, Urticaria Neurologic: DENIES: Abnormal gait, Headache, Localized weakness, Paresthesias, Seizures, Speech Problems, Tremor, Poor Balance Psychiatric: DENIES: Anxiety, Confusion, Mood changes, Depression, Hallucinations, Agitation, Suicidal Ideation, Homicidal Ideation, Delusions Past Family Social History Allergies: Coded Allergies: No Known Allergies (Unverified , 01/04/17) Past Medical History Past Medical History History of hypertension many years ago, patient states that resolved with diet changes Past Surgical History Inguinal hernia surgery 2 Tonsillectomy Orchiectomy Reported Medications None Allergies: Coded Allergies: No Known Allergies (Unverified , 01/04/17) Family History Heart disease, hypertension Social History Denies tobacco use. Has history of heavy alcohol use. Recently switched from vodka to beer. Reports history of cocaine use, most recently 1 month ago. Denies IV drug use. Physical Exam Vital Signs Vital Signs Date Time Temp Pulse Resp B/P (MAP) Pulse Ox O2 Delivery O2 Flow Rate FiO2 01/08/17 13:02 88 01/08/17 12:23 97.9 94 18 98/68 (78) 99 01/08/17 12:23 91 01/08/17 11:16 99 01/08/17 10:00 103 01/08/17 09:25 98 01/08/17 09:00 97 01/08/17 08:31 97.4 87 16 105/82 (90) 98 01/08/17 08:31 96 01/08/17 06:00 79 01/08/17 05:00 82 01/08/17 04:00 80 01/08/17 04:00 98.2 80 18 92/76 (81) 97 01/08/17 03:00 82 01/08/17 02:00 85 01/08/17 01:00 89 01/08/17 00:00 98.4 90 18 94/64 (74) 97 01/08/17 00:00 90 01/07/17 23:00 93 01/07/17 22:00 90 01/07/17 21:00 93 01/07/17 20:00 99 01/07/17 20:00 98.0 99 20 115/74 (88) 96 01/07/17 18:21 79 01/07/17 17:24 78 01/07/17 16:36 99 01/07/17 15:00 94 01/07/17 15:00 97.2 74 18 102/71 (81) 96 Physical Exam GENERAL: This is a well-nourished, well-developed patient, in no apparent distress. SKIN: No rashes, ecchymoses or lesions. Cool and dry. HEAD: Atraumatic. Normocephalic. No temporal or scalp tenderness. EYES: Pupils equal round and reactive. Extraocular motions intact. No scleral icterus. No injection or drainage. ENT: Nose without bleeding, purulent drainage or septal hematoma. Throat without erythema, tonsillar hypertrophy or exudate. Uvula midline. Airway patent. NECK: Trachea midline. +JVD, no lymphadenopathy. Supple, nontender, no meningeal signs. CARDIOVASCULAR: Regular rate and rhythm with 2/6 STANISLAV. RESPIRATORY: Clear to auscultation. Breath sounds equal bilaterally. No wheezes , rales, or rhonchi. GASTROINTESTINAL: Abdomen soft, non-tender, nondistended. No hepato-splenomegaly , or palpable masses. No guarding. MUSCULOSKELETAL: Extremities without clubbing, cyanosis, or edema. No joint tenderness, effusion, or edema noted. No calf tenderness. Negative Homans sign bilaterally. NEUROLOGICAL: Awake and alert. Cranial nerves II through XII intact. Motor and sensory grossly within normal limits. Five out of 5 muscle strength in all muscle groups. Normal speech. Laboratory Laboratory Tests Test 01/08/17 09:57 Blood Urea Nitrogen 20 Creatinine 1.03 Random Glucose 91 Calcium Level 9.1 Sodium Level 139 Potassium Level 4.4 Chloride Level 99 Carbon Dioxide Level 32.9 Anion Gap 7 Estimat Glomerular Filtration Rate 73 Result Diagram: 01/04/17 1055 01/08/17 0957 Imaging Last Impressions Chest CTA 01/05/17 0000 Signed Impressions: Service Date/Time: Friday, January 06, 2017 17:28 - CONCLUSION: Small bilateral pleural effusions with dense calcifications of aortic valve and measurements as above. Jim Gunderson MD Carotid Artery Ultrasound 01/05/17 0000 Signed Impressions: Service Date/Time: Thursday, January 05, 2017 19:12 - CONCLUSION: No significant plaque or stenosis of either carotid. Willie Joseph MD Lower Extremity Ultrasound 01/04/17 1047 Signed Impressions: Service Date/Time: , January 04, 2017 11:16 - CONCLUSION: No evidence of deep venous thrombosis within the lower extremities. Heri Patino MD Chest X-Ray 01/04/171046 Signed Impressions: Service Date/Time: December 11:08 - CONCLUSION: 1. Minimal patchiness within the medial aspect of the right lung base consistent with atelectasis and/or mild infiltrate. Clinical correlation is recommended. 2. Cardiomegaly. Heri Patino MD CT Angiography 01/04/17 1047 Signed Impressions: Service Date/Time: December 13:12 - CONCLUSION: 1. No evidence of pulmonary embolism. 2. Sftw-qz-qqtaviiy bilateral pleural effusions right greater than left. 3. No pulmonary edema. Andrew French MD Course Patient is stable and being managed for CHF. Assessment and Plan Problem List: (1) Aortic stenosis ICD Codes: I35.0 - Nonrheumatic aortic (valve) stenosis Status: Acute (2) Cardiomyopathy ICD Codes: I42.9 - Cardiomyopathy, unspecified Status: Acute (3) Acute systolic (congestive) heart failure ICD Codes: I50.21 - Acute systolic (congestive) heart failure Status: Acute Assessment and Plan 61 y/o male presents with severe . Risk of AVR is higher secondary to low EF. Otherwise, patient is a reasonable surgical candidate. Will discuss with Dr. Villafuerte and Stephon. Problem Qualifiers (1) Heart failure: Qualified Codes: I50.23 - Acute on chronic systolic (congestive) heart failure (2) Aortic stenosis: Qualified Codes: I35.0 - Nonrheumatic aortic (valve) stenosis (3) Cardiomyopathy: Qualified Codes: I42.8 - Other cardiomyopathies Kim Ruby MD Jan 08, 2017 13:35
[2017-01-08] MEDS: ENOXAPARIN SODIUM 40 MG/0.4 ML SYRINGE SQ SCH (13:44)
[2017-01-08] MEDS ORDERED: ceFAZolin 2 GM PREMIX 50 ML IV SCH (16:00)
[2017-01-08] MEDS ORDERED: INSULIN REGULAR (IV INFUSION) 100 UNITS in SODIUM CHLORIDE 0.9% INJ 100 ML IV SCH (16:00)
[2017-01-08] MEDS ORDERED: SODIUM CHLORIDE 0.9% FLUSH 10 ML FLUSH IV FLUSH PRN (16:00)
[2017-01-08] MEDS ORDERED: METOPROLOL TARTRATE 25 MG TAB PO SCH (16:00)
[2017-01-08] MEDS ORDERED: CHLORHEXIDINE GLUCONATE 4% SOLN 120 ML BTL TOPICAL SCH (16:00)
[2017-01-08] MEDS ORDERED: CEFAZOLIN INJ 500 MG in SODIUM CHLORIDE 0.9% IRR BTL 500 ML IRRIGATION SCH (16:00)
--- NOTE | 2017-01-08 16:12 | PD.CAR.PN ---
CVT Progress Note Subjective/Hospital Course: 61m/ presented to ED with palpitations, SOB x 1 month, with episode of syncope / + troponins, / pt underwent cardiac cath which showed EF 10-15%, nonobstructive CAD/ significant gradient upon pullback of more than 40mmhg, consistent with severe aortic stenosis fragility 2/4, sts 2.13% PMH: ETOH ECHO: LVSF severly reduced EF 20-25%, global LF dysfunction , mild MR, severe , trace AI, mild TR Objective: Vital Signs Date Time Temp Pulse Resp B/P (MAP) Pulse Ox O2 Delivery O2 Flow Rate FiO2 01/08/17 15:14 92 01/08/17 14:09 95 01/08/17 13:02 88 01/08/17 12:23 97.9 94 18 98/68 (78) 99 01/08/17 12:23 91 01/08/17 11:16 99 01/08/17 10:00 103 01/08/17 09:25 98 01/08/17 09:00 97 01/08/17 08:31 97.4 87 16 105/82 (90) 98 01/08/17 08:31 96 01/08/17 06:00 79 01/08/17 05:00 82 01/08/17 04:00 80 01/08/17 04:00 98.2 80 18 92/76 (81) 97 01/08/17 03:00 82 01/08/17 02:00 85 01/08/17 01:00 89 01/08/17 00:00 98.4 90 18 94/64 (74) 97 01/08/17 00:00 90 01/07/17 23:00 93 01/07/17 22:00 90 01/07/17 21:00 93 01/07/17 20:00 99 01/07/17 20:00 98.0 99 20 115/74 (88) 96 01/07/17 18:21 79 01/07/17 17:24 78 01/07/17 16:36 99 Labs: Laboratory Tests Test 01/08/17 09:57 Blood Urea Nitrogen 20 MG/DL (7-18) Creatinine 1.03 MG/DL (0.60-1.30) Random Glucose 91 MG/DL (74-106) Calcium Level 9.1 MG/DL (8.5-10.1) Sodium Level 139 MEQ/L (136-145) Potassium Level 4.4 MEQ/L (3.5-5.1) Chloride Level 99 MEQ/L (98-107) Carbon Dioxide Level 32.9 MEQ/L (21.0-32.0) Anion Gap 7 MEQ/L (5-15) Estimat Glomerular Filtration Rate 73 ML/MIN (>89) Result Diagram: 01/04/17 1055 01/08/17 0957 (1) Heart failure Plan: 61 y/o M severe symptomatic 2/4 Frail, STS ~2%. eval by Dr Ruby, recommendations for open AVR tentatively scheduled for (2) Tachycardia Problem Qualifiers (1) Heart failure: Qualified Codes: I50.23 - Acute on chronic systolic (congestive) heart failure Pily Winkler Jan 08, 2017 16:12
[2017-01-08] MEDS ORDERED: PILL SPLITTER OTHER PRN (16:15)
[2017-01-08 23:28] LABS: BLOOD, URINE NEG (NEG); GLUCOSE,URINE NEG (NEG); KETONE, URINE NEG (NEG); NITRITE,URINE NEG (NEG); PH, URINE 6.5 (5.0-8.5); URINE COLOR LIGHT-YELLOW (YELLW/STRAW)
[2017-01-08 23:35] LABS: COMMENT (UR) CULT NOT INDICATED; CULTURE IF INDICATED CULT NOT INDICATED
[2017-01-09] VITALS (29 sets, daily range): BP systolic 95–110; BP diastolic 66–84; PULSE 67–108; RESP 16–18; TEMP 97.2–98.4; O2SAT 93–100
--- NOTE | 2017-01-09 08:30 | HHI.PR ---
Subjective Remarks patient comfortable, ambulating around room, no chest pains or shortness of breath Objective Vitals Vital Signs Date Time Temp Pulse Resp B/P (MAP) Pulse Ox O2 Delivery O2 Flow Rate FiO2 01/09/17 06:16 74 01/09/17 05:05 96 01/09/17 04:41 92 01/09/17 03:23 90 01/09/17 03:20 98.0 89 16 95/68 (77) 93 01/09/17 02:06 89 01/09/17 01:04 96 01/09/17 00:00 103 01/08/17 23:00 99 01/08/17 23:00 98.0 96 18 93/71 (78) 96 01/08/17 22:00 92 01/08/17 21:12 98.2 88 18 99/71 (80) 98 01/08/17 21:00 88 01/08/17 20:00 86 01/08/17 19:40 98 21 01/08/17 19:00 92 01/08/17 18:42 97 01/08/17 17:37 102 01/08/17 16:20 101 01/08/17 16:20 98.1 99 18 91/70 (77) 99 01/08/17 15:14 92 01/08/17 14:09 95 01/08/17 13:02 88 01/08/17 12:23 97.9 94 18 98/68 (78) 99 01/08/17 12:23 91 01/08/17 11:16 99 01/08/17 10:00 103 01/08/17 09:25 98 01/08/17 09:00 97 01/08/17 08:31 97.4 87 16 105/82 (90) 98 01/08/17 08:31 96 I/O 01/08/17 01/08/17 01/08/17 01/09/17 01/09/17 01/09/17 06:59 14:59 22:59 06:59 14:59 22:59 Intake Total 250 ml 700 ml 480 ml Output Total 1500 ml 400 ml 2865 ml Balance -1250 ml 300 ml -2385 ml Intake Oral 240 ml 700 ml 480 ml IV Total 10 ml Output Urine Total 1500 ml 400 ml 2865 ml # Voids 7 # Bowel Movements 0 1 Result Diagram: 01/08/17 0957 Imaging Last Impressions Chest CTA 01/05/17 0000 Signed Impressions: Service Date/Time: Friday, January 06, 2017 17:28 - CONCLUSION: Small bilateral pleural effusions with dense calcifications of aortic valve and measurements as above. Jim Gunderson MD Carotid Artery Ultrasound 01/05/17 0000 Signed Impressions: Service Date/Time: Thursday, January 05, 2017 19:12 - CONCLUSION: No significant plaque or stenosis of either carotid. Willie Joseph MD Lower Extremity Ultrasound 01/04/17 1047 Signed Impressions: Service Date/Time: , January 04, 2017 11:16 - CONCLUSION: No evidence of deep venous thrombosis within the lower extremities. Heri Patino MD Chest X-Ray 01/04/17 1047 Signed Impressions: Service Date/Time: , January 04, 2017 11:08 - CONCLUSION: 1. Minimal patchiness within the medial aspect of the right lung base consistent with atelectasis and/or mild infiltrate. Clinical correlation is recommended. 2. Cardiomegaly. Heri Patino MD CT Angiography 01/04/17 1047 Signed Impressions: Service Date/Time: December 13:12 - CONCLUSION: 1. No evidence of pulmonary embolism. 2. [id number]-[id number] bilateral pleural effusions right greater than left. 3. No pulmonary edema. Andrew French MD Objective Remarks awake and alert oriented x 3- good sats at room air anicteric no carotid bruit lungs- no rales or wheezes regular rhythm, 3/6 systolic murmur left sternal border abdomen soft, nontender extremiteis no edema, ++ peripheral pulses neuro exam- unremarkable Procedures 01/04/17 cardiac catheterization- non ischemic cardiomypathy, severe LV dysfunction A/P Problem List: (1) Acute systolic (congestive) heart failure ICD Code: I50.21 - Acute systolic (congestive) heart failure Status: Acute (2) Aortic stenosis ICD Code: I35.0 - Nonrheumatic aortic (valve) stenosis Status: Acute (3) Cardiomyopathy ICD Code: I42.9 - Cardiomyopathy, unspecified Status: Acute Assessment and Plan 61 years old male admitted for new onset CHF- clinically improved Acute systolic congestive heart failure, cardiomyopathy secondary to - Severe Aortic stenosis. - non ischemic CMP S/P cardiac catheterization: ECHO significant for severe aortic stenosis and ejection fraction of 5 percent. Cardiology ff- Cardiothoracic surgery ff -- plan for open AVR- Strict intake/output. Heart healthy diet. Aspirin 81 mg daily. continue on Coreg and SUMIT. - adjust dose as BP tolerates po Lasix 40 mg po bid Alcohol abuse: Patient was counseled. [facility] protocol. patient admits to [employer] in the past- 5 years ago. Now states occasionally drinks beer- 1-2 at the most. no DTs Cocaine abuse: Patient was counseled. States that his most recent use was 1 month ago. Urine drug screen is negative. DVT- ambulate, Increase activity. Lovenox 30 mg SQ daily Problem Qualifiers (1) Aortic stenosis: Qualified Codes: I35.0 - Nonrheumatic aortic (valve) stenosis (2) Cardiomyopathy: Qualified Codes: I42.8 - Other cardiomyopathies Oly Mcelroy MD Jan 09, 2017 08:30
[2017-01-09] MEDS: SODIUM CHLORIDE 0.9% FLUSH 10 ML FLUSH IV FLUSH SCH ×4 (09:00→21:00)
[2017-01-09] MEDS: CARVEDILOL 3.125 MG TAB PO SCH ×2 (09:19→21:00)
[2017-01-09] MEDS: ASPIRIN 81 MG CHEW TAB CHEW SCH (09:19)
[2017-01-09] MEDS: FUROSEMIDE 40 MG TAB PO SCH ×2 (09:19→17:30)
[2017-01-09] MEDS: POTASSIUM CHLORIDE 20 MEQ CONTROLLED RELEASE TAB PO SCH (09:19)
--- NOTE | 2017-01-09 11:08 | PD.CAR.PN ---
CVT Progress Note Subjective/Hospital Course: 61m/ presented to ED with palpitations, SOB x 1 month, with episode of syncope / + troponins, / pt underwent cardiac cath which showed EF 10-15%, nonobstructive CAD/ significant gradient upon pullback of more than 40mmhg, consistent with severe aortic stenosis fragility 2/4, sts 2.13% PMH: ETOH ECHO: LVSF severely reduced EF 20-25%, global LF dysfunction , mild MR, severe , trace AI, mild TR 01/09 pt scheduled for surgery on no evidence of withdrawal Objective: Vital Signs Date Time Temp Pulse Resp B/P (MAP) Pulse Ox O2 Delivery O2 Flow Rate FiO2 01/09/17 10:03 90 01/09/17 09:00 104 01/09/17 08:00 94 01/09/17 07:15 97.9 95 16 109/84 (92) 97 01/09/17 07:00 84 01/09/17 06:16 74 01/09/17 05:05 96 01/09/17 04:41 92 01/09/17 03:23 90 01/09/17 03:20 98.0 89 16 95/68 (77) 93 01/09/17 02:06 89 01/09/17 01:04 96 01/09/17 00:00 103 01/08/17 23:00 99 01/08/17 23:00 98.0 96 18 93/71 (78) 96 01/08/17 22:00 92 01/08/17 21:12 98.2 88 18 99/71 (80) 98 01/08/17 21:00 88 01/08/17 20:00 86 01/08/17 19:40 98 21 01/08/17 19:00 92 01/08/17 18:42 97 01/08/17 17:37 102 01/08/17 16:20 101 01/08/17 16:20 98.1 99 18 91/70 (77) 99 01/08/17 15:14 92 01/08/17 14:09 95 01/08/17 13:02 88 01/08/17 12:23 97.9 94 18 98/68 (78) 99 01/08/17 12:23 91 01/08/17 11:16 99 Result Diagram: 01/08/17 0957 (1) Heart failure Plan: 61 y/o M severe symptomatic 2/4 Frail, STS ~2%. eval by Dr Ruby, recommendations for open AVR tentatively scheduled for (2) Tachycardia Problem Qualifiers (1) Heart failure: Qualified Codes: I50.23 - Acute on chronic systolic (congestive) heart failure Pily Winkler Jan 09, 2017 11:08
[2017-01-09] MEDS: ENOXAPARIN SODIUM 40 MG/0.4 ML SYRINGE SQ SCH (12:17)
[2017-01-09] MEDS ORDERED: ACETAMINOPHEN/HYDROcodone 325 MG/5 MG TAB PO ONE (22:30)
[2017-01-10] VITALS (28 sets, daily range): BP systolic 86–110; BP diastolic 67–91; PULSE 83–106; RESP 16–18; TEMP 97.8–99.1; O2SAT 16–100
[2017-01-10 06:40] LABS: AUTOMATED NEUTROPHIL # 5.3 TH/MM3 (1.8-7.7); BASOPHIL % 0.6 % (0.0-2.0); EOSINOPHIL # 0.2 TH/MM3 (0-0.4); EOSINOPHIL % 2.1 % (0.0-4.0); HEMATOCRIT 45.5 % (39.0-51.0); HEMO FLAGS DIFF FINAL; LYMPH % 21.8 % (9.0-44.0); LYMPHOCYTE # 1.8 TH/MM3 (1.0-4.8); MEAN CELL VOLUME 91.8 FL (80.0-100.0); MEAN CORPUSCULAR HEMOGLOBIN 30.2 PG (27.0-34.0); MEAN CORPUSCULAR HGB CONC 32.9 % (32.0-36.0); MONO % 11.5 % (0.0-8.0); PLATELET COUNT 265 TH/MM3 (150-450); RED BLOOD COUNT 4.96 MIL/MM3 (4.50-5.90); RED CELL DISTRIBUTION WIDTH 14.7 % (11.6-17.2); WHITE BLOOD COUNT 8.3 TH/MM3 (4.0-11.0)
[2017-01-10 07:01] LABS: ALT (GPT) 49 U/L (12-78); ANION GAP 10 MEQ/L (5-15); AST (GOT) 26 U/L (15-37); BICARBONATE 27.4 MEQ/L (21.0-32.0); BLOOD UREA NITROGEN 25 MG/DL (7-18); CHLORIDE 101 MEQ/L (98-107); GLOMERULAR FILTRATION RATE 66 ML/MIN (>89); POTASSIUM 3.7 MEQ/L (3.5-5.1); SODIUM (NA) 138 MEQ/L (136-145)
[2017-01-10 07:03] LABS: ALKALINE PHOSPHATASE 113 U/L (45-117); TOTAL BILIRUBIN ADULT 0.5 MG/DL (0.2-1.0)
[2017-01-10] MEDS: POTASSIUM CHLORIDE 20 MEQ CONTROLLED RELEASE TAB PO SCH (08:55)
[2017-01-10] MEDS: ASPIRIN 81 MG CHEW TAB CHEW SCH (08:56)
[2017-01-10] MEDS: CARVEDILOL 3.125 MG TAB PO SCH ×2 (08:56→21:00)
[2017-01-10] MEDS: FUROSEMIDE 40 MG TAB PO SCH ×2 (08:56→18:33)
[2017-01-10] MEDS: SODIUM CHLORIDE 0.9% FLUSH 10 ML FLUSH IV FLUSH SCH ×4 (08:57→21:00)
--- NOTE | 2017-01-10 09:38 | HHI.PR ---
Subjective Remarks noc hest pain or shortness of breath complained of some low back discomfort "for laying down too much" no nausea or vomiting Objective Vitals Vital Signs Date Time Temp Pulse Resp B/P (MAP) Pulse Ox O2 Delivery O2 Flow Rate FiO2 01/10/17 07:37 98.4 90 16 110/71 (84) 100 01/10/17 06:28 97 01/10/17 05:19 90 01/10/17 04:51 84 01/10/17 03:51 97.9 92 16 101/82 (88) 100 01/10/17 03:19 83 01/10/17 02:14 83 01/10/17 01:00 86 01/10/17 00:00 96 01/09/17 23:00 98.0 95 18 98/72 (81) 98 01/09/17 23:00 91 01/09/17 22:00 94 01/09/17 21:52 94 21 01/09/17 21:00 108 01/09/17 20:15 108 01/09/17 19:20 97 01/09/17 19:20 98.3 92 16 96/80 (85) 94 01/09/17 18:17 67 01/09/17 17:00 92 01/09/17 16:00 90 01/09/17 15:00 90 01/09/17 15:00 97.2 84 16 110/84 (93) 100 01/09/17 14:00 90 01/09/17 13:00 92 01/09/17 12:34 98 21 01/09/17 12:00 90 01/09/17 11:15 98.4 96 16 95/66 (76) 97 01/09/17 11:08 85 01/09/17 10:03 90 I/O 01/09/17 01/09/17 01/09/17 01/10/17 01/10/17 01/10/17 07:00 15:00 23:00 07:00 15:00 23:00 Intake Total 480 ml 800 ml 720 ml Output Total 2865 ml 1300 ml 950 ml Balance -2385 ml -500 ml -230 ml Intake Oral 480 ml 800 ml 720 ml Output Urine Total 2865 ml 1300 ml 950 ml # Voids 7 # Bowel Movements 1 1 Result Diagram: 01/10/17 0550 01/10/17 0530 Imaging Last Impressions Chest CTA 01/05/17 0000 Signed Impressions: Service Date/Time: Friday, January 06, 2017 17:28 - CONCLUSION: Small bilateral pleural effusions with dense calcifications of aortic valve and measurements as above. Jim Gunderson MD Carotid Artery Ultrasound 01/05/17 0000 Signed Impressions: Service Date/Time: Thursday, January 05, 2017 19:12 - CONCLUSION: No significant plaque or stenosis of either carotid. Willie Joseph MD Lower Extremity Ultrasound 01/04/17 1047 Signed Impressions: Service Date/Time: , January 04, 2017 11:16 - CONCLUSION: No evidence of deep venous thrombosis within the lower extremities. Heri Patino MD Chest X-Ray 01/04/171046 Signed Impressions: Service Date/Time: , January 04, 2017 11:08 - CONCLUSION: 1. Minimal patchiness within the medial aspect of the right lung base consistent with atelectasis and/or mild infiltrate. Clinical correlation is recommended. 2. Cardiomegaly. Heri Patino MD CT Angiography 01/04/17 1047 Signed Impressions: Service Date/Time: December 13:12 - CONCLUSION: 1. No evidence of pulmonary embolism. 2. Mpck-su-[id number] bilateral pleural effusions right greater than left. 3. No pulmonary edema. Andrew French MD Objective Remarks awake and alert oriented x 3- good sats at room air anicteric no carotid bruit lungs- no rales or wheezes regular rhythm, 3/6 systolic murmur left sternal border abdomen soft, nontender extremities no edema, ++ peripheral pulses neuro exam- unremarkable Procedures 01/04/17 cardiac catheterization- non ischemic cardiomyopathy, severe LV dysfunction A/P Problem List: (1) Acute systolic (congestive) heart failure ICD Code: I50.21 - Acute systolic (congestive) heart failure Status: Acute (2) Aortic stenosis ICD Code: I35.0 - Nonrheumatic aortic (valve) stenosis Status: Acute (3) Cardiomyopathy ICD Code: I42.9 - Cardiomyopathy, unspecified Status: Acute Assessment and Plan 61 years old male admitted for new onset CHF- clinically improved Acute systolic congestive heart failure, cardiomyopathy secondary to - Severe Aortic stenosis. - non ischemic CMP S/P cardiac catheterization: ECHO significant for severe aortic stenosis and ejection fraction of 5 percent. Cardiothoracic surgery ff -- plan for open AVR- tomorrow patient getting TAVR education Aspirin 81 mg daily. continue on Coreg, Lasix, KCL SUMIT held due to borderline SBP- conisder starting post op Alcohol abuse: Patient was counseled. [facility] protocol. patient admits to [place] in the past- 5 years ago. Now states occasionally drinks beer- 1-2 at the most. no DTs Cocaine abuse: Patient was counseled. States that his most recent use was 1 month ago. Urine drug screen is negative. Acute LOw back pain- mild discussed with him- up and ambulate. Tylenol prn for pain. no narcotics DVT- ambulate, Increase activity. Lovenox 30 mg SQ daily Problem Qualifiers (1) Aortic stenosis: Qualified Codes: I35.0 - Nonrheumatic aortic (valve) stenosis (2) Cardiomyopathy: Qualified Codes: I42.8 - Other cardiomyopathies Oly Mcelroy MD Jan 10, 2017 09:38
[2017-01-10] MEDS ORDERED: ACETAMINOPHEN 325 MG TAB PO PRN (10:00)
[2017-01-10 11:05] LABS: HEMOGLOBIN A1a 1.1 %; HEMOGLOBIN A1b 1.6 %; HEMOGLOBIN Ao 84.7 %; HEMOGLOBIN LA1C 2.2 %; HEMOGLOBIN P3 4.1 %
--- NOTE | 2017-01-10 12:47 | PD.CAR.PN ---
CVT Progress Note Subjective/Hospital Course: 61m/ presented to ED with palpitations, SOB x 1 month, with episode of syncope / + troponins, / pt underwent cardiac cath which showed EF 10-15%, nonobstructive CAD/ significant gradient upon pullback of more than 40mmhg, consistent with severe aortic stenosis fragility 2/4, sts 2.13% PMH: ETOH ECHO: LVSF severely reduced EF 20-25%, global LF dysfunction , mild MR, severe , trace AI, mild TR 01/09 pt scheduled for surgery on no evidence of withdrawal 01/10 doing well, no chest discomfort for surgery in am Objective: GENERAL: SKIN: Warm and dry. HEAD: Normocephalic. EYES: No scleral icterus. No injection or drainage. NECK: Supple, trachea midline. No JVD or lymphadenopathy. CARDIOVASCULAR: Regular rate and rhythm without, gallops, or rubs 3/6 sm RESPIRATORY: Breath sounds equal bilaterally. No accessory muscle use. GASTROINTESTINAL: Abdomen soft, non-tender, nondistended. MUSCULOSKELETAL: No cyanosis, or edema. BACK: Nontender without obvious deformity. No CVA tenderness. Vital Signs Date Time Temp Pulse Resp B/P (MAP) Pulse Ox O2 Delivery O2 Flow Rate FiO2 01/10/17 12:00 98 01/10/17 11:12 97.8 95 16 90/67 (75) 99 01/10/17 11:00 96 01/10/17 10:00 96 01/10/17 09:00 106 01/10/17 08:00 96 01/10/17 07:37 98.4 90 16 110/71 (84) 100 01/10/17 07:00 91 01/10/17 06:28 97 01/10/17 05:19 90 01/10/17 04:51 84 01/10/17 03:51 97.9 92 16 101/82 (88) 100 01/10/17 03:19 83 01/10/17 02:14 83 01/10/17 01:00 86 01/10/17 00:00 96 01/09/17 23:00 98.0 95 18 98/72 (81) 98 01/09/17 23:00 91 01/09/17 22:00 94 01/09/17 21:52 94 21 01/09/17 21:00 108 01/09/17 20:15 108 01/09/17 19:20 97 01/09/17 19:20 98.3 92 16 96/80 (85) 94 01/09/17 18:17 67 01/09/17 17:00 92 01/09/17 16:00 90 01/09/17 15:00 90 01/09/17 15:00 97.2 84 16 110/84 (93) 100 01/09/17 14:00 90 01/09/17 13:00 92 Labs: Laboratory Tests Test 01/10/17 05:30 01/10/17 05:50 Blood Urea Nitrogen 25 MG/DL (7-18) Creatinine 1.13 MG/DL (0.60-1.30) Random Glucose 103 MG/DL (74-106) Total Protein 6.8 GM/DL (6.4-8.2) Albumin 3.2 GM/DL (3.4-5.0) Calcium Level 8.8 MG/DL (8.5-10.1) Alkaline Phosphatase 113 U/L (45-117) Aspartate Amino Transf (AST/SGOT) 26 U/L (15-37) Alanine Aminotransferase (ALT/SGPT) 49 U/L (12-78) Total Bilirubin 0.5 MG/DL (0.2-1.0) Sodium Level 138 MEQ/L (136-145) Potassium Level 3.7 MEQ/L (3.5-5.1) Chloride Level 101 MEQ/L (98-107) Carbon Dioxide Level 27.4 MEQ/L (21.0-32.0) Anion Gap 10 MEQ/L (5-15) Estimat Glomerular Filtration Rate 66 ML/MIN (>89) Hemoglobin A1c 5.8 % (4.3-6.0) White Blood Count 8.3 TH/MM3 (4.0-11.0) Red Blood Count 4.96 MIL/MM3 (4.50-5.90) Hemoglobin 15.0 GM/DL (13.0-17.0) Hematocrit 45.5 % (39.0-51.0) Mean Corpuscular Volume 91.8 FL (80.0-100.0) Mean Corpuscular Hemoglobin 30.2 PG (27.0-34.0) Mean Corpuscular Hemoglobin Concent 32.9 % (32.0-36.0) Red Cell Distribution Width 14.7 % (11.6-17.2) Platelet Count 265 TH/MM3 (150-450) Mean Platelet Volume 7.5 FL (7.0-11.0) Neutrophils (%) (Auto) 64.0 % (16.0-70.0) Lymphocytes (%) (Auto) 21.8 % (9.0-44.0) Monocytes (%) (Auto) 11.5 % (0.0-8.0) Eosinophils (%) (Auto) 2.1 % (0.0-4.0) Basophils (%) (Auto) 0.6 % (0.0-2.0) Neutrophils # (Auto) 5.3 TH/MM3 (1.8-7.7) Lymphocytes # (Auto) 1.8 TH/MM3 (1.0-4.8) Monocytes # (Auto) 1.0 TH/MM3 (0-0.9) Eosinophils # (Auto) 0.2 TH/MM3 (0-0.4) Basophils # (Auto) 0.0 TH/MM3 (0-0.2) CBC Comment DIFF FINAL Differential Comment Result Diagram: 01/10/17 0550 01/10/17 0530 (1) Heart failure Plan: 61 y/o M severe symptomatic 2/4 Frail, STS ~2%. eval by Dr Ruby, recommendations for open AVR tentatively scheduled for (2) Tachycardia Problem Qualifiers (1) Heart failure: Qualified Codes: I50.23 - Acute on chronic systolic (congestive) heart failure Pily Winkler Jan 10, 2017 12:47
[2017-01-11] VITALS (21 sets, daily range): BP systolic 92–133; BP diastolic 52–84; PULSE 73–98; RESP 16–18; TEMP 97.4–98.3; O2SAT 93–100
[2017-01-11] MEDS ORDERED: CALCIUM CHLORIDE 10% SOLN 1 GRAM/10 ML SYR IV ONE (05:00)
[2017-01-11] MEDS ORDERED: ARTIFICIAL TEARS OPTH OINT 3.5 APPLIC/3.5 GM TUBO ONE (05:00)
[2017-01-11] MEDS ORDERED: EPINEPHrine HCL (1:1000) 1 MG/ML VIAL IV ONE (05:00)
[2017-01-11] MEDS ORDERED: MILRINONE LACTATE 20 MG/20 ML VIAL IV ONE (05:00)
[2017-01-11] MEDS ORDERED: MAGNESIUM SULFATE 1000 MG/2 ML VIAL (PED) IV ONE (05:00)
[2017-01-11] MEDS ORDERED: AMINOCAPROIC ACID INJ 250 MG/ML 20 ML VIAL IV ONE (05:00)
[2017-01-11] MEDS ORDERED: HEPARIN SODIUM - SQ 10,000 UNITS/ML VIAL SQ ONE (05:00)
[2017-01-11] MEDS ORDERED: SODIUM BICARBONATE 8.4% INJ 50 MEQ/50 ML SYR IV ONE (05:00)
[2017-01-11] MEDS ORDERED: PHENYLEPHRINE HCL 10 MG/ML VIAL IV ONE (05:00)
[2017-01-11] MEDS ORDERED: PROTAMINE SULFATE 250 MG/25 ML VIAL IV ONE (05:00)
[2017-01-11] MEDS ORDERED: GLYCOPYRROLATE 0.2 MG/ML VIAL IV ONE (05:00)
[2017-01-11] MEDS ORDERED: VASOPRESSIN 20 UNITS/ML VIAL (IVTITR) IV ONE (05:00)
[2017-01-11] MEDS ORDERED: ceFAZolin 2 GM PREMIX 50 ML ONE (06:27)
[2017-01-11] MEDS ORDERED: VANCOMYCIN HCL 1000 MG VIAL ONE (06:27)
[2017-01-11] MEDS ORDERED: HEPARIN SODIUM - SQ 10,000 UNITS/ML VIAL ONE (06:27)
[2017-01-11] MEDS ORDERED: ALBUMIN HUMAN 25% 12.5 GM/50 ML BAGP IV ONE (06:57)
[2017-01-11] MEDS ORDERED: MANNITOL INJ 100 ML ONE (06:57)
[2017-01-11] MEDS ORDERED: HEPARIN SODIUM - IV 10,000 UNITS/10 ML VIAL ONE (06:58)
[2017-01-11] MEDS: POTASSIUM CHLORIDE 20 MEQ CONTROLLED RELEASE TAB PO SCH (09:00)
[2017-01-11] MEDS: CARVEDILOL 3.125 MG TAB PO SCH ×2 (09:00→21:24)
[2017-01-11] MEDS: FUROSEMIDE 40 MG TAB PO SCH ×2 (09:00→17:12)
--- NOTE | 2017-01-11 09:24 | RSPPFT ---
DATE OF PROCEDURE: 01/08/17 COMMENTS: The forced vital capacity is reduced. The FEV1 is reduced. The FEV1/FVC ratio is normal. The FEF 25-75 is normal. IMPRESSION: This is compatible with moderate restrictive lung disease.
[2017-01-11] MEDS ORDERED: LACTATED RINGER'S 1000 ML INJ 1,000 ML IV ONE (09:54)
[2017-01-11] MEDS ORDERED: SODIUM CHLOR 0.9% 250 ML INJ 1,000 ML IV ONE (09:54)
[2017-01-11] MEDS ORDERED: VECURONIUM BROMIDE 20 MG VIAL IV ONE (09:54)
[2017-01-11] MEDS ORDERED: NORMOSOL R INJ 2,000 ML IV ONE (09:54)
[2017-01-11] MEDS ORDERED: VASOPRESSIN 20 UNITS/ML VIAL (IVTITR) ONE (11:34)
[2017-01-11] MEDS ORDERED: DOBUTamine PREMIX DRIP 250 ML IV SCH (11:41)
[2017-01-11] MEDS ORDERED: NITROGLYCERIN-D5W 50 MG/250 ML 250 ML IV PRN (11:41)
[2017-01-11] MEDS ORDERED: LACTATED RINGER'S 1000 ML INJ 500 ML IV PRN (11:41)
[2017-01-11] MEDS ORDERED: CLEVIDIPINE INJ 50 ML IV PRN (11:41)
[2017-01-11] MEDS ORDERED: DOPamine INJ PREMIX 500 ML IV PRN (11:41)
[2017-01-11] MEDS ORDERED: INSULIN REGULAR (IV INFUSION) 100 UNITS in SODIUM CHLORIDE 0.9% INJ 99 ML IV SCH (11:41)
[2017-01-11] MEDS ORDERED: DEXMEDETOMIDINE INJ 200 MCG in SODIUM CHLORIDE 0.9% INJ 50 ML IV PRN (11:41)
[2017-01-11] MEDS ORDERED: PHENYLEPHRINE INJ 40 MG in DEXTROSE 5% IN WATE 500 ML INJ 496 ML IV PRN ×2 (11:41)
[2017-01-11] MEDS ORDERED: ceFAZolin INJ 1,000 MG VIAL ONE (11:42)
[2017-01-11] MEDS ORDERED: RESP: ALBUTEROL 2.5 MG/IPRATROPIUM 0.5 MG NEB (PRN) NEB (11:45)
[2017-01-11] MEDS ORDERED: METOPROLOL TARTRATE 5 MG/5 ML VIAL IV PUSH PRN (11:45)
[2017-01-11] MEDS ORDERED: RESP: RACEPINEPHRINE 2.25% 0.5 ML NEB NEB PRN (11:45)
[2017-01-11] MEDS ORDERED: MAGNESIUM SULFATE INJ 2 GM in SODIUM CHLORIDE 0.9% INJ 100 ML IV PRN ×4 (11:45)
[2017-01-11] MEDS ORDERED: POTASSIUM CHLOR 20 MEQ PREMIX 100 ML IV PRN ×3 (11:45)
[2017-01-11] MEDS ORDERED: CALCIUM CHLORIDE INJ 1 GM in SODIUM CHLORIDE 0.9% INJ 100 ML IV PRN (11:45)
[2017-01-11] MEDS ORDERED: POTASSIUM CHLORIDE 20 MEQ CONTROLLED RELEASE TAB PO PRN ×2 (11:45)
[2017-01-11] MEDS ORDERED: KETOROLAC TROMETHAMINE 30 MG/ML (IVP) VIAL IV PUSH PRN (11:45)
[2017-01-11] MEDS ORDERED: Post-op Orders (for Pharmacy) MISC OTHER ONE (11:45)
[2017-01-11] MEDS ORDERED: ALBUMIN HUMAN 5% 12.5 GM/250 ML BOTTLE IV PRN (11:45)
[2017-01-11] MEDS: ceFAZolin 2 GM PREMIX 50 ML IV SCH ×2 (11:45→18:42)
[2017-01-11] MEDS ORDERED: ONDANSETRON HCL 4 MG/2 ML VIAL IV PUSH PRN (11:45)
[2017-01-11] MEDS ORDERED: ACETAMINOPHEN 650 MG SUPP RECTAL PRN (11:45)
[2017-01-11] MEDS ORDERED: MEPERIDINE HCL 25 MG/ML VIAL IV PRN (11:45)
[2017-01-11] MEDS ORDERED: MORPHINE SULFATE 4 MG/ML INJ IV PRN (11:45)
[2017-01-11] MEDS ORDERED: CALCIUM CHLORIDE 10% 1 GRAM/10 ML VIAL IV PRN (11:45)
[2017-01-11] MEDS ORDERED: SODIUM CHLORIDE 0.9% FLUSH 10 ML FLUSH IV FLUSH PRN (11:45)
[2017-01-11] MEDS ORDERED: DEXTROSE 50% IN WATER 50 ML VIAL(D50) IV PUSH PRN (11:45)
[2017-01-11] MEDS ORDERED: ACETAMINOPHEN 325 MG TAB PO PRN (11:45)
[2017-01-11] MEDS: SODIUM CHLORIDE 0.9% FLUSH 10 ML FLUSH IV FLUSH SCH ×2 (11:45→21:21)
[2017-01-11] MEDS ORDERED: hydrALAZINE HCL 20 MG/ML VIAL IV PRN (11:45)
[2017-01-11] MEDS ORDERED: MIDAZOLAM HCL 5 MG/5 ML VIAL ONE (12:17)
[2017-01-11] MEDS ORDERED: fentaNYL CITRATE 1000 MCG/20 ML VIAL ONE (12:18)
--- NOTE | 2017-01-11 13:03 | PD.OP ---
cc: Moe Ruggiero MD; Josefina Szymanski MD Operative Report Date of Surgery: Jan 11, 2017 Preoperative Diagnosis: Postoperative Diagnosis: Procedure: 1. Mini-Sternotomy 2. Aortic Valve Replacement with a 27mm Mosaic Cinch II Tissue valve Surgeon: Josefina Szymanski Pantograph I Engraver(s): Willie Miller Operation and Findings: PREOPERATIVE DIAGNOSES 1. Severe Aortic Stenosis. 2. Mild Aortic Insufficiency 3. Severe Left Ventricular Dysfunction (EF 15%) 4. Alcoholism POSTOPERATIVE DIAGNOSES Same SURGICAL PROCEDURE 1. Mini-Sternotomy 2. Aortic Valve Replacement with a 27mm Mosaic Cinch II Tissue valve CAR DISPATCHER RACHEL Huynh ANESTHESIA General endotracheal. ARTIFICIAL TEETH INSPECTOR Nomi Miller CRNA, Willy Wang MD PREPARATION ChloraPrep. NEEDLE, SPONGE AND INSTRUMENT COUNT Correct. DRAINS One 32-Kazakh mediastinal tube. COMPLICATIONS None. INDICATIONS The patient is an 61-year-old gentleman with severe aortic stenosis and severe non-ischemic cardiomyopathy, presenting for surgical correction of the above pathology. DESCRIPTION OF PROCEDURE The patient was brought to the operating room and placed supine on the OR table. Following the induction of adequate general endotracheal anesthesia and placement of appropriate monitoring devices, the patient was then prepped and draped in the standard sterile fashion. A 7 cm incision was made overlying the manubrium and the superior aspect of the sternum. Fernando-sternotomy was performed upto the 3rd ICS and the sternotomy T-ed at that point. The pericardium was divided in the midline and the cradle created. The patient was systemically heparinized and anticoagulation monitored by serial ACT measurements. Then 2 pursestring sutures of 2-0 Ethibond were placed on the aorta proximal to the takeoff of the innominate artery, another was placed in the right atrial appendage. At this point, aortic and 2-stage venous cannulas were introduced and attached to the arterial and venous components of the bypass circuit respectively. Antegrade cardioplegia cannula and a left ventricular vent, through the right superior pulmonary vein, were also placed. The patient was placed on cardiopulmonary bypass and core cooling initiated to a temperature of 32 degrees centigrade. The crossclamp was applied and 1.3 L of antegrade cardioplegia solution (Senior Care HTK) given in an antegrade fashion in addition to topical cooling with slushed saline. Upon achieving adequate diastolic arrest of the heart a transverse aortotomy was performed. Additional 500 mls ( Left Main) and 300 mls (RCA) of cardioplegia was given directly in the coronary ostia. The aortic valve was then excised and sent for microbiologic analysis. The valve and annulus were noted to be very heavily calcified. Circumferential decalcification was performed. Horizontal mattress sutures of interrupted 2-0 Ethibond were placed on the aortic annulus with pledgets on the ventricular side. After adequate sizing, a 27 mm Mosaic Cinch II tissue valve was brought in the surgical field and the sutures passed through the skirt and the valve was situated using the Cor-Knot device. This appeared to be a good fit. Gradual rewarming was initiated and the aortotomy closed in 2 layers. This was with 4-0 Prolene; the 1st layer being horizontal mattress, the 2nd layer being running baseball stitch. The cross clamp was removed and upon achieving normothermic cardiac activity, transesophageal echocardiography revealed a well-situated aortic prosthesis with no evidence of perivalvular leak and no aortic stenosis or aortic regurgitation. Protamine was administered. Decannulation was performed and all sites were inspected for hemostasis. At this point the closure was undertaken. The pericardium was reapproximated in the midline. A 32 Fr chest tube was placed and the sternum was reapproximated using stainless steel sternal wires. The musculo-fascial layer was then closed in 3 layers. The patient tolerated the procedure well and was transferred to open heart recovery in stable condition. Josefina Szymanski MD Jan 11, 2017 13:03
--- NOTE | 2017-01-11 13:08 | RADRPT ---
EXAM DATE/TIME: 01/11/2017 12:31 [facility] COMPARISON: CHEST SINGLE AP, January 04, 2017, 11:08. INDICATIONS : Post CABG. MEDICAL HISTORY : None. SURGICAL HISTORY : None. ENCOUNTER: Initial ACUITY: 1 day PAIN SCORE: Non-responsive. LOCATION: Bilateral chest FINDINGS: The endotracheal tube and mediastinal drain are in good position. There is a nasogastric tube. The ti p of the tube is in the distal esophagus. There is a right jugular central line and a 4 [place]une[place] introd ucer in the right jugular vein. There is no pneumothorax. The patient is postmedian sternotomy. Heart is mildly enlarged. CONCLUSION: 1. Stable postoperative chest. Antoine Hsieh MD on January 11, 2017 at 13:05 Board Certified Radiologist. This report was verified electronically.
[2017-01-11] MEDS: ACETAMINOPHEN 1000 MG/100 ML VIAL IV SCH ×2 (13:24→18:42)
[2017-01-11] MEDS ORDERED: CUSTODIOL HTK IRR SOLN 1,000 ML OTHER ONE (14:44)
--- NOTE | 2017-01-11 15:33 | HHI.PR ---
Subjective Remarks patient up already on the chair- extubated awake , complains of pain chest tube side Objective Vitals Vital Signs Date Time Temp Pulse Resp B/P (MAP) Pulse Ox O2 Delivery O2 Flow Rate FiO2 01/11/17 14:38 98.2 01/11/17 13:54 16 01/11/17 13:54 16 01/11/17 13:54 16 01/11/17 12:40 93 Nasal Cannula 4 01/11/17 12:40 93 Nasal Cannula 4.00 01/11/17 12:10 98.2 85 16 95/63 (74) 97 107/67 (80) 01/11/17 12:10 73 01/11/17 11:41 89 98/52 01/11/17 11:34 84 95/63 01/11/17 07:30 85 01/11/17 05:27 83 01/11/17 04:31 84 01/11/17 03:40 98.1 98 16 105/84 (91) 96 01/11/17 03:35 84 01/11/17 02:06 93 01/11/17 01:00 90 01/11/17 00:00 90 01/10/17 23:15 98.2 98 16 86/67 (73) 94 01/10/17 23:00 94 01/10/17 22:00 102 01/10/17 21:00 104 01/10/17 20:20 90 01/10/17 19:30 98.2 90 16 108/91 (97) 93 01/10/17 19:30 96 01/10/17 18:24 91 01/10/17 17:00 96 01/10/17 16:00 102 01/10/17 16:00 99.1 100 18 97/74 (82) 99 I/O 01/10/17 01/10/17 01/10/17 01/11/17 01/11/17 01/11/17 07:00 15:00 23:00 07:00 15:00 23:00 Intake Total 720 ml 720 ml 480 ml 3862 ml Output Total 950 ml 700 ml 1425 ml Balance -230 ml 20 ml 480 ml 2437 ml Intake Oral 720 ml 720 ml 480 ml IV Total 100 ml Autotransfusion 762 ml Other 3000 ml Output Urine Total 950 ml 700 ml 1300 ml Chest Tube Drainage Total 125 ml # Bowel Movements 1 3 0 Result Diagram: 01/10/17 0550 01/10/17 0530 Imaging Last Impressions Chest X-Ray 01/11/17 0000 Signed Impressions: Service Date/Time: December 12:31 - CONCLUSION: 1. Stable postoperative chest. Antoine Hsieh MD Chest CTA 01/05/17 0000 Signed Impressions: Service Date/Time: Friday, January 06, 2017 17:28 - CONCLUSION: Small bilateral pleural effusions with dense calcifications of aortic valve and measurements as above. Jim Gunderson MD Carotid Artery Ultrasound 01/05/17 0000 Signed Impressions: Service Date/Time: Thursday, January 05, 2017 19:12 - CONCLUSION: No significant plaque or stenosis of either carotid. Willie Joseph MD Lower Extremity Ultrasound 01/04/17 1047 Signed Impressions: Service Date/Time: , January 04, 2017 11:16 - CONCLUSION: No evidence of deep venous thrombosis within the lower extremities. Heri Patino MD CT Angiography 01/04/17 1047 Signed Impressions: Service Date/Time: December 13:12 - CONCLUSION: 1. No evidence of pulmonary embolism. 2. [id number] bilateral pleural effusions right greater than left. 3. No pulmonary edema. Andrew French MD Objective Remarks awake and alert oriented x 3- good sats at room air anicteric no carotid bruit sternum- Parveena dressing in place chest tube in place right regular rhythm, 3/6 systolic murmur left sternal border abdomen soft, nontender extremities no edema, ++ peripheral pulses muro in place neuro exam- unremarkable Procedures 01/04/17 cardiac catheterization- non ischemic cardiomyopathy, severe LV dysfunction 01/11- Aortic valve replacement Urinary Catheter: Yes Assessment to: Continue Muro insert reason: Surgical/Invasive Proced Date of Insertion: Jan 11, 2017 A/P Problem List: (1) Acute systolic (congestive) heart failure ICD Code: I50.21 - Acute systolic (congestive) heart failure Status: Acute (2) Aortic stenosis ICD Code: I35.0 - Nonrheumatic aortic (valve) stenosis Status: Acute (3) Cardiomyopathy ICD Code: I42.9 - Cardiomyopathy, unspecified Status: Acute Assessment and Plan 61 years old male admitted for new onset CHF- clinically improved S/P aortic valve replacement due to severe #0 Acute systolic congestive heart failure, cardiomyopathy secondary to - Severe Aortic stenosis. - non ischemic CMP S/P cardiac catheterization: ECHO significant for severe aortic stenosis and ejection fraction of 5 percent. Cardiology and CV surgery ff Aspirin 81 mg daily. Amiodarone, Plavix. continue on Coreg. - adjust dose as BP tolerates . Lasix 40 mg po bid Alcohol abuse: Patient was counseled. [facility] protocol. patient admits to [place] in the past- 5 years ago. Now states occasionally drinks beer- 1-2 at the most. no DTs Cocaine abuse: Patient was counseled. States that his most recent use was 1 month ago. Urine drug screen is negative. DVT- ambulate, Increase activity. Lovenox 30 mg SQ daily PT/OT daily Problem Qualifiers (1) Aortic stenosis: Qualified Codes: I35.0 - Nonrheumatic aortic (valve) stenosis (2) Cardiomyopathy: Qualified Codes: I42.8 - Other cardiomyopathies Oly Mcelroy MD Jan 11, 2017 15:33
[2017-01-11] MEDS: ASPIRIN 81 MG CHEW TAB PO SCH (17:12)
[2017-01-11] MEDS: CLOPIDOGREL 75 MG TAB PO SCH (17:12)
[2017-01-11] MEDS: RESP: ALBUTEROL 2.5 MG/IPRATROPIUM 0.5 MG NEB (SCH) NEB ×2 (17:18→21:34)
[2017-01-11] MEDS: AMIODARONE 200 MG TAB PO SCH (21:18)
[2017-01-11] MEDS ORDERED: NOREPINEPHRINE 4 MG/D5W 250 ML IV PRN (22:15)
[2017-01-12] VITALS (15 sets, daily range): BP systolic 101–129; BP diastolic 61–86; PULSE 76–105; RESP 16–18; TEMP 97.5–98.5; O2SAT 91–97
[2017-01-12] MEDS: oxyCODONE/ACETAMINOPHEN 5 MG/325 MG TAB PO PRN ×3 (03:55→23:14)
[2017-01-12] MEDS: ACETAMINOPHEN 1000 MG/100 ML VIAL IV SCH ×2 (03:56→10:26)
[2017-01-12] MEDS: ceFAZolin 2 GM PREMIX 50 ML IV SCH ×3 (03:56→21:04)
[2017-01-12] MEDS: RESP: ALBUTEROL 2.5 MG/IPRATROPIUM 0.5 MG NEB (SCH) NEB ×4 (04:21→20:00)
[2017-01-12 04:24] LABS: MEAN CELL VOLUME 91.3 FL (80.0-100.0); MEAN CORPUSCULAR HEMOGLOBIN 29.8 PG (27.0-34.0); MEAN CORPUSCULAR HGB CONC 32.6 % (32.0-36.0); PLATELET COUNT 197 TH/MM3 (150-450); RED BLOOD COUNT 3.95 MIL/MM3 (4.50-5.90); RED CELL DISTRIBUTION WIDTH 14.6 % (11.6-17.2); REVIEW FLAG FINAL; WHITE BLOOD COUNT 7.8 TH/MM3 (4.0-11.0)
[2017-01-12 04:56] LABS: BICARBONATE 29.2 MEQ/L (21.0-32.0); MAGNESIUM 2.1 MG/DL (1.5-2.5); POTASSIUM 4.1 MEQ/L (3.5-5.1)
--- NOTE | 2017-01-12 05:56 | RADRPT ---
EXAM DATE/TIME: 01/12/2017 04:34 [facility] COMPARISON: CHEST SINGLE AP, January 11, 2017, 12:31. INDICATIONS : Post CABG, Shortness of breath MEDICAL HISTORY : None. SURGICAL HISTORY : CABG. ENCOUNTER: Subsequent ACUITY: 2 days PAIN SCORE: 7/10 LOCATION: Bilateral chest FINDINGS: A single view of the chest demonstrates the endotracheal tube and nasogastric have been removed. Righ t IJ central line in good position. Other catheter overlies the mid chest from the right lower chest is unchanged. The cardiomediastinal contours are unremarkable. Osseous structures are intact. Small bilateral pleural effusions. Numerous sternal wires CONCLUSION: Small bilateral pleural effusions. Catheter overlies the chest from a lower right aspect is unchanged . Central line in good position right IJ approach. Newton Bowser MD on January 12, 2017 at 5:54 Board Certified Radiologist. This report was verified electronically.
[2017-01-12] MEDS: PANTOPRAZOLE SOD 40 MG DELAYED RELEASE TAB PO SCH (06:08)
[2017-01-12] MEDS: FUROSEMIDE 40 MG/4 ML VIAL IV PUSH SCH (10:01)
[2017-01-12] MEDS: CLOPIDOGREL 75 MG TAB PO SCH (10:01)
[2017-01-12] MEDS: ASPIRIN 81 MG CHEW TAB PO SCH (10:03)
[2017-01-12] MEDS: SODIUM CHLORIDE 0.9% FLUSH 10 ML FLUSH IV FLUSH SCH ×2 (10:03→21:00)
[2017-01-12] MEDS: POTASSIUM CHLORIDE 20 MEQ CONTROLLED RELEASE TAB PO SCH (10:03)
[2017-01-12] MEDS: AMIODARONE 200 MG TAB PO SCH ×2 (10:05→21:03)
--- NOTE | 2017-01-12 10:29 | PD.CAR.PN ---
CVT Progress Note Subjective/Hospital Course: 61m/ presented to ED with palpitations, SOB x 1 month, with episode of syncope / + troponins, / pt underwent cardiac cath which showed EF 10-15%, nonobstructive CAD/ significant gradient upon pullback of more than 40mmhg, consistent with severe aortic stenosis fragility 2/4, sts 2.13% PMH: ETOH ECHO: LVSF severely reduced EF 20-25%, global LF dysfunction , mild MR, severe , trace AI, mild TR 01/09 pt scheduled for surgery on no evidence of withdrawal 01/10 doing well, no chest discomfort for surgery in am 01/11 surgery: 1. Mini-Sternotomy 2. Aortic Valve Replacement with a 27mm Mosaic Cinch II Tissue valve extubated after surgery 01/12 doing well, on nasal cannula, no evidence of withdrawal restarted on BB, on ASA restart low dose in am , if BP tolerates on daily lasix / PT/ OOB / Pulm toileting Objective: General: A&O x 3 SKIN: Warm and dry. prevena dressing to chest HEAD: Normocephalic. EYES: No scleral icterus. No injection or drainage. NECK: Supple, trachea midline. No JVD or lymphadenopathy. CARDIOVASCULAR: Regular rate and rhythm without murmurs, gallops, or rubs RESPIRATORY: Breath sounds equal bilaterally. No accessory muscle use. chest tube to wall suction, no air leak , drained 20cc/ 12 hrs GASTROINTESTINAL: Abdomen soft, non-tender, nondistended. MUSCULOSKELETAL: No cyanosis, or edema. BACK: Nontender without obvious deformity. No CVA tenderness. Date Time Temp Pulse Resp B/P (MAP) Pulse Ox O2 Delivery O2 Flow Rate FiO2 01/12/17 09:29 95 Nasal Cannula 4.00 01/12/17 07:00 97.5 91 17 107/73 (84) 96 114/61 (78) 01/12/17 07:00 96 Nasal Cannula 3.00 01/12/17 07:00 91 01/12/17 03:00 97.7 87 18 101/69 (80) 94 128/67 (87) 01/12/17 03:00 90 01/11/17 23:32 89 01/11/17 23:25 97.8 83 18 112/74 (87) 94 124/61 (82) 01/11/17 21:34 100 Nasal Cannula 3.00 01/11/17 20:00 98 Nasal Cannula 3.00 01/11/17 19:30 97.4 85 18 102/65 (77) 93 133/70 (91) 01/11/17 19:30 93 Nasal Cannula 4.00 01/11/17 19:29 16 01/11/17 19:00 84 01/11/17 19:00 88 Nasal Cannula 4.00 01/11/17 18:29 98.2 01/11/17 17:30 95 Nasal Cannula 2.00 01/11/17 17:20 95 Nasal Cannula 3.00 01/11/17 16:19 98.3 77 16 92/52 (65) 93 01/11/17 16:14 75 01/11/17 16:13 75 01/11/17 16:00 98 Nasal Cannula 3.00 01/11/17 15:00 98 Nasal Cannula 4.00 01/11/17 14:38 98.2 01/11/17 13:54 16 01/11/17 13:54 16 01/11/17 12:40 93 Nasal Cannula 4 01/11/17 12:40 93 Nasal Cannula 4.00 01/11/17 12:10 95 50 01/11/17 12:10 50 01/11/17 12:10 98.2 85 16 95/63 (74) 97 107/67 (80) 01/11/17 12:10 73 01/11/17 11:41 89 98/52 01/11/17 11:34 84 95/63 Labs: Laboratory Tests Test 01/12/17 04:10 White Blood Count 7.8 TH/MM3 (4.0-11.0) Red Blood Count 3.95 MIL/MM3 (4.50-5.90) Hemoglobin 11.8 GM/DL (13.0-17.0) Hematocrit 36.0 % (39.0-51.0) Mean Corpuscular Volume 91.3 FL (80.0-100.0) Mean Corpuscular Hemoglobin 29.8 PG (27.0-34.0) Mean Corpuscular Hemoglobin Concent 32.6 % (32.0-36.0) Red Cell Distribution Width 14.6 % (11.6-17.2) Platelet Count 197 TH/MM3 (150-450) Mean Platelet Volume 7.3 FL (7.0-11.0) Blood Urea Nitrogen 27 MG/DL (7-18) Creatinine 1.00 MG/DL (0.60-1.30) Random Glucose 112 MG/DL (74-106) Calcium Level 8.5 MG/DL (8.5-10.1) Magnesium Level 2.1 MG/DL (1.5-2.5) Sodium Level 138 MEQ/L (136-145) Potassium Level 4.1 MEQ/L (3.5-5.1) Chloride Level 103 MEQ/L (98-107) Carbon Dioxide Level 29.2 MEQ/L (21.0-32.0) Anion Gap 6 MEQ/L (5-15) Estimat Glomerular Filtration Rate 75 ML/MIN (>89) Result Diagram: 01/12/1740901/12/17409 Telemetry: NSR (1) Heart failure Plan: 61 y/o M severe symptomatic 2/4 Frail, STS ~2%. Awaiting 2nd CT surgery opinion for TAVR vs AVR. Recommendations: Medical therapy. CT surgery evaluation (2) Aortic stenosis (3) S/P AVR (aortic valve replacement) Plan: on ASA plavix, BB pulm toileting nebs ezpap , OOB eval for HHC at discharge (4) ETOH abuse (5) Cardiomyopathy Plan: EF 15-20% 3 resume micheal when BP allows continue diuresis +3 kg (6) Acute systolic (congestive) heart failure Problem Qualifiers (1) Heart failure: Qualified Codes: I50.23 - Acute on chronic systolic (congestive) heart failure (2) Aortic stenosis: Qualified Codes: I35.0 - Nonrheumatic aortic (valve) stenosis (3) Cardiomyopathy: Qualified Codes: I42.8 - Other cardiomyopathies Pily Winkler Jan 12, 2017 10:29
[2017-01-12] MEDS ORDERED: GLUCAGON 1 MG/ML VIAL OTHER PRN (10:30)
[2017-01-12] MEDS ORDERED: BISACODYL 10 MG SUPP RECTAL PRN (10:30)
[2017-01-12] MEDS ORDERED: SOD PHOSPHATE/SOD BIPHOSPHATE (ADULT) ENEMA 133ML RECTAL PRN (10:30)
[2017-01-12] MEDS ORDERED: DEXTROSE 50% IN WATER 50 ML VIAL(D50) IV PRN (10:30)
--- NOTE | 2017-01-12 10:38 | HHI.FF ---
Face to Face Verification Diagnosis: (1) New onset of congestive heart failure (2) Aortic stenosis (3) Cardiomyopathy (4) Acute systolic (congestive) heart failure (5) S/P AVR (aortic valve replacement) (6) ETOH abuse Home Health Nursing Order: Signs/symptoms of disease process Medication education-adverse effect Wound care and dressing changes Nursing assessment with vital signs Instructions: Heart and Vascular Surgery patients *Special attention to sternal dressing Mandatory frequency Assess and evaluation, 4 days in a row The next week 3X week 2 times a week for 4 weeks 1 time a week for 5 weeks Schedule Heart and Vascular patients for full 60 day certification period Initial visit Review Open Heart Surgery Discharge Instructions (Sternal precautions, Activity, Elastic hose, Incision care, Driving, Incentive spirometry, Smoking, [place], Work and other) Need Betadine to paint incision Medication reconciliation Importance of follow up care/ check on appointments Make calendar record temperature daily When to call [facility] nurse, review instructions, phone list Incentive Spirometry, demonstration Visit 1- Begin discharge instruction for patient family and/ or caregiver using teach back method- Signs and symptoms of infection Disease characteristics Medicines and side effects Foods and nutrition/ appetite Infection control/ hand washing/ hygiene Visit 2- Continue teaching Discharge instructions- include additional information on smoking cessation , sternal dressing (sternal vac) Visit 3- Continue teaching- Cough and deep breathing, incision monitoring. Choose my plate Visit 4- Continue teaching- Discuss limitations Discuss how they are feeling Discuss progress toward goals Remaining visits- continue teaching and monitoring PREVENA Single Use Negative Wound Therapy System Caregiver Instruction Sheet 1. A Prevena dressing system was applied to the chest incision during surgery , to promote wound healing. It works via a suction device (negative pressure wound therapy) to remove low to moderate levels of exudate (drainage) and infectious materials. We recommend that the device stay in place for up to seven days, from day of surgery. 2. Day of Surgery____/ Day of Removal ____01/18/17 3. The dressing should only be removed by a health youth career specialist. Please arrange removal of device to coincide with Home Health visit and or with Nursing staff at Rehab 4. If skin reddening or irritation of skin occurs, or excessive drainage, please notify the Cardiovascular Surgeons office at [phone]. 5. Light showering is permissible; however the pump should be disconnected and placed in safe location, where it will not get wet. The dressing should not be exposed to direct spray or submerged in water. No bath tub / shower only. Ensure the end of the tubing attached to the dressing is facing down so that water does not enter the top of the tube. 6. To remove Prevena dressing: press purple button to turn off device / remove the suction. Then disconnect the tubing from the pump. The fixation strips should be stretched away from the skin and the dressing lifted at one corner and peeled back until it has been fully removed. 7. After removal, it is ok to shower daily using liquid dial soap and clean wash cloth, rinse and pat dry, and leave incision open to air dry. For any concerns regarding Prevena dressing, and or wounds, please contact Hollie Ríos, patient navigator at [phone] or notify the Cardiovascular Surgeons office at [phone]. Incentive spirometry Q1 hr x 10, while awake, also use acapella device hourly whole awake Sternal Breast Bone Precautions: NO pushing or pulling, ( pt must use sternal pillow to support chest with all activities and with coughing ( takes up to 3 months breast bone to heal ) Daily incision care: ok to shower daily, no tub bath. Wash all incisions with liquid dial soap, clean wash cloth to each site, rinse and pat dry. Observe for any signs of infection, such as drainage which is dark yellow, chu, green or foul smelling. Immediately report to the surgeon any drainage from the chest incision, or legs, and for any abnormal drainage from the chest tube sites. Notify surgeon if any temp >101.5 degrees F. When specialty dressing removed/ or if you do not have one, continue to shower daily as above, then rinse and pat incision dry and paint with betadine daily x 5 days. Allow steri strips to fall off if you have any. Avoid lotions, creams, salves, oils, etc. for the first month Please see attached forms for additional instructions regarding post Open Heart specialty wound vacuum dressings. ENEIDA or Prevena , Dressing to be removed by Nursing staff on __01/18/17 F/U appointment: as per DC instructions: PCP in 2 weeks, CV surgeon 2 weeks, Lens Grinder 3-4 weeks For any questions regarding incisions/ dressing / meds / post op care or above Symptoms, Sunday 8am-5pm Heart & Vascular Surgery Office ( Dr. Szymanski & Dr. Ruby), After Hours / Nights (5pm -8am) Weekends and Holidays Please call [facility] ([facility]) Charge Nurse I have seen patient Fly Gil on 01/12/17. My clinical findings support the need for the requested home health care services because: Deconditioned w/ increased weakness I certify that my clinical findings support that this patient is homebound because: Post-op weakness Pily Winkler Jan 12, 2017 10:38
[2017-01-12] MEDS: CARVEDILOL 3.125 MG TAB PO SCH ×2 (11:02→21:03)
--- NOTE | 2017-01-12 11:54 | EKG ---
Date Performed: 01/12/2017 Time Performed: 04:13:58 PTAGE: 61 years EKG: Sinus rhythm Prolonged QT interval LVH with secondary repolarization abnormality Extensive ST-T changes may be du e to hypertrophy and/or ischemia Abnormal ECG Compared to prior tracing no significant change PREVIOUS TRACING : 01/05/2017 06.22 DOCTOR: Russell Jimenez Interpretating Date/Time 01/12/2017 11:47:54
[2017-01-12] MEDS: INSULIN ASPART SUPPLEMENTAL SCALE SQ SCH ×3 (14:00→21:51)
[2017-01-12] MEDS: DOCUSATE SODIUM 100 MG CAP PO SCH ×2 (16:15→21:03)
[2017-01-12] MEDS: SENNOSIDES 8.6 MG TAB PO SCH (21:03)
[2017-01-13] VITALS (29 sets, daily range): BP systolic 100–118; BP diastolic 54–78; PULSE 59–108; RESP 18–20; TEMP 98.2–98.8; O2SAT 92–98
[2017-01-13] MEDS: INSULIN ASPART SUPPLEMENTAL SCALE SQ SCH ×6 (02:00→20:28)
[2017-01-13] MEDS: RESP: ALBUTEROL 2.5 MG/IPRATROPIUM 0.5 MG NEB (SCH) NEB ×4 (04:00→20:55)
[2017-01-13] MEDS: PANTOPRAZOLE SOD 40 MG DELAYED RELEASE TAB PO SCH (05:20)
[2017-01-13 06:13] LABS: BASOPHIL % 0.5 % (0.0-2.0); EOSINOPHIL # 0.1 TH/MM3 (0-0.4); EOSINOPHIL % 1.4 % (0.0-4.0); HEMATOCRIT 32.6 % (39.0-51.0); HEMO FLAGS DIFF FINAL; LYMPH % 22.3 % (9.0-44.0); LYMPHOCYTE # 1.7 TH/MM3 (1.0-4.8); MEAN CELL VOLUME 91.7 FL (80.0-100.0); MEAN CORPUSCULAR HEMOGLOBIN 30.6 PG (27.0-34.0); MEAN CORPUSCULAR HGB CONC 33.4 % (32.0-36.0); MONO % 11.6 % (0.0-8.0); NEUT % 64.2 % (16.0-70.0); PLATELET COUNT 179 TH/MM3 (150-450); RED BLOOD COUNT 3.56 MIL/MM3 (4.50-5.90); RED CELL DISTRIBUTION WIDTH 14.3 % (11.6-17.2); WHITE BLOOD COUNT 7.8 TH/MM3 (4.0-11.0)
[2017-01-13 07:07] LABS: BICARBONATE 29.4 MEQ/L (21.0-32.0); MAGNESIUM 1.9 MG/DL (1.5-2.5); POTASSIUM 3.9 MEQ/L (3.5-5.1)
[2017-01-13] MEDS: POTASSIUM CHLORIDE 20 MEQ CONTROLLED RELEASE TAB PO SCH (10:02)
[2017-01-13] MEDS: ASPIRIN 81 MG CHEW TAB PO SCH (10:02)
[2017-01-13] MEDS: CLOPIDOGREL 75 MG TAB PO SCH (10:03)
[2017-01-13] MEDS: DOCUSATE SODIUM 100 MG CAP PO SCH ×2 (10:03→20:26)
[2017-01-13] MEDS: MULTIVITAMINS/MINERALS THERAPEUTIC TAB PO SCH (10:03)
[2017-01-13] MEDS: CARVEDILOL 3.125 MG TAB PO SCH ×2 (10:03→20:26)
[2017-01-13] MEDS: AMIODARONE 200 MG TAB PO SCH ×2 (10:04→20:27)
[2017-01-13] MEDS: MAGNESIUM HYDROXIDE SUSP 30 ML CUP PO SCH (10:04)
[2017-01-13] MEDS: POLYETHYLENE GLYCOL 17 GM PKG PO SCH (10:04)
[2017-01-13] MEDS: SODIUM CHLORIDE 0.9% FLUSH 10 ML FLUSH IV FLUSH SCH ×2 (10:05→20:27)
[2017-01-13] MEDS: FUROSEMIDE 40 MG/4 ML VIAL IV PUSH SCH (10:05)
--- NOTE | 2017-01-13 10:23 | PD.CAR.PN ---
CVT Progress Note CVT: POD #: 2 Subjective/Hospital Course: 61m/ presented to ED with palpitations, SOB x 1 month, with episode of syncope / + troponins, / pt underwent cardiac cath which showed EF 10-15%, nonobstructive CAD/ significant gradient upon pullback of more than 40mmhg, consistent with severe aortic stenosis fragility 2/, sts 2.13% PMH: ETOH ECHO: LVSF severely reduced EF 20-25%, global LF dysfunction , mild MR, severe , trace AI, mild TR 01/09 pt scheduled for surgery on no evidence of withdrawal 01/10 doing well, no chest discomfort for surgery in am 01/11 surgery: 1. Mini-Sternotomy 2. Aortic Valve Replacement with a 27mm Mosaic Cinch II Tissue valve extubated after surgery 01/12 doing well, on nasal cannula, no evidence of withdrawal restarted on BB, on ASA restart low dose in am , if BP tolerates on daily lasix / PT/ OOB / Pulm toileting 01/13/17 No complaints, doing well Objective: Vital Signs Date Time Temp Pulse Resp B/P (MAP) Pulse Ox O2 Delivery O2 Flow Rate FiO2 01/13/17 09:01 101 01/13/17 08:00 104 01/13/17 07:30 94 Room Air 01/13/17 07:30 93 01/13/17 07:00 98.4 93 18 115/76 (89) 94 01/13/17 06:00 89 01/13/17 05:59 88 01/13/17 04:00 94 01/13/17 03:24 98.2 103 114/73 (87) 92 01/13/17 03:00 105 01/13/17 02:00 106 01/13/17 01:00 106 01/13/17 00:00 102 01/12/17 23:37 97.7 91 113/75 (88) 97 01/12/17 23:00 105 01/12/17 22:00 102 01/12/17 21:58 94 Nasal Cannula 1.50 01/12/17 21:00 100 01/12/17 20:00 100 01/12/17 20:00 Nasal Cannula 3.00 01/12/17 20:00 98.4 103 129/86 (100) 95 01/12/17 19:00 105 01/12/17 18:00 94 01/12/17 17:00 92 01/12/17 16:00 91 01/12/17 15:24 98.2 94 18 110/81 (91) 97 01/12/17 11:00 98.5 94 16 110/77 (88) 95 Arterial Line 01/12/17 11:00 94 01/12/17 11:00 98.5 94 16 110/77 (88) 95 01/12/17 11:00 94 01/12/17 11:00 95 Nasal Cannula 3.00 Labs: Laboratory Tests Test 01/13/17 06:00 White Blood Count 7.8 TH/MM3 (4.0-11.0) Red Blood Count 3.56 MIL/MM3 (4.50-5.90) Hemoglobin 10.9 GM/DL (13.0-17.0) Hematocrit 32.6 % (39.0-51.0) Mean Corpuscular Volume 91.7 FL (80.0-100.0) Mean Corpuscular Hemoglobin 30.6 PG (27.0-34.0) Mean Corpuscular Hemoglobin Concent 33.4 % (32.0-36.0) Red Cell Distribution Width 14.3 % (11.6-17.2) Platelet Count 179 TH/MM3 (150-450) Mean Platelet Volume 8.2 FL (7.0-11.0) Neutrophils (%) (Auto) 64.2 % (16.0-70.0) Lymphocytes (%) (Auto) 22.3 % (9.0-44.0) Monocytes (%) (Auto) 11.6 % (0.0-8.0) Eosinophils (%) (Auto) 1.4 % (0.0-4.0) Basophils (%) (Auto) 0.5 % (0.0-2.0) Neutrophils # (Auto) 5.0 TH/MM3 (1.8-7.7) Lymphocytes # (Auto) 1.7 TH/MM3 (1.0-4.8) Monocytes # (Auto) 0.9 TH/MM3 (0-0.9) Eosinophils # (Auto) 0.1 TH/MM3 (0-0.4) Basophils # (Auto) 0.0 TH/MM3 (0-0.2) CBC Comment DIFF FINAL Differential Comment Blood Urea Nitrogen 21 MG/DL (7-18) Creatinine 0.91 MG/DL (0.60-1.30) Random Glucose 94 MG/DL (74-106) Calcium Level 8.8 MG/DL (8.5-10.1) Magnesium Level 1.9 MG/DL (1.5-2.5) Sodium Level 139 MEQ/L (136-145) Potassium Level 3.9 MEQ/L (3.5-5.1) Chloride Level 101 MEQ/L (98-107) Carbon Dioxide Level 29.4 MEQ/L (21.0-32.0) Anion Gap 9 MEQ/L (5-15) Estimat Glomerular Filtration Rate 84 ML/MIN (>89) Result Diagram: 01/13/17 0600 01/13/17 06 Cardiovascular: RRR Telemetry: NSR Pulmonary: CTA GI/: NABS Incision: dry and intact CT: ~150ml since this AM Plan: Continue chest tubes one more day Diurese Encourage ambulation (1) Heart failure Plan: 61 y/o M severe symptomatic 2/4 Frail, STS ~2%. Awaiting 2nd CT surgery opinion for TAVR vs AVR. Recommendations: Medical therapy. CT surgery evaluation (2) Aortic stenosis (3) S/P AVR (aortic valve replacement) Plan: on ASA plavix, BB pulm toileting nebs ezpap , OOB eval for HHC at discharge (4) ETOH abuse (5) Cardiomyopathy Plan: EF 15-20% 3 resume micheal when BP allows continue diuresis +3 kg (6) Acute systolic (congestive) heart failure Problem Qualifiers (1) Heart failure: Qualified Codes: I50.23 - Acute on chronic systolic (congestive) heart failure (2) Aortic stenosis: Qualified Codes: I35.0 - Nonrheumatic aortic (valve) stenosis (3) Cardiomyopathy: Qualified Codes: I42.8 - Other cardiomyopathies Kim Ruby MD Jan 13, 2017 10:22
[2017-01-13] MEDS: oxyCODONE/ACETAMINOPHEN 5 MG/325 MG TAB PO PRN ×2 (11:19→20:27)
[2017-01-13] MEDS: MAGNESIUM SULFAT 1 GM PREMIX 100 ML x2 bags IV SCH ×2 (11:20→12:39)
[2017-01-13] MEDS: SENNOSIDES 8.6 MG TAB PO SCH (20:26)
[2017-01-14] VITALS (27 sets, daily range): BP systolic 105–126; BP diastolic 72–82; PULSE 79–99; RESP 16–22; TEMP 97.9–99.2; O2SAT 94–98
[2017-01-14] MEDS: oxyCODONE/ACETAMINOPHEN 5 MG/325 MG TAB PO PRN ×2 (02:54→21:53)
[2017-01-14] MEDS: PANTOPRAZOLE SOD 40 MG DELAYED RELEASE TAB PO SCH (05:25)
[2017-01-14] MEDS: INSULIN ASPART SUPPLEMENTAL SCALE SQ SCH ×4 (05:25→21:00)
[2017-01-14] MEDS: RESP: ALBUTEROL 2.5 MG/IPRATROPIUM 0.5 MG NEB (SCH) NEB ×2 (08:05→13:34)
[2017-01-14] MEDS: FUROSEMIDE 40 MG/4 ML VIAL IV PUSH SCH (09:36)
[2017-01-14] MEDS: AMIODARONE 200 MG TAB PO SCH ×2 (09:37→21:50)
[2017-01-14] MEDS: CLOPIDOGREL 75 MG TAB PO SCH (09:37)
[2017-01-14] MEDS: DOCUSATE SODIUM 100 MG CAP PO SCH ×2 (09:37→21:00)
[2017-01-14] MEDS: POLYETHYLENE GLYCOL 17 GM PKG PO SCH (09:37)
[2017-01-14] MEDS: MAGNESIUM HYDROXIDE SUSP 30 ML CUP PO SCH (09:37)
[2017-01-14] MEDS: ASPIRIN 81 MG CHEW TAB PO SCH (09:37)
[2017-01-14] MEDS: MULTIVITAMINS/MINERALS THERAPEUTIC TAB PO SCH (09:37)
[2017-01-14] MEDS: SODIUM CHLORIDE 0.9% FLUSH 10 ML FLUSH IV FLUSH SCH ×2 (09:38→21:51)
[2017-01-14] MEDS: CARVEDILOL 3.125 MG TAB PO SCH ×2 (09:42→21:50)
[2017-01-14] MEDS: POTASSIUM CHLORIDE 20 MEQ CONTROLLED RELEASE TAB PO SCH (09:42)
--- NOTE | 2017-01-14 12:26 | PD.CAR.PN ---
CVT Progress Note CVT: POD #: 3 Subjective/Hospital Course: 61m/ presented to ED with palpitations, SOB x 1 month, with episode of syncope / + troponins, / pt underwent cardiac cath which showed EF 10-15%, nonobstructive CAD/ significant gradient upon pullback of more than 40mmhg, consistent with severe aortic stenosis fragility 2/4, sts 2.13% PMH: ETOH ECHO: LVSF severely reduced EF 20-25%, global LF dysfunction , mild MR, severe , trace AI, mild TR 01/09 pt scheduled for surgery on no evidence of withdrawal 01/10 doing well, no chest discomfort for surgery in am 01/11 surgery: 1. Mini-Sternotomy 2. Aortic Valve Replacement with a 27mm Mosaic Cinch II Tissue valve extubated after surgery 01/12 doing well, on nasal cannula, no evidence of withdrawal restarted on BB, on ASA restart low dose in am , if BP tolerates on daily lasix / PT/ OOB / Pulm toileting 01/13/17 No complaints, doing well 01/14/17 Doing well, no complaints Objective: Vital Signs Date Time Temp Pulse Resp B/P (MAP) Pulse Ox O2 Delivery O2 Flow Rate FiO2 01/14/17 11:30 98.8 89 16 114/81 (92) 95 01/14/17 11:30 90 01/14/17 11:30 96 Room Air 01/14/17 10:01 94 01/14/17 09:59 94 01/14/17 09:30 93 01/14/17 08:46 91 01/14/17 08:00 94 21 01/14/17 07:30 96 Room Air 01/14/17 07:30 98.4 84 16 105/72 (83) 96 01/14/17 07:30 83 01/14/17 06:31 82 01/14/17 05:20 79 01/14/17 04:22 81 01/14/17 03:30 86 01/14/17 03:30 95 Room Air 01/14/17 03:30 98.7 88 16 109/77 (88) 95 01/14/17 02:23 86 01/14/17 01:15 95 01/14/17 00:53 87 01/13/17 23:48 93 Room Air 01/13/17 23:48 98.8 94 18 112/76 (88) 93 01/13/17 23:21 87 01/13/17 22:00 89 01/13/17 21:00 92 01/13/17 20:55 97 Nasal Cannula 3.00 01/13/17 20:15 94 Room Air 01/13/17 20:15 98.6 96 20 118/78 (91) 94 01/13/17 20:15 105 01/13/17 18:05 104 01/13/17 17:04 103 01/13/17 16:01 97 01/13/17 15:10 98 Room Air 01/13/17 15:01 95 01/13/17 15:00 98.4 98 18 108/72 (84) 98 01/13/17 14:00 98 01/13/17 13:16 95 01/13/17 12:40 18 01/13/17 12:30 96 Result Diagram: 01/13/17 0600 01/13/17 0600 Cardiovascular: RRR Telemetry: NSR Pulmonary: CTA GI/: NABS, NT Incision: dry and intact Plan: D/C chest tubes Encourage ambulation Up to chair Stim BM (1) Heart failure Plan: 61 y/o M severe symptomatic 2/4 Frail, STS ~2%. Awaiting 2nd CT surgery opinion for TAVR vs AVR. Recommendations: Medical therapy. CT surgery evaluation (2) Aortic stenosis (3) S/P AVR (aortic valve replacement) Plan: on ASA plavix, BB pulm toileting nebs ezpap , OOB eval for HHC at discharge (4) ETOH abuse (5) Cardiomyopathy Plan: EF 15-20% 3 resume micheal when BP allows continue diuresis +3 kg (6) Acute systolic (congestive) heart failure Problem Qualifiers (1) Heart failure: Qualified Codes: I50.23 - Acute on chronic systolic (congestive) heart failure (2) Aortic stenosis: Qualified Codes: I35.0 - Nonrheumatic aortic (valve) stenosis (3) Cardiomyopathy: Qualified Codes: I42.8 - Other cardiomyopathies Kim Ruby MD Jan 14, 2017 12:26
[2017-01-14] MEDS: SENNOSIDES 8.6 MG TAB PO SCH (21:00)
[2017-01-15] VITALS (16 sets, daily range): BP systolic 106–123; BP diastolic 75–81; PULSE 78–96; RESP 16–20; TEMP 97.6–98.3; O2SAT 95–99
[2017-01-15] MEDS: oxyCODONE/ACETAMINOPHEN 5 MG/325 MG TAB PO PRN (04:41)
[2017-01-15] MEDS: PANTOPRAZOLE SOD 40 MG DELAYED RELEASE TAB PO SCH (04:41)
--- NOTE | 2017-01-15 04:57 | RADRPT ---
EXAM DATE/TIME: 01/15/2017 04:28 [facility] COMPARISON: CHEST SINGLE AP, January 12, 2017, 4:34. INDICATIONS : Shortness of breath, possible pulmonary disease. MEDICAL HISTORY : None. SURGICAL HISTORY : CABG. ENCOUNTER: Subsequent ACUITY: 4 - 6 days PAIN SCORE: 0/10 LOCATION: Bilateral chest FINDINGS: Portable AP view of the chest demonstrate stable enlargement of the cardiac silhouette in this patien t post median sternotomy. There is a small left basilar pleural-parenchymal opacity. No pneumothorax is visualized. CONCLUSION: Stable small left pleural effusion with associated volume loss and/or airspace consolidation. Willie Person MD on January 15, 2017 at 4:55 Board Certified Radiologist. This report was verified electronically.
[2017-01-15] MEDS: INSULIN ASPART SUPPLEMENTAL SCALE SQ SCH ×2 (06:07→11:00)
[2017-01-15] MEDS ORDERED: LISINOPRIL 5 MG TAB PO SCH (09:00)
[2017-01-15] MEDS: POLYETHYLENE GLYCOL 17 GM PKG PO SCH (09:06)
[2017-01-15] MEDS: SODIUM CHLORIDE 0.9% FLUSH 10 ML FLUSH IV FLUSH SCH (09:06)
[2017-01-15] MEDS: DOCUSATE SODIUM 100 MG CAP PO SCH (09:06)
[2017-01-15] MEDS: MAGNESIUM HYDROXIDE SUSP 30 ML CUP PO SCH (09:06)
[2017-01-15] MEDS: AMIODARONE 200 MG TAB PO SCH (09:07)
[2017-01-15] MEDS: MULTIVITAMINS/MINERALS THERAPEUTIC TAB PO SCH (09:07)
[2017-01-15] MEDS: CARVEDILOL 3.125 MG TAB PO SCH (09:07)
[2017-01-15] MEDS: POTASSIUM CHLORIDE 20 MEQ CONTROLLED RELEASE TAB PO SCH (09:07)
[2017-01-15] MEDS: CLOPIDOGREL 75 MG TAB PO SCH (09:07)
[2017-01-15] MEDS: ASPIRIN 81 MG CHEW TAB PO SCH (09:08)
[2017-01-15] MEDS: FUROSEMIDE 40 MG/4 ML VIAL IV PUSH SCH (09:08)
[2017-01-15 11:10] LABS: BICARBONATE 30.6 MEQ/L (21.0-32.0); MAGNESIUM 2.2 MG/DL (1.5-2.5); POTASSIUM 4.1 MEQ/L (3.5-5.1)
[2017-01-15] MEDS ORDERED: DOCU1CAP39 PO (12:00)
[2017-01-15] MEDS ORDERED: OXYC1TAB63 PO (12:00)
[2017-01-15] MEDS ORDERED: LISI-519 PO (12:00)
[2017-01-15] MEDS ORDERED: PLAV75TA29 PO (12:00)
[2017-01-15] MEDS ORDERED: AMIO200T PO (12:00)
[2017-01-15] MEDS ORDERED: ASPI81CH25 PO (12:00)
[2017-01-15] MEDS ORDERED: CARV3.125 PO (12:00)
[2017-01-15] MEDS ORDERED: THERM PO (12:00)
[2017-01-15] MEDS ORDERED: FURO1TAB60 PO (12:01)
[2017-01-15] MEDS ORDERED: POTA-163 PO (12:01)
--- NOTE | 2017-01-15 12:28 | HHI.DS ---
Discharge Summary Admission Date Jan 04, 2017 at 13:49 Admitting Diagnosis New Onset CHF, SOB. (1) Acute systolic (congestive) heart failure ICD Codes: I50.21 - Acute systolic (congestive) heart failure Status: Acute (2) Aortic stenosis ICD Codes: I35.0 - Nonrheumatic aortic (valve) stenosis Status: Acute (3) Cardiomyopathy ICD Codes: I42.9 - Cardiomyopathy, unspecified Status: Acute Procedures 1. Mini-Sternotomy 01/11 2. Aortic Valve Replacement with a 27mm Mosaic Cinch II Tissue valve Brief History 61m/ presented to ED with palpitations, SOB x 1 month, with episode of syncope / + troponins, / pt underwent cardiac cath which showed EF 10-15%, nonobstructive CAD/ significant gradient upon pullback of more than 40mmhg, consistent with severe aortic stenosis fragility 2/, sts 2.13% PMH: ETOH ECHO: LVSF severely reduced EF 20-25%, global LF dysfunction , mild MR, severe , trace AI, mild TR CBC/BMP: 01/13/17 0600 01/15/17 0950 Significant Findings Laboratory Tests Test 01/13/17 06:00 01/15/17 09:50 Red Blood Count 3.56 MIL/MM3 (4.50-5.90) Hemoglobin 10.9 GM/DL (13.0-17.0) Hematocrit 32.6 % (39.0-51.0) Monocytes (%) (Auto) 11.6 % (0.0-8.0) Blood Urea Nitrogen 21 MG/DL (7-18) Estimat Glomerular Filtration Rate 84 ML/MIN (>89) 86 ML/MIN (>89) Chloride Level 97 MEQ/L (98-107) Imaging Last Impressions Chest X-Ray 01/15/17 0000 Signed Impressions: Service Date/Time: Sunday, January 15, 2017 04:28 - CONCLUSION: Stable small left pleural effusion with associated volume loss and/or airspace consolidation. Willie Person MD Chest CTA 01/05/17 0000 Signed Impressions: Service Date/Time: Friday, January 06, 2017 17:28 - CONCLUSION: Small bilateral pleural effusions with dense calcifications of aortic valve and measurements as above. Jim Gunderson MD Carotid Artery Ultrasound 01/05/17 0000 Signed Impressions: Service Date/Time: Thursday, January 05, 2017 19:12 - CONCLUSION: No significant plaque or stenosis of either carotid. Willie Joseph MD Lower Extremity Ultrasound 01/04/171046 Signed Impressions: Service Date/Time: December 11:16 - CONCLUSION: No evidence of deep venous thrombosis within the lower extremities. Heri Patino MD CT Angiography 01/04/171046 Signed Impressions: Service Date/Time: December 13:12 - CONCLUSION: 1. No evidence of pulmonary embolism. 2. [id number] bilateral pleural effusions right greater than left. 3. No pulmonary edema. Andrew French MD PE at Discharge GENERAL: SKIN: Warm and dry.,prevena to chest HEAD: Normocephalic. EYES: No scleral icterus. No injection or drainage. NECK: Supple, trachea midline. No JVD or lymphadenopathy. CARDIOVASCULAR: Regular rate and rhythm without murmurs, gallops, or rubs. RESPIRATORY: Breath sounds equal bilaterally. No accessory muscle use. GASTROINTESTINAL: Abdomen soft, non-tender, nondistended. MUSCULOSKELETAL: No cyanosis, or edema. BACK: Nontender without obvious deformity. No CVA tenderness. Hospital Course 01/09 pt scheduled for surgery on no evidence of withdrawal 01/10 doing well, no chest discomfort for surgery in am 01/11 surgery: 1. Mini-Sternotomy 2. Aortic Valve Replacement with a 27mm Mosaic Cinch II Tissue valve extubated after surgery 01/12 doing well, on nasal cannula, no evidence of withdrawal restarted on BB, on ASA restart low dose in am , if BP tolerates on daily lasix / PT/ OOB / Pulm toileting 01/13/17 No complaints, doing well 01/14/17 Doing well, no complaints 01/15 pt on room air on low dose BB and Chris, continue lasix po stable for dc home with [facility] Pt Condition on Discharge: Good Discharge Disposition: Disch w/ Home Health Serv Discharge Instructions DIET: Follow Instructions for: Heart Healthy Diet, Low Sodium Diet Activities you can perform: Full Weight Bearing, Shower Only-No Bath Activities to avoid: Strenuous Activity, Driving Additional Activity Instructio: no lifting > 8lbs or gallon of milk Follow up Referrals: Surgical New Orders: BASIC METABOLIC PROF - 2 Weeks MAGNESIUM (MG) - 2 Weeks New Medications: Furosemide (Lasix) 40 Mg Tab 40 MG PO DAILY for edema , #30 TAB 0 Refills Potassium Chloride ER (Potassium Chloride ER) 20 Meq Tab 20 MEQ PO DAILY for Electrolyte Replacement, #30 TAB 0 Refills Amiodarone (Amiodarone) 200 Mg Tab 200 MG PO Q12HR for hear rhythm, #28 TAB 0 Refills prevent heart rhythm irregularity / only for 2 weeks then stop Aspirin (Aspirin Low Strength) 81 Mg Chew 81 MG PO DAILY for Blood Clot Prevention, #100 EA 2 Refills Carvedilol (Coreg) 3.125 Mg Tab 3.125 MG PO BID for Blood Pressure Management, #60 TAB 2 Refills Clopidogrel (Plavix) 75 Mg Tab 75 MG PO DAILY for Blood Clot Prevention, #30 TAB 2 Refills Docusate Sodium (Dok) 100 Mg Cap 100 MG PO BID for Constipation, #30 CAP 0 Refills Lisinopril (Lisinopril) 5 Mg Tab 2.5 MG PO DAILY for cardiomyopathy, #30 TAB 2 Refills Multiple Vitamins W/ Minerals (Thera M Plus) 1 Tab 1 TAB PO DAILY for multi vitamin, #30 TAB Oxycodone-Acetaminophen (Oxycodone-Acetaminophen) 5-325 mg Tab 1 TAB PO Q6H PRN for PAIN SCALE 1 TO 5, #40 TAB 0 Refills Pily Winkler Jan 15, 2017 12:28
== END 2017-01-15 14:45 | disposition home health service (06) | DRG 216 ==
LOC: NEPC 10:37 → NEDH 13:49 → HCIS 21:40 → HCVR 01-11 12:29 → HCIN 01-12 14:24
PROVIDERS: ADMIT Thoracic Surgery (Cardiothoracic Vascular Surgery); ATTEND Thoracic Surgery (Cardiothoracic Vascular Surgery)
PROC: 4A023N7 Measurement of Cardiac Sampling and Pressure, Left Heart, Percutaneous Approach (ICD-10-PCS; 2017-01-04)
PROC: B2111ZZ Fluoroscopy of Multiple Coronary Arteries using Low Osmolar Contrast (ICD-10-PCS; 2017-01-04)
PROC: B2151ZZ Fluoroscopy of Left Heart using Low Osmolar Contrast (ICD-10-PCS; 2017-01-04)
PROC: B41F1ZZ Fluoroscopy of Right Lower Extremity Arteries using Low Osmolar Contrast (ICD-10-PCS; 2017-01-04)
PROC: 5A1221Z Performance of Cardiac Output, Continuous (ICD-10-PCS; 2017-01-11)
PROC: B246ZZ4 Ultrasonography of Right and Left Heart, Transesophageal (ICD-10-PCS; 2017-01-11)
PROC: 0W9930Z Drainage of Right Pleural Cavity with Drainage Device, Percutaneous Approach (ICD-10-PCS; 2017-01-11)
PROC: 02RF0KZ Replacement of Aortic Valve with Nonautologous Tissue Substitute, Open Approach (ICD-10-PCS; principal; 2017-01-11 07:01)
DX: I35.0 Nonrheumatic aortic (valve) stenosis (principal); I50.23 Acute on chronic systolic (congestive) heart failure; I42.8 Other cardiomyopathies; F10.20 Alcohol dependence, uncomplicated; I35.1 Nonrheumatic aortic (valve) insufficiency; R00.0 Tachycardia, unspecified; I11.0 Hypertensive heart disease with heart failure
CPT/HCPCS: 36430; 71010; 71275; 74174; 76937; 80048; 80053; 80061; 80307; 81001; 82550; 82948; 83036; 83735; 83880; 84443; 84484; 85014; 85025; 85027; 85610; 85730; 86850; 86900; 86901; 86920; 87015; 87070; 87102; 87116; 87205; 87206; 87641; 88305; 88311; 93005; 93306; 93318; 93350; 93458; 93880; 93970; 94002; 94010; 94150; 94640; 94664; 94667; 94668; 96360; C1769; C1893; G0269; J0131; J0171; J0461; J0690; J1250; J1644; J1650; J1815; J1885; J1940; J2150; J2250; J2260; J2370; J2720; J3010; J3370; J3475; J3480; J7040; J7050; J7120; P9016; P9047; Q9967

== ENCOUNTER 2017-05-16 09:26 | Emergency (ER) | payer MEDICAID ==
[~2017-05-16] VITALS: Ht 180.3 cm; Wt 79.0 kg
[~2017-05-16 09:26] MED LIST: AMIO200T PO; ASPI81CH25 PO; CARV3.125 PO; DOCU1CAP39 PO; FURO1TAB60 PO; LISI-519 PO; OXYC1TAB63 PO; PLAV75TA29 PO; POTA-163 PO; THERM PO
[2017-05-16 09:29] VITALS: BP 179/98; PULSE 67; RESP 22; TEMP 97.3; O2SAT 98
--- NOTE | 2017-05-16 10:23 | PD ---
HPI Chief Complaint: Nosebleed Time Seen by Provider: 09:36 Travel History International Travel<30 days: No Contact w/Intl Traveler<30days: No Traveled to known affect area: No History of Present Illness HPI This patient complains of nosebleed. He bent over and sneezed 3 times and then his right nostril started bleeding. Duration 1 hour. No injury. 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 He is unsure of how long he supposed to continue those medications. Denies presyncopal symptoms. No alleviating factors. Symptoms exacerbated by his antiplatelet agents. Symptom severity is moderate. No prior history of nosebleeds PFSH Past Medical History Hx Anticoagulant Therapy: Yes (PLAVIX) Cancer: No Cardiovascular Problems: Yes Endocrine: No Genitourinary: No Musculoskeletal: No Neurologic: No Psychiatric: No Reproductive: No Respiratory: No Past Surgical History Cardiac Surgery: Yes (aortic valve replacement december 2016) Other Surgery: Yes (hernia repair ) Social History Alcohol Use: Yes Tobacco Use: Yes Substance Use: Yes (marijuana ) Allergies-Medications (Allergen,Severity, Reaction): Coded Allergies: No Known Allergies (Unverified , 01/04/17) Reported Meds & Prescriptions Reported Meds & Active Scripts Active Potassium Chloride ER (Potassium Chloride) 20 Meq Tab 20 Meq PO DAILY Lasix (Furosemide) 40 Mg Tab 40 Mg PO DAILY Thera M Plus (Multivitamins/Minerals Therapeutic) 1 Tab 1 Tab PO DAILY Aspirin Low Strength (Aspirin) 81 Mg Chew 81 Mg PO DAILY Lisinopril 5 Mg Tab 2.5 Mg PO DAILY Coreg (Carvedilol) 3.125 Mg Tab 3.125 Mg PO BID Amiodarone (Amiodarone HCl) 200 Mg Tab 200 Mg PO Q12HR prevent heart rhythm irregularity / only for 2 weeks then stop Plavix (Clopidogrel Bisulfate) 75 Mg Tab 75 Mg PO DAILY Review of Systems General / Constitutional: No: Fever Eyes: No: Visual changes HENT: Positive: Nosebleed, No: Headaches Cardiovascular: No: Chest Pain or Discomfort Respiratory: No: Shortness of Breath Gastrointestinal: No: Abdominal Pain Genitourinary: No: Dysuria Musculoskeletal: No: Pain Skin: No Rash Neurologic: No: Weakness Psychiatric: No: Depression Endocrine: No: Polydipsia Hematologic/Lymphatic: No: Easy Bruising Physical Exam Narrative GENERAL: Well-nourished, well-developed patient in no apparent distress. SKIN: Focused skin assessment reveals no rash and nodules. Skin is Warm and dry. HEAD: Atraumatic. Normocephalic. EYES: Pupils equal and round. No scleral icterus. No injection or drainage. ENT: No nasal bleeding from the left side. The right nostril is full of blood clot. After pulling this out with forceps, there is active right sided bleeding. Mucous membranes pink and moist. NECK: Trachea midline. No JVD. CARDIOVASCULAR: Regular rate and rhythm. No murmur appreciated. RESPIRATORY: No accessory muscle use. Clear to auscultation. Breath sounds equal bilaterally. GASTROINTESTINAL: Abdomen soft, non-tender, nondistended. Hepatic and splenic margins not palpable. MUSCULOSKELETAL: No obvious deformities. No clubbing. No cyanosis. No edema. NEUROLOGICAL: Awake and alert. No obvious cranial nerve deficits. Motor grossly within normal limits. Normal speech. PSYCHIATRIC: Appropriate mood and affect; insight and judgment normal. Data Data Last Documented VS Vital Signs Date Time Temp Pulse Resp B/P (MAP) Pulse Ox O2 Delivery O2 Flow Rate FiO2 05/16/17 09:29 97.3 67 22 179/98 (125) 98 Room Air MDM Medical Decision Making Medical Screen Exam Complete: Yes Emergency Medical Condition: Yes Medical Record Reviewed: Yes Differential Diagnosis Epistaxis, medication side effect, nasal trauma Narrative Course I have reviewed the patient's electronic medical record. Patient was seen in December for aortic valve replacement Procedure note: Patient gives verbal consent for nasal packing I pulled the blood clots out of his right nares with forceps I soaked a 7.5 cm Rhino Rocket and water and then apply lubricant and placed it in the right nares and pushed all the way back till was fully inserted. This was tolerated well I blew up the balloon with air Is secured down with tape to the cheek I spoke with the patient's cardiothoracic surgeon's partner Dr. White. He recommended temporally stopping the aspirin and Plavix until this epistaxis was under control I'm writing him some amoxicillin to help prevent sinus infection Recommending primary care and cardiothoracic and ENT follow-up's Surgeon for while and he is not longer bleeding around the packing Diagnosis Primary Impression: Epistaxis Additional Impression: S/P AVR (aortic valve replacement) Additional Instructions: Stop aspirin and Plavix Follow-up with primary care physician and ENT physician and cardiothoracic surgeon Med/Other Pt SpecificInfo: Prescription(s) given Disposition: 01 DISCHARGE HOME Condition: Stable Sukumar Krishna MD May 16, 2017 10:23
[2017-05-16] MEDS ORDERED: AMOX500C PO (10:24)
== END 2017-05-16 11:27 | disposition home or self-care (01) ==
LOC: NEPD 09:26
DX: R04.0 Epistaxis (principal); Z72.0 Tobacco use; Z79.02 Long term (current) use of antithrombotics/antiplatelets; Z79.82 Long term (current) use of aspirin; Z95.2 Presence of prosthetic heart valve
CPT/HCPCS: 30901

== ENCOUNTER 2017-05-18 12:37 | Emergency (ER) | payer MEDICAID ==
[~2017-05-18] VITALS: Ht 182.9 cm; Wt 79.5 kg
[~2017-05-18 12:37] MED LIST changes: +AMOX500C PO; -DOCU1CAP39 PO; -OXYC1TAB63 PO
[2017-05-18 12:38] VITALS: BP 151/96; PULSE 98; RESP 18; TEMP 98.7; O2SAT 97
--- NOTE | 2017-05-18 13:42 | PD ---
HPI Chief Complaint: ENT Complaint Time Seen by Provider: 13:24 Travel History International Travel<30 days: No Contact w/Intl Traveler<30days: No Traveled to known affect area: No History of Present Illness HPI The patient is a 62-year-old male who presents emergency department for reevaluation of a Rhino Rocket that was placed in the right naris over 48 hours ago. The patient states he had a nosebleed from the right nose, had a Rhino Rocket placed in the right near. The patient was taken off of his aspirin and Plavix after they discussed the patient with his seed cutter. The patient states he was unable to get in and see ENT for removal. He denies any drainage or bleeding from the right near, denies swallowing any current blood down the posterior oropharynx. The patient states he has been sneezing and there is been no recurrent bleeding. 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 Patient is currently asymptomatic. PFSH Past Medical History Hx Anticoagulant Therapy: Yes (PLAVIX) Cancer: No Cardiovascular Problems: Yes Endocrine: No Genitourinary: No Musculoskeletal: No Neurologic: No Psychiatric: No Reproductive: No Respiratory: No Past Surgical History Cardiac Surgery: Yes (aortic valve replacement december 2016) Other Surgery: Yes (hernia repair ) Social History Alcohol Use: Yes (occ) Tobacco Use: No Substance Use: Yes (marijuana ) Allergies-Medications (Allergen,Severity, Reaction): Coded Allergies: No Known Allergies (Unverified , 01/04/17) Reported Meds & Prescriptions Reported Meds & Active Scripts Active Amoxicillin 500 Mg Cap 500 Mg PO TID Potassium Chloride ER (Potassium Chloride) 20 Meq Tab 20 Meq PO DAILY Lasix (Furosemide) 40 Mg Tab 40 Mg PO DAILY Lisinopril 5 Mg Tab 2.5 Mg PO DAILY Plavix (Clopidogrel Bisulfate) 75 Mg Tab 75 Mg PO DAILY Review of Systems Except as stated in HPI: all other systems reviewed are Neg HENT: Positive: Nosebleed (as noted in the history of present illness) Hematologic/Lymphatic: No: Easy Bruising Physical Exam Narrative GENERAL: Awake, alert, very pleasant 62-year-old male who appears his stated age and is in no acute respiratory distress. SKIN: Focused skin assessment warm/dry. HEAD: Atraumatic. Normocephalic. EYES: Pupils equal and round. No scleral icterus. No injection or drainage. ENT: Right in place right naris. No visible bleeding around the Rhino Rocket. Oropharynx does not reveal any blood in the posterior oropharynx. NECK: Trachea midline. No JVD. MUSCULOSKELETAL: No obvious deformities. No clubbing. No cyanosis. No edema. NEUROLOGICAL: Awake and alert. No obvious cranial nerve deficits. Motor grossly within normal limits. Normal speech. PSYCHIATRIC: Appropriate mood and affect; insight and judgment normal. Data Data Last Documented VS Vital Signs Date Time Temp Pulse Resp B/P (MAP) Pulse Ox O2 Delivery O2 Flow Rate FiO2 05/18/17 12:38 98.7 98 18 151/96 (114) 97 Room Air Orders Orders Ed Discharge Order (05/18/17 14:42) [facility] Medical Decision Making Medical Screen Exam Complete: Yes Emergency Medical Condition: Yes Medical Record Reviewed: Yes Differential Diagnosis Differential diagnosis includes reevaluation epistaxis, Rhino Rocket removal, coagulopathy, medication side effect. Narrative Course The patient states he is unable to make an appointment to see ENT, the Rhino Rocket has been in place for over 48 hours and there is been no rebleeding. The patient did stop his aspirin and Plavix, after the previous physician discussed the patient with his seed cutter. As there is no recurrent bleeding and he is unable to get in and see ENT, we had a discussion regarding the removal of the Rhino Rocket. The patient was agreeable. The Rhino Rocket was deflated and removed. There is no visible bleeding. The patient was observed in the emergency department. The right naris was re-evaluated at 2:40 PM, there is no bleeding. The patient had no symptoms, he will be discharged home. Procedures Procedure Narrative The Rhino Rocket in the right nares was deflated with a 10 cc syringe and then removed. The patient tolerated the procedure without difficulty. There is no obvious complications. Diagnosis Primary Impression: Epistaxis Patient Instructions: General Instructions Additional Instructions: Discuss with her seed cutter about restarting her medications. If bleeding returns, hold pressure for 15 minutes, if he continues return to the emergency department. Follow-up with your primary physician. Med/Other Pt SpecificInfo: No Change to Meds Disposition: 01 DISCHARGE HOME Condition: Stable Rishi Marley MD May 18, 2017 13:42
== END 2017-05-18 14:48 | disposition home or self-care (01) ==
LOC: NEPD 12:37
DX: R04.0 Epistaxis (principal); Z79.02 Long term (current) use of antithrombotics/antiplatelets; Z79.82 Long term (current) use of aspirin; Z79.899 Other long term (current) drug therapy
CPT/HCPCS: 99283